=== PATIENT | female | born 1950 | race Caucasian/White ===

== ENCOUNTER 2016-06-16 11:52 | Inpatient (IN) | payer MEDICARE, OTHER ==
[~2016-06-16] VITALS: Ht 172.7 cm; Wt 56.7 kg
[2016-06-16] MEDS ORDERED: CLARITIN10 M2 ORAL ×2 (12:08→13:12)
[2016-06-16 12:30] VITALS: BP 123/78
[2016-06-16] MEDS ORDERED: Albuterol ud Inhalation HHN ONE (12:30)
[2016-06-16] MEDS ORDERED: Ipratropium 0.02% Inh Soln 2.5ml UD HHN ONE (12:30)
[2016-06-16 13:09] LABS: APPEARANCE,URINE CLEAR; KETONES,URINE NEGATIVE (NEGATIVE); LEUKOCYTE ESTERASE ,URINE 1+ (NEGATIVE); NITRITE,URINE NEGATIVE (NEGATIVE); PH,URINE 7 (4.5-8.0); PROTEIN,URINE NEGATIVE (NEGATIVE); UROBILINOGEN,URINE NORMAL MG/DL (0.0-1.0)
[2016-06-16 13:10] LABS: BASOPHILS % (AUTO) 1.5 % (0.0-2.0); EOSINOPHILS % (AUTO) 7.4 % (0.0-3.0); LYMPHOCYTES % (AUTO) 10.1 % (20.0-45.0); MEAN CORPUSCULAR HEMOGLOBIN 29.9 PG (27.0-31.0); MEAN CORPUSCULAR HGB CONC 32.2 G/DL (32.0-36.0); MEAN CORPUSCULAR VOLUME 93 FL (80-99); MEAN PLATELET VOLUME 6.4 FL (6.5-10.1); MONOCYTES % (AUTO) 7.9 % (1.0-10.0); NEUTROPHILS % (AUTO) 73.1 % (45.0-75.0); PLATELET COUNT 225 K/UL (150-450); RED BLOOD COUNT 4.12 M/UL (4.20-5.40); RED CELL DISTRIBUTION WIDTH 13.6 % (11.6-14.8); WHITE BLOOD COUNT 6.3 K/UL (4.8-10.8)
[2016-06-16] MEDS ORDERED: ZYPREXA10 MG ORAL (13:12)
[2016-06-16] MEDS ORDERED: NAMENDA5 MG ORAL (13:12)
[2016-06-16] MEDS ORDERED: ZOFRAN ODT4 MG ORAL (13:12)
[2016-06-16] MEDS ORDERED: BENZTROPINE ME0.5 MG PO (13:12)
[2016-06-16] MEDS ORDERED: VITAMIN D400 INTLU ORAL (13:12)
[2016-06-16] MEDS ORDERED: FLONASE ALLERG9.9 ML NS (13:12)
[2016-06-16] MEDS ORDERED: ATIVAN1 MG ORAL ×2 (13:12)
[2016-06-16] MEDS ORDERED: LORazepam Inj 2mg/ml 1ml ONE (13:19)
[2016-06-16 13:27] LABS: BACTERIA,URINE OCCASIONAL /HPF; RBC,URINE 0-2 /HPF (0 - 2); SQUAMOUS EPITHELIAL CELL,UR OCCASIONAL /LPF (NONE/OCC); WBC,URINE 0-2 /HPF (0 - 2)
[2016-06-16 13:29] LABS: ALANINE AMINOTRANSFERASE 10 U/L (3-33); ALBUMIN/GLOBULIN RATIO 1.3 (1.0-2.7); ANION GAP 12 (5-15); ASPARTATE AMINO TRANSFERASE 15 U/L (5-40); CALCIUM 9.5 mg/dL (8.6-10.2); CARBON DIOXIDE 28 mEQ/L (20-30); CHLORIDE 103 mEQ/L (98-107); CREATININE 0.9 mg/dL (0.5-0.9); GLOMERULAR FILTRATION RATE > 60 mL/min (>60); HEMOLYSIS 31; POTASSIUM 4.5 mEQ/L (3.4-4.9); SODIUM 143 mEQ/L (135-145); TOTAL PROTEIN 6.7 g/dL (6.6-8.7)
[2016-06-16] MEDS ORDERED: LORazepam Inj 2mg/ml 1ml IV ONE (13:30)
[2016-06-16 13:39] LABS: TROPONIN I < 0.30 ng/mL (<=0.30)
[2016-06-16 13:40] LABS: CKMB 1.6 ng/mL (< 3.8)
--- NOTE | 2016-06-16 14:09 | Diagnostic Imaging Report ---
Indication: Dyspnea Comparison: None A single view chest radiograph was obtained. Findings: No definite infiltrate or pulmonary vascular congestion identified. The heart is enlarged. The aorta is mildly enlarged consistent with atherosclerotic vascular disease. The bones are osteopenic. Impression: No acute disease
--- NOTE | 2016-06-16 14:51 | Emergency Room Report ---
History of Present Illness General Chief Complaint: Upper Respiratory Illness Source: Medical Record Present Illness HPI 66-year-old female presents to ED for evaluation. Per EMS patient had cough and congestion for many weeks now. Patient resides in convalescent home. Cough is productive. No reported fevers or chills. Patient has history of paranoid schizophrenia. Denies chest pain, notes shortness of breath. Notes history of COPD. Denies sick contacts or recent travel. Allergies: Coded Allergies: ASPIRIN (Verified Allergy, Unknown, 06/16/16) CELECOXIB (Verified Allergy, Unknown, 06/16/16) IBUPROFEN (Verified Allergy, Unknown, 06/16/16) Uncoded Allergies: NSAIDS (Allergy, Unknown, 06/16/16) Patient History Past Medical History: psych hx Past Surgical History: none Pertinent Family History: none Social History: Denies: alcohol use, drug use, smoking Now: No Immunizations: UTD Reviewed Nursing Documentation: PMH: Agreed, PSxH: Agreed Nursing Documentation-PMH History Of Psychiatric Problem: Yes - Paranoid schizophrenia Review of Systems All Other Systems: negative except mentioned in HPI Physical Exam Vital Signs Date Time Temp Pulse Resp B/P Pulse Ox O2 Delivery O2 Flow Rate FiO2 06/16/16 11:55 98.2 83 20 123/78 93 Room Air Sp02 EP Interpretation: reviewed, normal General Appearance: no apparent distress, alert, GCS 15, non-toxic Head: normocephalic Eyes: bilateral eye PERRL, bilateral eye normal inspection ENT: normal ENT inspection Neck: normal inspection Respiratory: chest non-tender, normal breath sounds, decreased breath sounds, speaking full sentences, wheezing Cardiovascular #1: regular rate, rhythm, no edema Gastrointestinal: normal bowel sounds, non tender, soft, non-distended, no guarding, no rebound Rectal: deferred Genitourinary: no CVA tenderness Musculoskeletal: normal inspection Neurologic: alert, oriented x3, responsive, motor strength/tone normal, sensory intact, speech normal Psychiatric: other - paranoid schizophrenia Skin: normal inspection Lymphatic: normal inspection Medical Decision Making Diagnostic Impression: Primary Impression: COPD (chronic obstructive pulmonary disease) Qualified Codes: J44.9 - Chronic obstructive pulmonary disease, unspecified ER Course Hospital Course 66-year-old F presenting to ED with SOB, congestion. h/o COPD Differential diagnoses include: Pneumonia, CHF exacerbation, pneumothorax, fluid overload Clinical course Patient placed on stretcher. 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 After initial history and physical, I ordered nebulizer treatments. I ordered labs, IV fluids, EKG, chest x-ray, blood cultures, UA. Labs - no leukocytosis noted, hemoglobin/hematocrit stable, electrolytes okay, lactate okay, troponins negative CXR - no infiltrates abx given. Case discussed with Dr. Shannon and he agreed to the patient to his service for further care and support I feel this is a highly complex case requiring extensive working including EKG/ Rhythm strip, Xray/CT/US, Blood/urine lab work, repeat exams while in ED, and administration of strong opiates/narcotics for pain control, admission to hospital or close patient follow up. Diagnosis - COPD Patient admitted to floor in serious conditon Labs Test 06/16/16 12:45 White Blood Count 6.3 K/UL (4.8-10.8) Red Blood Count 4.12 M/UL (4.20-5.40) Hemoglobin 12.3 G/DL (12.0-16.0) Hematocrit 38.4 % (37.0-47.0) Mean Corpuscular Volume 93 FL (80-99) Mean Corpuscular Hemoglobin 29.9 PG (27.0-31.0) Mean Corpuscular Hemoglobin Concent 32.2 G/DL (32.0-36.0) Red Cell Distribution Width 13.6 % (11.6-14.8) Platelet Count 225 K/UL (150-450) Mean Platelet Volume 6.4 FL (6.5-10.1) Neutrophils (%) (Auto) 73.1 % (45.0-75.0) Lymphocytes (%) (Auto) 10.1 % (20.0-45.0) Monocytes (%) (Auto) 7.9 % (1.0-10.0) Eosinophils (%) (Auto) 7.4 % (0.0-3.0) Basophils (%) (Auto) 1.5 % (0.0-2.0) Urine Color Pale yellow Urine Appearance Clear Urine pH 7 (4.5-8.0) Urine Specific [place] 1.005 (1.005-1.035) Urine Protein Negative (NEGATIVE) Urine Glucose (UA) Negative (NEGATIVE) Urine Ketones Negative (NEGATIVE) Urine Occult Blood Negative (NEGATIVE) Urine Nitrite Negative (NEGATIVE) Urine Bilirubin Negative (NEGATIVE) Urine Urobilinogen Normal MG/DL (0.0-1.0) Urine Leukocyte Esterase 1+ (NEGATIVE) Urine RBC 0-2 /HPF (0 - 2) Urine WBC 0-2 /HPF (0 - 2) Urine Squamous Epithelial Cells Occasional /LPF Urine Bacteria Occasional /HPF (NONE) Sodium Level 143 mEQ/L (135-145) Potassium Level 4.5 mEQ/L (3.4-4.9) Chloride Level 103 mEQ/L (98-107) Carbon Dioxide Level 28 mEQ/L (20-30) Anion Gap 12 (5-15) Blood Urea Nitrogen 14 mg/dL (7-23) Creatinine 0.9 mg/dL (0.5-0.9) Estimat Glomerular Filtration Rate > 60 mL/min (>60) Glucose Level 114 mg/dL (74-106) Lactic Acid Level 0.70 mmol/L (0.66-2.22) Calcium Level 9.5 mg/dL (8.6-10.2) Total Bilirubin < 0.2 mg/dL (0.0-1.2) Aspartate Amino Transf (AST/SGOT) 15 U/L (5-40) Alanine Aminotransferase (ALT/SGPT) 10 U/L (3-33) Alkaline Phosphatase 78 U/L (35-104) Total Creatine Kinase 101 U/L (26-140) Creatine Kinase MB 1.6 ng/mL (< 3.8) Creatine Kinase MB Relative Index 1.5 Troponin I < 0.30 ng/mL (<=0.30) Pro-B-Type Natriuretic Peptide 59 pg/mL (0-125) Total Protein 6.7 g/dL (6.6-8.7) Albumin 3.9 g/dL (3.5-5.2) Globulin 2.8 g/dL Albumin/Globulin Ratio 1.3 (1.0-2.7) EKG Diagnostic Results Rate: normal Rhythm: NSR ST Segments: no acute changes ASA given to the pt in ED: No Rhythm Strip Diag. Results EP Interpretation: yes Rhythm: NSR, no PVC's, no ectopy Chest X-Ray Diagnostic Results EP Interpretation: Yes Findings: no consolidation, no effusion, no pneumothorax, no acute cardiopulmonary disease Number of Views: 1 Last Vital Signs Date Time Temp Pulse Resp B/P Pulse Ox O2 Delivery O2 Flow Rate FiO2 06/16/16 14:37 98.2 06/16/16 12:30 83 20 Room Air 06/16/16 12:30 123/78 93 Status: improved Disposition: ADMITTED INPATIENT Condition: Serious Referrals: HERB SHANNON (PCP) HELLEN BARGER M.D. Jun 16, 2016 14:51
--- NOTE | 2016-06-16 14:55 | Consultation ---
History of Present Illness General Date patient seen: Jun 16, 2016 Chief Complaint: Upper Respiratory Illness Referring physician: Dr snell Present Illness HPI 66-year-old female with psychiatric disorder and COPD presents to ED for evaluation of cough and congestion for many weeks now. Patient resides in convalescent home. Cough is productive. No reported fevers or chills. Denies chest pain, notes shortness of breath. she was diagnosed to have acute exacerbation of COPD and admitted for further wok up Allergies: Coded Allergies: ASPIRIN (Verified Allergy, Unknown, 06/16/16) CELECOXIB (Verified Allergy, Unknown, 06/16/16) IBUPROFEN (Verified Allergy, Unknown, 06/16/16) Uncoded Allergies: NSAIDS (Allergy, Unknown, 06/16/16) Medication History Scheduled Loratadine (Claritin), 10 MG ORAL DAILY, (Reported) Loratadine (Claritin), 10 MG ORAL DAILY, (Reported) Lorazepam* (Ativan*), 1 MG ORAL EVERY 6 HOURS, (Reported) Lorazepam* (Ativan*), 1 MG ORAL THREE TIMES A DAY, (Reported) Memantine Hcl* (Namenda*), 5 MG ORAL TWICE A DAY, (Reported) Olanzapine* (Zyprexa*), 10 MG ORAL DAILY, (Reported) Olanzapine* (Zyprexa*), 15 MG ORAL DAILY, (Reported) Vitamin D (Vitamin D3), 1,000 UNITS ORAL DAILY, (Reported) Scheduled PRN Ondansetron Odt* (Zofran Odt*), 4 MG ORAL Q8H PRN for Nausea & Vomiting, ( Reported) Miscellaneous Medications Benztropine Mesylate (Benztropine Mesylate), 1 MG PO, (Reported) Fluticasone Propionate (Flonase Allergy Relief), 9.9 ML NS, (Reported) Patient History Healthcare decision maker Resuscitation status Advanced Directive on File Past Medical/Surgical History Past Medical/Surgical History: (1) Dementia (2) Psychiatric disorder Review of Systems All Other Systems: negative except mentioned in HPI Physical Exam General Appearance: WD/WN Lines, tubes and drains: peripheral HEENT: normocephalic, atraumatic Neck: non-tender Respiratory/Chest: chest wall non-tender Cardiovascular/Chest: normal peripheral pulses, normal rate Abdomen: normal bowel sounds Genitourinary/Rectal: normal genital exam Extremities: normal range of motion Skin Exam: normal pigmentation 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 Last 24 Hour Vital Signs Date Time Temp Pulse Resp B/P Pulse Ox O2 Delivery O2 Flow Rate FiO2 06/16/16 14:37 98.2 06/16/16 12:30 83 20 Room Air 06/16/16 12:30 20 123/78 93 Room Air 06/16/16 11:55 98.2 83 20 123/78 93 Room Air Laboratory Tests Test 06/16/16 12:45 White Blood Count 6.3 K/UL (4.8-10.8) Red Blood Count 4.12 M/UL (4.20-5.40) L Hemoglobin 12.3 G/DL (12.0-16.0) Hematocrit 38.4 % (37.0-47.0) Mean Corpuscular Volume 93 FL (80-99) Mean Corpuscular Hemoglobin 29.9 PG (27.0-31.0) Mean Corpuscular Hemoglobin Concent 32.2 G/DL (32.0-36.0) Red Cell Distribution Width 13.6 % (11.6-14.8) Platelet Count 225 K/UL (150-450) Mean Platelet Volume 6.4 FL (6.5-10.1) L Neutrophils (%) (Auto) 73.1 % (45.0-75.0) Lymphocytes (%) (Auto) 10.1 % (20.0-45.0) L Monocytes (%) (Auto) 7.9 % (1.0-10.0) Eosinophils (%) (Auto) 7.4 % (0.0-3.0) H Basophils (%) (Auto) 1.5 % (0.0-2.0) Urine Color Pale yellow Urine Appearance Clear Urine pH 7 (4.5-8.0) Urine Specific [place] 1.005 (1.005-1.035) Urine Protein Negative (NEGATIVE) Urine Glucose (UA) Negative (NEGATIVE) Urine Ketones Negative (NEGATIVE) Urine Occult Blood Negative (NEGATIVE) Urine Nitrite Negative (NEGATIVE) Urine Bilirubin Negative (NEGATIVE) Urine Urobilinogen Normal MG/DL (0.0-1.0) Urine Leukocyte Esterase 1+ (NEGATIVE) H Urine RBC 0-2 /HPF (0 - 2) Urine WBC 0-2 /HPF (0 - 2) Urine Squamous Epithelial Cells Occasional /LPF Urine Bacteria Occasional /HPF (NONE) Sodium Level 143 mEQ/L (135-145) Potassium Level 4.5 mEQ/L (3.4-4.9) Chloride Level 103 mEQ/L (98-107) Carbon Dioxide Level 28 mEQ/L (20-30) Anion Gap 12 (5-15) Blood Urea Nitrogen 14 mg/dL (7-23) Creatinine 0.9 mg/dL (0.5-0.9) Estimat Glomerular Filtration Rate > 60 mL/min (>60) Glucose Level 114 mg/dL (74-106) H Lactic Acid Level 0.70 mmol/L (0.66-2.22) Calcium Level 9.5 mg/dL (8.6-10.2) Total Bilirubin < 0.2 mg/dL (0.0-1.2) Aspartate Amino Transf (AST/SGOT) 15 U/L (5-40) Alanine Aminotransferase (ALT/SGPT) 10 U/L (3-33) Alkaline Phosphatase 78 U/L (35-104) Total Creatine Kinase 101 U/L (26-140) Creatine Kinase MB 1.6 ng/mL (< 3.8) Creatine Kinase MB Relative Index 1.5 Troponin I < 0.30 ng/mL (<=0.30) Pro-B-Type Natriuretic Peptide 59 pg/mL (0-125) Total Protein 6.7 g/dL (6.6-8.7) Albumin 3.9 g/dL (3.5-5.2) Globulin 2.8 g/dL Albumin/Globulin Ratio 1.3 (1.0-2.7) Microbiology Date/Time Source Procedure Growth Status 06/16/16 13:45 Nasal Nares Influenza Types A,B Antigen (BEATRIZ) - Final Complete Height (Feet): 5 Height (Inches): 8.00 Weight (Pounds): 125 Medications Current Medications Medications (Trade) Dose Ordered Sig/Toyin Route PRN Reason Start Time Stop Time Status Last Admin Dose Admin Levofloxacin (Levaquin 750mg/ D5W) 150 ml @ 100 mls/hr NOW ONCE IVPB 06/16/16 14:30 06/16/16 15:59 06/16/16 14:35 Assessment/Plan Problem List: (1) Purulent bronchitis ICD Codes: J41.1 - Mucopurulent chronic bronchitis SNOMED: 54140078 (2) Acute respiratory failure ICD Codes: J96.00 - Acute respiratory failure, unspecified whether with hypoxia or hypercapnia SNOMED: 70178724 (3) Dementia ICD Codes: F03.90 - Unspecified dementia without behavioral disturbance SNOMED: 80075702 (4) COPD (chronic obstructive pulmonary disease) ICD Codes: J44.9 - Chronic obstructive pulmonary disease, unspecified SNOMED: 54152692 Qualifiers: Qualified Codes: J44.9 - Chronic obstructive pulmonary disease, unspecified Assessment/Plan respiratory treatment IV antibioitcs titrate fio2 dvt prophylaxis continue psychiatric meds. MATT JACKSON Jun 16, 2016 14:55
[2016-06-16] MEDS ORDERED: Nitroglycerin Subl 0.4mg tab (Bottle Of 25) SL PRN ×2 (15:00→16:15)
[2016-06-16] MEDS ORDERED: DuoNeb 0.5-3(2.5)mg/3ml neb HHN PRN (15:00)
[2016-06-16] MEDS ORDERED: Promethazine/Codeine 5ml UD ORAL PRN (15:00)
[2016-06-16] MEDS ORDERED: Morphine Sulfate 2mg/ml Inj IVP PRN (15:00)
[2016-06-16] MEDS ORDERED: LORazepam Inj 2mg/ml 1ml IV PRN (15:00)
[2016-06-16] MEDS ORDERED: Ketorolac 30mg Inj IV PRN ×2 (15:00→16:15)
--- NOTE | 2016-06-16 15:01 | Infectious Diseases Prog Note ---
Assessment/Plan Problems: (1) Upper respiratory infection Assessment & Plan: no evidence of influenza, will start levofloxacin (2) Purulent bronchitis Assessment & Plan: will send sputum for culture , and start levofloxacin (3) Psychiatric disorder Assessment & Plan: continue psych meds, follow up with psych (4) Dementia Assessment & Plan: continue supportive care Subjective Allergies: Coded Allergies: ASPIRIN (Verified Allergy, Unknown, 06/16/16) CELECOXIB (Verified Allergy, Unknown, 06/16/16) IBUPROFEN (Verified Allergy, Unknown, 06/16/16) Uncoded Allergies: NSAIDS (Allergy, Unknown, 06/16/16) Objective Vital Signs Last 24 Hour Vital Signs Date Time Temp Pulse Resp B/P Pulse Ox O2 Delivery O2 Flow Rate FiO2 06/16/16 14:37 98.2 06/16/16 12:30 83 20 Room Air 06/16/16 12:30 20 123/78 93 Room Air 06/16/16 11:55 98.2 83 20 123/78 93 Room Air Height (Feet): 5 Height (Inches): 8.00 Weight (Pounds): 125 Microbiology Date/Time Source Procedure Growth Status 06/16/16 13:45 Nasal Nares Influenza Types A,B Antigen (BEATRIZ) - Final Complete Laboratory Tests Test 06/16/16 12:45 White Blood Count 6.3 K/UL (4.8-10.8) Red Blood Count 4.12 M/UL (4.20-5.40) L Hemoglobin 12.3 G/DL (12.0-16.0) Hematocrit 38.4 % (37.0-47.0) Mean Corpuscular Volume 93 FL (80-99) Mean Corpuscular Hemoglobin 29.9 PG (27.0-31.0) Mean Corpuscular Hemoglobin Concent 32.2 G/DL (32.0-36.0) Red Cell Distribution Width 13.6 % (11.6-14.8) Platelet Count 225 K/UL (150-450) Mean Platelet Volume 6.4 FL (6.5-10.1) L Neutrophils (%) (Auto) 73.1 % (45.0-75.0) Lymphocytes (%) (Auto) 10.1 % (20.0-45.0) L Monocytes (%) (Auto) 7.9 % (1.0-10.0) Eosinophils (%) (Auto) 7.4 % (0.0-3.0) H Basophils (%) (Auto) 1.5 % (0.0-2.0) Urine Color Pale yellow Urine Appearance Clear Urine pH 7 (4.5-8.0) Urine Specific [place] 1.005 (1.005-1.035) Urine Protein Negative (NEGATIVE) Urine Glucose (UA) Negative (NEGATIVE) Urine Ketones Negative (NEGATIVE) Urine Occult Blood Negative (NEGATIVE) Urine Nitrite Negative (NEGATIVE) Urine Bilirubin Negative (NEGATIVE) Urine Urobilinogen Normal MG/DL (0.0-1.0) Urine Leukocyte Esterase 1+ (NEGATIVE) H Urine RBC 0-2 /HPF (0 - 2) Urine WBC 0-2 /HPF (0 - 2) Urine Squamous Epithelial Cells Occasional /LPF Urine Bacteria Occasional /HPF (NONE) Sodium Level 143 mEQ/L (135-145) Potassium Level 4.5 mEQ/L (3.4-4.9) Chloride Level 103 mEQ/L (98-107) Carbon Dioxide Level 28 mEQ/L (20-30) Anion Gap 12 (5-15) Blood Urea Nitrogen 14 mg/dL (7-23) Creatinine 0.9 mg/dL (0.5-0.9) Estimat Glomerular Filtration Rate > 60 mL/min (>60) Glucose Level 114 mg/dL (74-106) H Lactic Acid Level 0.70 mmol/L (0.66-2.22) Calcium Level 9.5 mg/dL (8.6-10.2) Total Bilirubin < 0.2 mg/dL (0.0-1.2) Aspartate Amino Transf (AST/SGOT) 15 U/L (5-40) Alanine Aminotransferase (ALT/SGPT) 10 U/L (3-33) Alkaline Phosphatase 78 U/L (35-104) Total Creatine Kinase 101 U/L (26-140) Creatine Kinase MB 1.6 ng/mL (< 3.8) Creatine Kinase MB Relative Index 1.5 Troponin I < 0.30 ng/mL (<=0.30) Pro-B-Type Natriuretic Peptide 59 pg/mL (0-125) Total Protein 6.7 g/dL (6.6-8.7) Albumin 3.9 g/dL (3.5-5.2) Globulin 2.8 g/dL Albumin/Globulin Ratio 1.3 (1.0-2.7) Current Medications Medications (Trade) Dose Ordered Sig/Toyin Route PRN Reason Start Time Stop Time Status Last Admin Dose Admin Albuterol/ Ipratropium (DuoNeb 0.5-3(2.5)mg/3ml) 3 ml EVERY 4 HOURS PRN HHN dyspnea 06/16/16 15:00 06/21/16 14:59 UNV Dextrose (Dextrose 50%) STAT PRN IV Hypoglycemia 06/16/16 15:00 07/16/16 14:59 UNV Heparin Sodium (Porcine) (Heparin 5000 units/ml) 5,000 units EVERY 12 HOURS SUBQ 06/16/16 21:00 07/16/16 20:59 UNV Insulin Aspart (NovoLOG) BEFORE MEALS AND HS SUBQ 06/16/16 16:30 07/16/16 16:29 UNV Ketorolac Tromethamine (Toradol 30mg) 30 mg EVERY 8 HOURS PRN IV moderate pain 4-6 06/16/16 15:00 06/21/16 14:59 UNV Levofloxacin 150 ml @ 100 mls/hr NOW ONCE IVPB 06/16/16 14:30 06/16/16 15:59 06/16/16 14:35 Levofloxacin (Levaquin) 100 ml @ 100 mls/hr Q24HRS IVPB 06/16/16 15:00 06/23/16 14:59 UNV Lorazepam (Ativan 2mg/ml 1ml) 0.5 mg Q4H PRN IV For Anxiety 06/16/16 15:00 06/23/16 14:59 UNV Memantine (Namenda) 5 mg TWICE A DAY ORAL 06/16/16 18:00 07/16/16 17:59 UNV Methylprednisolone Sodium Succinate (Solu-MEDROL) 60 mg EVERY 6 HOURS IV 06/16/16 18:00 07/16/16 17:59 UNV Morphine Sulfate (Morphine Sulfate) 2 mg EVERY 4 HOURS PRN IVP severe pain 7-10 06/16/16 15:00 06/23/16 14:59 UNV Nitroglycerin (Ntg) 0.4 mg Q5M X 3 DOSES PRN SL Prn Chest Pain 06/16/16 15:00 07/16/16 14:59 UNV Ondansetron HCl (Zofran) 4 mg Q6H PRN IVP Nausea & Vomiting 06/16/16 15:00 07/16/16 14:59 UNV Piperacillin Sod/ Tazobactam Sod/ Dextrose (Zosyn/D5W 55ml) 50 ml @ 100 mls/hr EVERY 8 HOURS IV 06/16/16 22:00 06/21/16 21:59 UNV Promethazine HCl/ Codeine (Phenergan with Codeine) 5 ml EVERY 6 HOURS PRN ORAL cough 06/16/16 15:00 07/16/16 14:59 UNV Temazepam (Restoril) 15 mg HSPRN PRN ORAL Insomnia 06/16/16 15:00 06/23/16 14:59 UNV Theophylline 100 mg 100 mg EVERY 12 HOURS ORAL 06/16/16 21:00 07/16/16 20:59 UNV Ava Harvey M.D. Jun 16, 2016 15:01
[2016-06-16] MEDS ORDERED: NovoLOG Insulin Flexpen SUBQ SCH (16:30)
[2016-06-16] MEDS: DuoNeb 0.5-3(2.5)mg/3ml neb HHN PRN ×2 (17:16→21:03)
[2016-06-16] MEDS: Promethazine/Codeine 5ml UD ORAL PRN (17:53)
[2016-06-16] MEDS: Memantine 5 MG TAB ORAL SCH (17:54)
[2016-06-16] MEDS: Solu-MEDROL 125mg Inj IV SCH (17:55)
[2016-06-16] MEDS ORDERED: Memantine 10mg tab ORAL SCH (18:00)
[2016-06-16] MEDS ORDERED: Solu-MEDROL 125mg Inj IV SCH (18:00)
[2016-06-16] MEDS: Morphine Sulfate 2mg/ml Inj IVP PRN (19:44)
[2016-06-16 20:00] VITALS: BP 153/87
[2016-06-16] MEDS ORDERED: Theophylline ER 100mg ORAL SCH (21:00)
[2016-06-16] MEDS ORDERED: Heparin 5000 units/ml inj SUBQ SCH (21:00)
[2016-06-16] MEDS: Theophylline ER 100mg ORAL SCH (21:38)
[2016-06-16] MEDS: NovoLOG Insulin Flexpen SUBQ SCH (21:39)
[2016-06-16] MEDS: Heparin 5000 units/ml inj SUBQ SCH (21:42)
--- NOTE | 2016-06-16 22:28 | Consultation ---
DATE OF CONSULTATION: INFECTIOUS DISEASE CONSULTATION REASON FOR CONSULTATION: Upper respiratory infection, bronchitis, recommendation for antibiotics therapy. REQUESTING PHYSICIAN: Antonio Alston M.D. HISTORY OF PRESENT ILLNESS: The patient is a 66-year-old female with past medical history of chronic obstructive pulmonary disease, presented to [facility] emergency room with chief complaint of cough and congestion for many weeks. The patient initially had dry cough now mildly productive of whitish phlegm. She lives in a convalescent home. Her phlegm sometimes is greenish. Denied any fever or chills. No chest pain or shortness of breath. No sick contacts or recent travel. Her temperature was 98.2 in the emergency room. Her O2 saturation 93% on room air. She was found to be wheezing with diminished breathing sounds on both lung matias. Chest x-ray did not show any acute infiltration. Influenza screening was negative. The patient was admitted to the hospital for COPD exacerbation, possible bronchitis, and I was asked for the antibiotics recommendation by the primary provider. REVIEW OF SYSTEMS: Unable to obtain, the patient is a poor historian. PAST MEDICAL HISTORY: Significant for schizophrenia with paranoia. PAST SURGICAL HISTORY: Negative. ALLERGIES: She is allergic to aspirin, and ibuprofen. FAMILY HISTORY: Not able to obtain. SOCIAL HISTORY: The patient had no recent drugs, tobacco, or alcohol abuse. MEDICATIONS: She is on Zosyn, heparin, theophylline, methylprednisolone, insulin, albuterol, ketorolac, lorazepam, morphine, nitroglycerin, Zofran, Phenergan, Restoril, and dextrose. PHYSICAL EXAMINATION: VITAL SIGNS: Temperature 98.2, pulse 83, respirations 20, blood pressure 123/78, and pulse oximetry 93% on room air. GENERAL: The patient is a middle-aged female, lying in bed, alert, not in distress, wheezing. HEENT: Normocephalic and atraumatic. Pupils are both reactive to light equally. Moist oral mucosa. No exudate or thrush. NECK: Supple. No lymphadenopathy. CARDIOVASCULAR: Regular rate and rhythm. No murmur or gallop. LUNGS: She had diminished breathing sounds and diffuse wheezing on both sides. ABDOMEN: Soft, nontender, and nondistended. Positive bowel sounds. No hepatosplenomegaly. No ascites. EXTREMITIES: No edema or cyanosis. SKIN: No rash or hives. LABORATORY AND DIAGNOSTIC DATA: White count is 6.3, hemoglobin 12.3, hematocrit 38.4, and platelet count 225,000. BUN of 14, creatinine of 0.9, and glucose of 114. AST of 16. Urinalysis was negative for infection. Microbiology, influenza screening A and B both were negative. Imaging: Chest x-ray showed no acute infiltrates and no acute disease. ASSESSMENT AND PLAN: 1. Upper respiratory infection with no evidence of influenza. We will start levofloxacin empirically and monitor symptoms closely. We will send sputum culture and blood culture. 2. acute bronchitis. We will send sputum culture and blood culture and start levofloxacin, empiric treatment. 3. Psychiatric disorder. Continue psychiatric medications. Follow up with psychiatrist. 4. Dementia. Continue supportive care. Ava Harvey M.D. DR: LEONID JOB#: [id number] CC: ISAC
[2016-06-16] MEDS: LORazepam Inj 2mg/ml 1ml IV PRN (23:55)
[2016-06-17] MEDS: Promethazine/Codeine 5ml UD ORAL PRN ×3 (00:36→17:41)
[2016-06-17] MEDS: Solu-MEDROL 125mg Inj IV SCH ×4 (00:40→17:36)
[2016-06-17] MEDS: Morphine Sulfate 2mg/ml Inj IVP PRN ×3 (00:41→21:31)
[2016-06-17] MEDS: DuoNeb 0.5-3(2.5)mg/3ml neb HHN PRN ×7 (01:14→23:48)
[2016-06-17 04:00] VITALS: BP 100/63
[2016-06-17] MEDS: NovoLOG Insulin Flexpen SUBQ SCH ×4 (06:30→21:32)
[2016-06-17 08:00] VITALS: BP 150/81
[2016-06-17] MEDS: Memantine 5 MG TAB ORAL SCH ×2 (08:22→17:37)
[2016-06-17] MEDS: Theophylline ER 100mg ORAL SCH ×2 (08:22→21:30)
[2016-06-17] MEDS: LORazepam Inj 2mg/ml 1ml IV PRN ×2 (08:22→17:40)
[2016-06-17] MEDS: Heparin 5000 units/ml inj SUBQ SCH ×2 (08:23→21:32)
[2016-06-17 12:00] VITALS: BP 109/64
--- NOTE | 2016-06-17 14:59 | General Progress Note ---
Assessment/Plan Problem List: (1) Pneumonia ICD Codes: J18.9 - Pneumonia, unspecified organism SNOMED: 211603251 (2) Sepsis ICD Codes: A41.9 - Sepsis, unspecified organism SNOMED: 63351598 (3) Purulent bronchitis ICD Codes: J41.1 - Mucopurulent chronic bronchitis SNOMED: 48347891 (4) Acute respiratory failure ICD Codes: J96.00 - Acute respiratory failure, unspecified whether with hypoxia or hypercapnia SNOMED: 74314801 (5) Dementia ICD Codes: F03.90 - Unspecified dementia without behavioral disturbance SNOMED: 05716641 (6) Upper respiratory infection ICD Codes: J06.9 - Acute upper respiratory infection, unspecified SNOMED: 52501347 (7) Psychiatric disorder ICD Codes: F99 - Mental disorder, not otherwise specified SNOMED: 77755284, 322044608 Status: stable, progressing, tolerating diet Assessment/Plan o2 pulm tx abx ot pt diet cbc bmp am Subjective Constitutional: Reports: weakness Respiratory: Reports: shortness of breath Allergies: Coded Allergies: ASPIRIN (Verified Allergy, Unknown, 06/16/16) CELECOXIB (Verified Allergy, Unknown, 06/16/16) IBUPROFEN (Verified Allergy, Unknown, 06/16/16) Uncoded Allergies: NSAIDS (Allergy, Unknown, 06/16/16) All Systems: reviewed and negative except above Subjective sl sob in bed Objective Last 24 Hour Vital Signs Date Time Temp Pulse Resp B/P Pulse Ox O2 Delivery O2 Flow Rate FiO2 06/17/16 12:00 98.4 95 19 109/64 100 Nasal Cannula 2.0 06/17/16 11:51 91 18 96 Nasal Cannula 28 06/17/16 11:41 95 20 96 Nasal Cannula 28 06/17/16 08:00 97.5 112 18 150/81 99 Room Air 06/17/16 07:44 79 20 96 Room Air 21 06/17/16 07:34 88 20 97 Room Air 21 06/17/16 07:33 88 20 Room Air 21 06/17/16 04:00 98.1 86 16 100/63 92 Room Air 06/17/16 03:45 88 20 95 Room Air 21 06/17/16 03:30 80 20 88 Room Air 21 06/16/16 23:45 91 20 93 Room Air 21 06/16/16 23:30 86 20 89 Room Air 21 06/16/16 21:05 90 20 95 Room Air 21 06/16/16 21:04 88 20 91 Room Air 21 06/16/16 20:00 97.9 95 18 153/87 91 Nasal Cannula 2.0 06/16/16 19:30 70 20 Room Air 21 06/16/16 17:26 78 20 98 Room Air 21 06/16/16 17:05 76 24 90 Room Air 21 06/16/16 17:04 76 24 Room Air 21 06/16/16 15:57 98.2 81 20 138/72 96 Nasal Cannula 2.0 Intake and Output 06/16/16 06/17/16 19:00 07:00 Intake Total 360 ml Balance 360 ml Intake Oral 360 ml # Voids 2 Height (Feet): 5 Height (Inches): 8.00 Weight (Pounds): 125 General Appearance: lethargic EENT: normal ENT inspection Neck: normal alignment Cardiovascular: normal peripheral pulses, normal rate, regular rhythm Respiratory/Chest: chest wall non-tender, lungs clear, normal breath sounds Abdomen: normal bowel sounds, non tender, soft Extremities: normal inspection Edema: no edema noted Arm (L), no edema noted Arm (R), no edema noted Leg (L), no edema noted Leg (R), no edema noted Pedal (L), no edema noted Pedal (R), no edema noted Generalized Neurologic: motor weakness Skin: normal pigmentation, warm/dry HERB SHANNON Jun 17, 2016 14:59
[2016-06-17 16:06] VITALS: BP 116/66
--- NOTE | 2016-06-17 17:48 | Pulmonology Progress Note ---
Assessment/Plan Problems: (1) Purulent bronchitis (2) Acute respiratory failure (3) Dementia (4) COPD (chronic obstructive pulmonary disease) Assessment/Plan improving no sputum culture yet continue antibiotics same dose steroids check labs Subjective ROS Limited/Unobtainable: No Interval Events: less cough, less short of breath Allergies: Coded Allergies: ASPIRIN (Verified Allergy, Unknown, 06/16/16) CELECOXIB (Verified Allergy, Unknown, 06/16/16) IBUPROFEN (Verified Allergy, Unknown, 06/16/16) Uncoded Allergies: NSAIDS (Allergy, Unknown, 06/16/16) Objective Last 24 Hour Vital Signs Date Time Temp Pulse Resp B/P Pulse Ox O2 Delivery O2 Flow Rate FiO2 06/17/16 16:06 99.0 100 21 116/66 94 Room Air 06/17/16 15:47 89 18 98 Nasal Cannula 28 06/17/16 15:37 84 18 98 Nasal Cannula 28 06/17/16 12:00 98.4 95 19 109/64 100 Nasal Cannula 2.0 06/17/16 11:51 91 18 96 Nasal Cannula 28 06/17/16 11:41 95 20 96 Nasal Cannula 28 06/17/16 08:00 97.5 112 18 150/81 99 Room Air 06/17/16 07:44 79 20 96 Room Air 21 06/17/16 07:34 88 20 97 Room Air 21 06/17/16 07:33 88 20 Room Air 21 06/17/16 04:00 98.1 86 16 100/63 92 Room Air 06/17/16 03:45 88 20 95 Room Air 21 06/17/16 03:30 80 20 88 Room Air 21 06/16/16 23:45 91 20 93 Room Air 21 06/16/16 23:30 86 20 89 Room Air 21 06/16/16 21:05 90 20 95 Room Air 21 06/16/16 21:04 88 20 91 Room Air 21 06/16/16 20:00 97.9 95 18 153/87 91 Nasal Cannula 2.0 06/16/16 19:30 70 20 Room Air 21 Intake and Output 06/16/16 06/17/16 18:59 06:59 Intake Total 360 ml Balance 360 ml Intake Oral 360 ml # Voids 2 General Appearance: WD/WN HEENT: normocephalic, atraumatic Respiratory/Chest: chest wall non-tender, lungs clear Cardiovascular: normal peripheral pulses, normal rate Abdomen: normal bowel sounds Genitourinary: normal external genitalia Extremities: no cyanosis 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, no motor/sensory deficits Microbiology Date/Time Source Procedure Growth Status 06/16/16 13:45 Nasal Nares Influenza Types A,B Antigen (BEATRIZ) - Final Complete Current Medications Medications (Trade) Dose Ordered Sig/Toyin Route PRN Reason Start Time Stop Time Status Last Admin Dose Admin Albuterol/ Ipratropium 3 ml 3 ml EVERY 4 HOURS PRN HHN dyspnea 06/16/16 16:15 06/21/16 14:59 06/17/16 15:37 Dextrose (Dextrose 50%) STAT PRN IV Hypoglycemia 06/16/16 16:15 07/16/16 14:59 Heparin Sodium (Porcine) (Heparin 5000 units/ml) 5,000 units EVERY 12 HOURS SUBQ 06/16/16 21:00 07/16/16 20:59 06/17/16 08:23 Insulin Aspart (NovoLOG) BEFORE MEALS AND HS SUBQ 06/16/16 21:00 07/16/16 20:59 06/16/16 21:39 Ketorolac Tromethamine (Toradol 30mg) 30 mg EVERY 8 HOURS PRN IV moderate pain 4-6 06/16/16 16:15 06/21/16 14:59 Levofloxacin (Levaquin) 100 ml @ 100 mls/hr Q24HRS IVPB 06/17/16 14:00 06/24/16 13:59 06/17/16 13:15 Lorazepam (Ativan 2mg/ml 1ml) 0.5 mg Q4H PRN IV For Anxiety 06/16/16 16:15 06/23/16 14:59 06/17/16 08:22 Memantine (Namenda) 5 mg TWICE A DAY ORAL 06/16/16 18:00 07/16/16 17:59 06/17/16 08:22 Methylprednisolone Sodium Succinate (Solu-MEDROL) 60 mg EVERY 6 HOURS IV 06/16/16 18:00 07/16/16 17:59 06/17/16 11:22 Morphine Sulfate (Morphine Sulfate) 2 mg EVERY 4 HOURS PRN IVP severe pain 7-10 06/16/16 16:15 06/23/16 14:59 06/17/16 11:17 Nitroglycerin (Ntg) 0.4 mg Q5M X 3 DOSES PRN SL Prn Chest Pain 06/16/16 16:15 07/16/16 14:59 Ondansetron HCl (Zofran) 4 mg Q6H PRN IVP Nausea & Vomiting 06/16/16 16:15 07/16/16 14:59 Promethazine HCl/ Codeine (Phenergan with Codeine) 5 ml EVERY 6 HOURS PRN ORAL cough 06/16/16 16:15 07/16/16 14:59 06/17/16 08:42 Temazepam (Restoril) 15 mg HSPRN PRN ORAL Insomnia 06/16/16 16:15 06/23/16 14:59 Theophylline (Norberto-Dur) 100 mg EVERY 12 HOURS ORAL 06/16/16 21:00 07/16/16 20:59 06/17/16 08:22 MATT JACKSON Jun 17, 2016 17:48
[2016-06-17 20:00] VITALS: BP 133/65
--- NOTE | 2016-06-17 20:19 | Cardiology Report ---
APPROVED REPORT EKG Measurement Heart [id number] Normal sinus rhythm Cannot rule out Anterior infarct, age undetermined Abnormal ECG
[2016-06-18] VITALS: BP 122/61
[2016-06-18] MEDS: Solu-MEDROL 125mg Inj IV SCH ×4 (00:36→21:53)
[2016-06-18] MEDS: LORazepam Inj 2mg/ml 1ml IV PRN ×2 (03:51→18:18)
[2016-06-18 04:00] VITALS: BP 122/64
[2016-06-18] MEDS: DuoNeb 0.5-3(2.5)mg/3ml neb HHN PRN ×5 (04:02→22:28)
[2016-06-18] MEDS: NovoLOG Insulin Flexpen SUBQ SCH ×4 (06:51→21:51)
[2016-06-18 07:22] LABS: MEAN CORPUSCULAR HEMOGLOBIN 29.8 PG (27.0-31.0); MEAN CORPUSCULAR HGB CONC 32.3 G/DL (32.0-36.0); MEAN CORPUSCULAR VOLUME 92 FL (80-99); MEAN PLATELET VOLUME 5.8 FL (6.5-10.1); PLATELET COUNT 235 K/UL (150-450); RED BLOOD COUNT 3.91 M/UL (4.20-5.40); RED CELL DISTRIBUTION WIDTH 13.6 % (11.6-14.8); WHITE BLOOD COUNT 13.6 K/UL (4.8-10.8)
[2016-06-18 07:29] LABS: ANION GAP 11 (5-15); CALCIUM 9.1 mg/dL (8.6-10.2); CARBON DIOXIDE 29 mEQ/L (20-30); CHLORIDE 101 mEQ/L (98-107); CREATININE 0.8 mg/dL (0.5-0.9); GLOMERULAR FILTRATION RATE > 60 mL/min (>60); HEMOLYSIS 8; POTASSIUM 4.2 mEQ/L (3.4-4.9); SODIUM 141 mEQ/L (135-145)
[2016-06-18 08:00] VITALS: BP 101/49
[2016-06-18 08:05] LABS: BAND NEUTROPHILS % (MANUAL) 0 % (0-8); BASOPHILS % (MANUAL) 0 % (0-2); EOSINOPHILS % (MANUAL) 0 % (0-3); LYMPHOCYTES % (MANUAL) 1 % (20-45); NEUTROPHILS % (MANUAL) 95 % (45-75); PLATELET ESTIMATE ADEQUATE; TOTAL CELLS COUNTED 100
[2016-06-18 08:06] LABS: PLATELET MORPHOLOGY NORMAL
[2016-06-18] MEDS: Theophylline ER 100mg ORAL SCH ×2 (08:42→21:48)
[2016-06-18] MEDS: Memantine 5 MG TAB ORAL SCH ×2 (08:42→17:35)
[2016-06-18] MEDS: Morphine Sulfate 2mg/ml Inj IVP PRN ×2 (08:42→16:33)
[2016-06-18] MEDS: Heparin 5000 units/ml inj SUBQ SCH ×2 (08:43→21:50)
--- NOTE | 2016-06-18 08:50 | General Progress Note ---
Assessment/Plan Problem List: (1) Pneumonia ICD Codes: J18.9 - Pneumonia, unspecified organism SNOMED: 968009026 (2) Sepsis ICD Codes: A41.9 - Sepsis, unspecified organism SNOMED: 36506549 (3) Purulent bronchitis ICD Codes: J41.1 - Mucopurulent chronic bronchitis SNOMED: 07854606 (4) Acute respiratory failure ICD Codes: J96.00 - Acute respiratory failure, unspecified whether with hypoxia or hypercapnia SNOMED: 97629395 (5) Dementia ICD Codes: F03.90 - Unspecified dementia without behavioral disturbance SNOMED: 39536049 (6) Upper respiratory infection ICD Codes: J06.9 - Acute upper respiratory infection, unspecified SNOMED: 15802283 (7) Psychiatric disorder ICD Codes: F99 - Mental disorder, not otherwise specified SNOMED: 43716914, 214751786 Status: stable, progressing, tolerating diet Assessment/Plan o2 pulm tx abx ot pt diet cbc bmp am ltach eval Subjective Constitutional: Reports: weakness Allergies: Coded Allergies: ASPIRIN (Verified Allergy, Unknown, 06/16/16) CELECOXIB (Verified Allergy, Unknown, 06/16/16) IBUPROFEN (Verified Allergy, Unknown, 06/16/16) Uncoded Allergies: NSAIDS (Allergy, Unknown, 06/16/16) All Systems: reviewed and negative except above Subjective sl sob in bed Objective Last 24 Hour Vital Signs Date Time Temp Pulse Resp B/P Pulse Ox O2 Delivery O2 Flow Rate FiO2 06/18/16 07:38 Nasal Cannula 06/18/16 07:36 Nasal Cannula 2.0 06/18/16 07:36 Nasal Cannula 06/18/16 07:35 95 Nasal Cannula 2.0 06/18/16 04:00 97.9 98 20 122/64 98 Nasal Cannula 2.0 06/18/16 03:59 105 18 98 Nasal Cannula 2.0 28 06/18/16 03:49 104 18 97 Nasal Cannula 2.0 28 06/18/16 00:00 98.2 80 20 122/61 99 Nasal Cannula 2.0 06/17/16 23:57 104 18 97 Nasal Cannula 2.0 28 06/17/16 23:49 102 20 95 Nasal Cannula 2.0 28 06/17/16 20:27 96 Nasal Cannula 2.0 28 06/17/16 20:27 Nasal Cannula 2.0 28 06/17/16 20:25 92 24 92 Room Air 21 06/17/16 20:00 98.6 82 20 133/65 93 Nasal Cannula 2.0 06/17/16 16:06 99.0 100 21 116/66 94 Nasal Cannula 2.0 06/17/16 15:47 89 18 98 Nasal Cannula 28 06/17/16 15:37 84 18 98 Nasal Cannula 28 06/17/16 12:00 98.4 95 19 109/64 100 Nasal Cannula 2.0 06/17/16 11:51 91 18 96 Nasal Cannula 28 06/17/16 11:41 95 20 96 Nasal Cannula 28 Intake and Output 06/17/16 06/18/16 19:00 07:00 Intake Total 75 ml 620 ml Balance 75 ml 620 ml Intake Oral 75 ml 620 ml # Voids 2 5 # Bowel Movements 2 Laboratory Tests 06/18/16 06:20: White Blood Count 13.6H, Red Blood Count 3.91L, Hemoglobin 11.7L, Hematocrit 36.1L, Mean Corpuscular Volume 92, Mean Corpuscular Hemoglobin 29.8, Mean Corpuscular Hemoglobin Concent 32.3, Red Cell Distribution Width 13.6, Platelet Count 235, Mean Platelet Volume 5.8L, Neutrophils (%) (Auto) , Lymphocytes (%) ( Auto) , Monocytes (%) (Auto) , Eosinophils (%) (Auto) , Basophils (%) (Auto) , Differential Total Cells Counted 100, Neutrophils % (Manual) 95H, Lymphocytes % (Manual) 1L, Monocytes % (Manual) 4, Eosinophils % (Manual) 0, Basophils % ( Manual) 0, Band Neutrophils 0, Platelet Estimate Adequate, Platelet Morphology Normal, Red Blood Cell Morphology Normal, Sodium Level 141, Potassium Level 4.2 , Chloride Level 101, Carbon Dioxide Level 29, Anion Gap 11, Blood Urea Nitrogen 21, Creatinine 0.8, Estimat Glomerular Filtration Rate > 60, Glucose Level 185H, Calcium Level 9.1 Height (Feet): 5 Height (Inches): 8.00 Weight (Pounds): 125 General Appearance: lethargic EENT: normal ENT inspection Neck: normal alignment Cardiovascular: normal peripheral pulses, normal rate, regular rhythm Respiratory/Chest: chest wall non-tender, lungs clear, normal breath sounds Abdomen: normal bowel sounds, non tender, soft Extremities: normal inspection Edema: no edema noted Arm (L), no edema noted Arm (R), no edema noted Leg (L), no edema noted Leg (R), no edema noted Pedal (L), no edema noted Pedal (R), no edema noted Generalized Neurologic: responsive, motor weakness Skin: normal pigmentation, warm/dry HERB SHANNON Jun 18, 2016 08:50
[2016-06-18] MEDS ORDERED: Influenza Virus Vaccine 0.5ml IM ONE (11:30)
[2016-06-18 12:00] VITALS: BP 109/84
[2016-06-18] MEDS ORDERED: NS 550ML IV ONE (12:53)
--- NOTE | 2016-06-18 15:22 | Pulmonology Progress Note ---
Assessment/Plan Problems: (1) Purulent bronchitis (2) Acute respiratory failure (3) Dementia (4) COPD (chronic obstructive pulmonary disease) Assessment/Plan increased wbc most likely secondary to steroids improving no sputum culture yet continue antibiotics decrease steroids check labs in am Subjective ROS Limited/Unobtainable: No Interval Events: no new complains Allergies: Coded Allergies: ASPIRIN (Verified Allergy, Unknown, 06/16/16) CELECOXIB (Verified Allergy, Unknown, 06/16/16) IBUPROFEN (Verified Allergy, Unknown, 06/16/16) Objective Last 24 Hour Vital Signs Date Time Temp Pulse Resp B/P Pulse Ox O2 Delivery O2 Flow Rate FiO2 06/18/16 12:00 98.4 80 18 109/84 95 Room Air 06/18/16 10:00 89 20 100 Nasal Cannula 2.0 06/18/16 09:50 88 20 95 Nasal Cannula 2.0 06/18/16 09:10 97.9 06/18/16 08:00 97.3 83 18 101/49 96 Nasal Cannula 2.0 06/18/16 07:38 Nasal Cannula 06/18/16 07:36 Nasal Cannula 2.0 06/18/16 07:36 Nasal Cannula 06/18/16 07:35 95 Nasal Cannula 2.0 06/18/16 04:00 97.9 98 20 122/64 98 Nasal Cannula 2.0 06/18/16 03:59 105 18 98 Nasal Cannula 2.0 28 06/18/16 03:49 104 18 97 Nasal Cannula 2.0 28 06/18/16 00:00 98.2 80 20 122/61 99 Nasal Cannula 2.0 06/17/16 23:57 104 18 97 Nasal Cannula 2.0 28 06/17/16 23:49 102 20 95 Nasal Cannula 2.0 28 06/17/16 20:27 96 Nasal Cannula 2.0 28 06/17/16 20:27 Nasal Cannula 2.0 28 06/17/16 20:25 92 24 92 Room Air 21 06/17/16 20:00 98.6 82 20 133/65 93 Nasal Cannula 2.0 06/17/16 16:06 99.0 100 21 116/66 94 Nasal Cannula 2.0 06/17/16 15:47 89 18 98 Nasal Cannula 28 06/17/16 15:37 84 18 98 Nasal Cannula 28 Intake and Output 06/17/16 06/18/16 19:00 07:00 Intake Total 75 ml 620 ml Balance 75 ml 620 ml Intake Oral 75 ml 620 ml # Voids 2 5 # Bowel Movements 2 General Appearance: WD/WN HEENT: normocephalic, atraumatic Respiratory/Chest: chest wall non-tender, lungs clear Cardiovascular: normal peripheral pulses Abdomen: normal bowel sounds Skin: no rash 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 Complete 06/16/16 13:45 Nasal Nares Influenza Types A,B Antigen (BEATRIZ) - Final Complete 06/16/16 16:00 Rectum VRE Culture - Final NO VANCOMYCIN RESISTANT ENTEROCOCCUS ... Complete Laboratory Tests 06/18/16 06:20: White Blood Count 13.6H, Red Blood Count 3.91L, Hemoglobin 11.7L, Hematocrit 36.1L, Mean Corpuscular Volume 92, Mean Corpuscular Hemoglobin 29.8, Mean Corpuscular Hemoglobin Concent 32.3, Red Cell Distribution Width 13.6, Platelet Count 235, Mean Platelet Volume 5.8L, Neutrophils (%) (Auto) , Lymphocytes (%) ( Auto) , Monocytes (%) (Auto) , Eosinophils (%) (Auto) , Basophils (%) (Auto) , Differential Total Cells Counted 100, Neutrophils % (Manual) 95H, Lymphocytes % (Manual) 1L, Monocytes % (Manual) 4, Eosinophils % (Manual) 0, Basophils % ( Manual) 0, Band Neutrophils 0, Platelet Estimate Adequate, Platelet Morphology Normal, Red Blood Cell Morphology Normal, Sodium Level 141, Potassium Level 4.2 , Chloride Level 101, Carbon Dioxide Level 29, Anion Gap 11, Blood Urea Nitrogen 21, Creatinine 0.8, Estimat Glomerular Filtration Rate > 60, Glucose Level 185H, Calcium Level 9.1 Current Medications Medications (Trade) Dose Ordered Sig/Toyin Route PRN Reason Start Time Stop Time Status Last Admin Dose Admin Albuterol/ Ipratropium 3 ml 3 ml EVERY 4 HOURS PRN HHN dyspnea 06/16/16 16:15 1/16/17 14:59 06/18/16 09:55 Dextrose (Dextrose 50%) STAT PRN IV Hypoglycemia 06/16/16 16:15 07/16/16 14:59 Heparin Sodium (Porcine) (Heparin 5000 units/ml) 5,000 units EVERY 12 HOURS SUBQ 06/16/16 21:00 07/16/16 20:59 06/18/16 08:43 Insulin Aspart (NovoLOG) BEFORE MEALS AND HS SUBQ 06/16/16 21:00 07/16/16 20:59 06/18/16 11:57 Levofloxacin (Levaquin) 100 ml @ 100 mls/hr Q24HRS IVPB 06/17/16 14:00 06/24/16 13:59 06/18/16 14:07 Lorazepam (Ativan 2mg/ml 1ml) 0.5 mg Q4H PRN IV For Anxiety 06/16/16 16:15 06/23/16 14:59 06/18/16 03:51 Memantine (Namenda) 5 mg TWICE A DAY ORAL 06/16/16 18:00 07/16/16 17:59 06/18/16 08:42 Methylprednisolone Sodium Succinate (Solu-MEDROL) 60 mg EVERY 6 HOURS IV 06/16/16 18:00 07/16/16 17:59 06/18/16 11:56 Morphine Sulfate (Morphine Sulfate) 2 mg EVERY 4 HOURS PRN IVP severe pain 7-10 06/16/16 16:15 06/23/16 14:59 06/18/16 08:42 Nitroglycerin (Ntg) 0.4 mg Q5M X 3 DOSES PRN SL Prn Chest Pain 06/16/16 16:15 07/16/16 14:59 Ondansetron HCl (Zofran) 4 mg Q6H PRN IVP Nausea & Vomiting 06/16/16 16:15 07/16/16 14:59 Promethazine HCl/ Codeine (Phenergan with Codeine) 5 ml EVERY 6 HOURS PRN ORAL cough 06/16/16 16:15 07/16/16 14:59 06/17/16 17:41 Temazepam (Restoril) 15 mg HSPRN PRN ORAL Insomnia 06/16/16 16:15 06/23/16 14:59 06/17/16 22:39 Theophylline (Norberto-Dur) 100 mg EVERY 12 HOURS ORAL 06/16/16 21:00 07/16/16 20:59 06/18/16 08:42 MATT JACKSON Jun 18, 2016 15:22
[2016-06-18 16:00] VITALS: BP 111/58
--- NOTE | 2016-06-18 18:32 | Infectious Diseases Prog Note ---
Assessment/Plan Problems: (1) Upper respiratory infection Assessment & Plan: influenza screening is negative , continue levofloxacin for now, her wbc went up due to steroids most likely , recommend to taper (2) Purulent bronchitis Assessment & Plan: await sputum culture , continue levofloxacin (3) Psychiatric disorder Assessment & Plan: continue psych meds, follow up with psych (4) Dementia Assessment & Plan: continue supportive care Subjective ROS Limited/Unobtainable: Yes Allergies: Coded Allergies: ASPIRIN (Verified Allergy, Unknown, 06/16/16) CELECOXIB (Verified Allergy, Unknown, 06/16/16) IBUPROFEN (Verified Allergy, Unknown, 06/16/16) Subjective she was resting in bed , nonverbal, doesn't follow commands. Objective Vital Signs Last 24 Hour Vital Signs Date Time Temp Pulse Resp B/P Pulse Ox O2 Delivery O2 Flow Rate FiO2 06/18/16 15:33 86 20 100 Nasal Cannula 2.0 06/18/16 15:22 79 20 97 Nasal Cannula 2.0 06/18/16 12:00 98.4 80 18 109/84 95 Room Air 06/18/16 10:00 89 20 100 Nasal Cannula 2.0 06/18/16 09:50 88 20 95 Nasal Cannula 2.0 06/18/16 09:10 97.9 06/18/16 08:00 97.3 83 18 101/49 96 Nasal Cannula 2.0 06/18/16 07:38 Nasal Cannula 06/18/16 07:36 Nasal Cannula 2.0 06/18/16 07:36 Nasal Cannula 06/18/16 07:35 95 Nasal Cannula 2.0 06/18/16 04:00 97.9 98 20 122/64 98 Nasal Cannula 2.0 06/18/16 03:59 105 18 98 Nasal Cannula 2.0 28 06/18/16 03:49 104 18 97 Nasal Cannula 2.0 28 06/18/16 00:00 98.2 80 20 122/61 99 Nasal Cannula 2.0 06/17/16 23:57 104 18 97 Nasal Cannula 2.0 28 06/17/16 23:49 102 20 95 Nasal Cannula 2.0 28 06/17/16 20:27 96 Nasal Cannula 2.0 28 06/17/16 20:27 Nasal Cannula 2.0 28 06/17/16 20:25 92 24 92 Room Air 21 06/17/16 20:00 98.6 82 20 133/65 93 Nasal Cannula 2.0 Height (Feet): 5 Height (Inches): 8.00 Weight (Pounds): 125 General Appearance: WD/WN, no acute distress HEENT: normocephalic, atraumatic, anicteric, mucous membranes moist Respiratory/Chest: chest wall non-tender, normal breath sounds, no respiratory distress, no accessory muscle use, decreased breath sounds, expiratory wheezing Cardiovascular: normal peripheral pulses, normal rate, regular rhythm, no gallop/murmur, no JVD Abdomen: normal bowel sounds, soft, non tender, no organomegaly, non distended , no mass, no scars Extremities: no cyanosis, no clubbing Skin: no rash, no lesions Microbiology Date/Time Source Procedure Growth Status 06/16/16 12:45 Blood Blood Culture - Preliminary NO GROWTH AFTER 24 HOURS Resulted 06/16/16 12:45 Blood Blood Culture - Preliminary NO GROWTH AFTER 24 HOURS Resulted 06/16/16 16:00 Nasal Nares MRSA Culture - Final NO METHICILLIN RESISTANT STAPH AUREUS... Complete 06/16/16 13:45 Nasal Nares Influenza Types A,B Antigen (BEATRIZ) - Final Complete 06/16/16 16:00 Rectum VRE Culture - Final NO VANCOMYCIN RESISTANT ENTEROCOCCUS ... Complete Laboratory Tests Test 06/18/16 06:20 White Blood Count 13.6 K/UL (4.8-10.8) H Red Blood Count 3.91 M/UL (4.20-5.40) L Hemoglobin 11.7 G/DL (12.0-16.0) L Hematocrit 36.1 % (37.0-47.0) L Mean Corpuscular Volume 92 FL (80-99) Mean Corpuscular Hemoglobin 29.8 PG (27.0-31.0) Mean Corpuscular Hemoglobin Concent 32.3 G/DL (32.0-36.0) Red Cell Distribution Width 13.6 % (11.6-14.8) Platelet Count 235 K/UL (150-450) Mean Platelet Volume 5.8 FL (6.5-10.1) L Neutrophils (%) (Auto) % (45.0-75.0) Lymphocytes (%) (Auto) % (20.0-45.0) Monocytes (%) (Auto) % (1.0-10.0) Eosinophils (%) (Auto) % (0.0-3.0) Basophils (%) (Auto) % (0.0-2.0) Differential Total Cells Counted 100 Neutrophils % (Manual) 95 % (45-75) H Lymphocytes % (Manual) 1 % (20-45) L Monocytes % (Manual) 4 % (1-10) Eosinophils % (Manual) 0 % (0-3) Basophils % (Manual) 0 % (0-2) Band Neutrophils 0 % (0-8) Platelet Estimate Adequate Platelet Morphology Normal Red Blood Cell Morphology Normal Sodium Level 141 mEQ/L (135-145) Potassium Level 4.2 mEQ/L (3.4-4.9) Chloride Level 101 mEQ/L (98-107) Carbon Dioxide Level 29 mEQ/L (20-30) Anion Gap 11 (5-15) Blood Urea Nitrogen 21 mg/dL (7-23) Creatinine 0.8 mg/dL (0.5-0.9) Estimat Glomerular Filtration Rate > 60 mL/min (>60) Glucose Level 185 mg/dL (74-106) H Calcium Level 9.1 mg/dL (8.6-10.2) Current Medications Medications (Trade) Dose Ordered Sig/Toyin Route PRN Reason Start Time Stop Time Status Last Admin Dose Admin Albuterol/ Ipratropium 3 ml 3 ml EVERY 4 HOURS PRN HHN dyspnea 06/16/16 16:15 06/21/16 14:59 06/18/16 15:39 Dextrose (Dextrose 50%) STAT PRN IV Hypoglycemia 06/16/16 16:15 07/16/16 14:59 Heparin Sodium (Porcine) (Heparin 5000 units/ml) 5,000 units EVERY 12 HOURS SUBQ 06/16/16 21:00 07/16/16 20:59 06/18/16 08:43 Insulin Aspart (NovoLOG) BEFORE MEALS AND HS SUBQ 06/16/16 21:00 07/16/16 20:59 06/18/16 16:34 Levofloxacin (Levaquin) 100 ml @ 100 mls/hr Q24HRS IVPB 06/17/16 14:00 06/24/16 13:59 06/18/16 14:07 Lorazepam (Ativan 2mg/ml 1ml) 0.5 mg Q4H PRN IV For Anxiety 06/16/16 16:15 06/23/16 14:59 06/18/16 18:18 Memantine (Namenda) 5 mg TWICE A DAY ORAL 06/16/16 18:00 07/16/16 17:59 06/18/16 17:35 Methylprednisolone Sodium Succinate (Solu-MEDROL) 60 mg EVERY 12 HOURS IV 06/18/16 21:00 07/18/16 20:59 Morphine Sulfate (Morphine Sulfate) 2 mg EVERY 4 HOURS PRN IVP severe pain 7-10 06/16/16 16:15 06/23/16 14:59 06/18/16 16:33 Nitroglycerin (Ntg) 0.4 mg Q5M X 3 DOSES PRN SL Prn Chest Pain 06/16/16 16:15 07/16/16 14:59 Ondansetron HCl (Zofran) 4 mg Q6H PRN IVP Nausea & Vomiting 06/16/16 16:15 07/16/16 14:59 Promethazine HCl/ Codeine (Phenergan with Codeine) 5 ml EVERY 6 HOURS PRN ORAL cough 06/16/16 16:15 07/16/16 14:59 06/17/16 17:41 Temazepam (Restoril) 15 mg HSPRN PRN ORAL Insomnia 06/16/16 16:15 06/23/16 14:59 06/17/16 22:39 Theophylline (Norberto-Dur) 100 mg EVERY 12 HOURS ORAL 06/16/16 21:00 07/16/16 20:59 06/18/16 08:42 Ava Harvey M.D. Jun 18, 2016 18:32
[2016-06-18 19:00] VITALS: BP 118/62
--- NOTE | 2016-06-18 20:07 | Consultation ---
DATE OF CONSULTATION: 06/17/2016 NOTE: POOR AUDIO PSYCHOTHERAPY CONSULTATION PROGRESS NOTE CONSULTING PHYSICIAN: Maycol Allred M.D. TREATING ATTENDING PHYSICIAN: Antonio Alston D.O. HISTORY OF PRESENT ILLNESS: The patient is a 66-year-old female. The patient with pneumonia. She was noted in the past tired and fatigue, altered mental status, . The patient poor tangential . The patient has poor insight and judgment and poor impulse control. The patient indication of suicidal or homicidal thoughts of ideation auditory or visual hallucinations . The patient requires further hospitalization for acute confusion and . PAST MEDICAL HISTORY: and history of sepsis and generalized weakness. ALLERGIES: The patient has no known drug allergies. SUBSTANCE ABUSE HISTORY: The patient denies history of alcohol use, illicit substance use, or smoking cigarettes. PSYCHIATRIC HISTORY: The patient has a history of dementia, depression, and anxiety . SOCIAL HISTORY: The patient is a 66-year-old female. The patient lives independently. Financially sustained through Medicare. MENTAL STATUS EXAMINATION: The patient is alert and oriented x2. The patient's insight and judgment is . Affect is blunted. Thought process is . The patient has poor attention and concentration. Poor insight, judgment, and impulse control. DIAGNOSES: AXIS I Rule out behavior disturbances, rule out . AXIS II Deferred. AXIS III Per History and Physical. AXIS IV poor concentration involvement. AXIS V . PLAN: This clinician assessed the patient. The patient requires hospitalization . The patient . Encouraging the patient to participate in the treatment as well as with medication regimen. Continue with medication management and behavioral management. This clinician has reviewed the patient's chart and discussed the treatment with nursing staff. Maycol Allred PsyD. DR: Jada JOB#: [id number] CC:
[2016-06-19] VITALS: BP 121/66
--- NOTE | 2016-06-19 02:57 | Progress Note ---
DATE: 06/18/2016 PSYCHOTHERAPY CONSULTATION PROGRESS NOTE CONSULTING PHYSICIAN: Maycol Allred M.D. TREATING ATTENDING: Antonio Alston D.O. SUBJECTIVE: The patient is a 66-year-old female, confused, disorganized, and altered mental status. The patient remains anxious, irritable, and forgetful. There is no viable plan for her self-care and safety and at this time requires continued hospitalization for stabilization of symptoms. PLAN: This clinician assessed this patient. Provided the patient with supportive psychotherapy, reality orientation, and coping skills. Encouraging the patient to participate in treatment as well as with medication management. Right now the patient has increased anxiety . Continue with the medication management and behavioral management. This clinician has reviewed the patient's chart and discussed the treatment with nursing staff. Maycol Allred PsyD. DR: SUSIE JOB#: [id number] CC:
[2016-06-19] MEDS: LORazepam Inj 2mg/ml 1ml IV PRN ×3 (03:41→21:07)
[2016-06-19 04:00] VITALS: BP 115/66
[2016-06-19] MEDS: Morphine Sulfate 2mg/ml Inj IVP PRN ×2 (06:09→14:54)
[2016-06-19] MEDS: NovoLOG Insulin Flexpen SUBQ SCH ×4 (06:20→21:00)
[2016-06-19 07:17] LABS: MEAN CORPUSCULAR HEMOGLOBIN 29.6 PG (27.0-31.0); MEAN CORPUSCULAR HGB CONC 32.1 G/DL (32.0-36.0); MEAN CORPUSCULAR VOLUME 92 FL (80-99); MEAN PLATELET VOLUME 5.5 FL (6.5-10.1); PLATELET COUNT 272 K/UL (150-450); RED BLOOD COUNT 4.05 M/UL (4.20-5.40); RED CELL DISTRIBUTION WIDTH 13.7 % (11.6-14.8); WHITE BLOOD COUNT 15.9 K/UL (4.8-10.8)
[2016-06-19 07:23] LABS: ANION GAP 14 (5-15); CALCIUM 9.1 mg/dL (8.6-10.2); CARBON DIOXIDE 28 mEQ/L (20-30); CHLORIDE 101 mEQ/L (98-107); CREATININE 0.8 mg/dL (0.5-0.9); GLOMERULAR FILTRATION RATE > 60 mL/min (>60); HEMOLYSIS 4; POTASSIUM 4.1 mEQ/L (3.4-4.9); SODIUM 143 mEQ/L (135-145)
[2016-06-19] MEDS: DuoNeb 0.5-3(2.5)mg/3ml neb HHN PRN ×3 (07:54→19:22)
[2016-06-19 08:00] VITALS: BP 113/65
[2016-06-19] MEDS: Memantine 5 MG TAB ORAL SCH ×2 (08:51→18:14)
[2016-06-19] MEDS: Solu-MEDROL 125mg Inj IV SCH (08:51)
[2016-06-19] MEDS: Heparin 5000 units/ml inj SUBQ SCH ×2 (08:56→20:56)
[2016-06-19] MEDS: Theophylline ER 100mg ORAL SCH ×2 (10:49→20:57)
[2016-06-19 10:58] LABS: BAND NEUTROPHILS % (MANUAL) 0 % (0-8); BASOPHILS % (MANUAL) 0 % (0-2); EOSINOPHILS % (MANUAL) 0 % (0-3); LYMPHOCYTES % (MANUAL) 6 % (20-45); NEUTROPHILS % (MANUAL) 87 % (45-75); PLATELET ESTIMATE ADEQUATE; PLATELET MORPHOLOGY NORMAL; TOTAL CELLS COUNTED 100
--- NOTE | 2016-06-19 11:03 | Pulmonology Progress Note ---
Assessment/Plan Problems: (1) Purulent bronchitis (2) Acute respiratory failure (3) Dementia (4) COPD (chronic obstructive pulmonary disease) Assessment/Plan increased wbc most likely secondary to steroids improving no sputum culture yet continue antibiotics decrease steroids to qd check labs in am BC negative no sputum yet Subjective ROS Limited/Unobtainable: No Interval Events: still coughing, episodes of dyspnea Constitutional: Reports: no symptoms HEENT: Repors: no symptoms Allergies: Coded Allergies: ASPIRIN (Verified Allergy, Unknown, 06/16/16) CELECOXIB (Verified Allergy, Unknown, 06/16/16) IBUPROFEN (Verified Allergy, Unknown, 06/16/16) Objective Last 24 Hour Vital Signs Date Time Temp Pulse Resp B/P Pulse Ox O2 Delivery O2 Flow Rate FiO2 06/19/16 08:00 97.4 83 18 113/65 95 Room Air 06/19/16 07:46 75 18 100 Nasal Cannula 2.0 06/19/16 07:38 Nasal Cannula 2.0 06/19/16 07:37 95 Nasal Cannula 2.0 06/19/16 07:35 89 18 95 Nasal Cannula 2.0 06/19/16 06:40 97.1 06/19/16 04:00 97.0 88 19 115/66 96 Nasal Cannula 3.0 06/19/16 00:00 97.1 90 19 121/66 96 Nasal Cannula 3.0 06/18/16 22:35 88 20 100 Nasal Cannula 3.0 06/18/16 22:30 91 20 97 Nasal Cannula 3.0 06/18/16 19:45 85 20 100 Nasal Cannula 3.0 06/18/16 19:39 Nasal Cannula 3.0 32 06/18/16 19:39 82 20 97 Nasal Cannula 3.0 06/18/16 19:39 98 Nasal Cannula 3.0 32 06/18/16 19:00 97.9 94 20 118/62 97 Room Air 06/18/16 16:00 98.2 92 18 111/58 94 Room Air 06/18/16 15:33 86 20 100 Nasal Cannula 2.0 06/18/16 15:22 79 20 97 Nasal Cannula 2.0 06/18/16 12:00 98.4 80 18 109/84 95 Room Air Intake and Output 06/18/16 06/19/16 19:00 07:00 Intake Total 780 ml 360 ml Balance 780 ml 360 ml Intake Oral 780 ml 360 ml # Voids 5 3 General Appearance: WD/WN HEENT: normocephalic, atraumatic Respiratory/Chest: chest wall non-tender, normal breath sounds Cardiovascular: normal peripheral pulses, normal rate Abdomen: normal bowel sounds, no organomegaly Extremities: no cyanosis Skin: no rash Microbiology Date/Time Source Procedure Growth Status 06/16/16 12:45 Blood Blood Culture - Preliminary NO GROWTH AFTER 48 HOURS Resulted 06/16/16 12:45 Blood Blood Culture - Preliminary NO GROWTH AFTER 48 HOURS Resulted 06/16/16 16:00 Nasal Nares MRSA Culture - Final NO METHICILLIN RESISTANT STAPH AUREUS... Complete 06/16/16 13:45 Nasal Nares Influenza Types A,B Antigen (BEATRIZ) - Final Complete 06/16/16 16:00 Rectum VRE Culture - Final NO VANCOMYCIN RESISTANT ENTEROCOCCUS ... Complete Laboratory Tests 06/19/16 05:35: White Blood Count 15.9H, Red Blood Count 4.05L, Hemoglobin 12.0, Hematocrit 37.4 , Mean Corpuscular Volume 92, Mean Corpuscular Hemoglobin 29.6, Mean Corpuscular Hemoglobin Concent 32.1, Red Cell Distribution Width 13.7, Platelet Count 272, Mean Platelet Volume 5.5L, Neutrophils (%) (Auto) , Lymphocytes (%) ( Auto) , Monocytes (%) (Auto) , Eosinophils (%) (Auto) , Basophils (%) (Auto) , Differential Total Cells Counted 100, Neutrophils % (Manual) 87H, Lymphocytes % (Manual) 6L, Monocytes % (Manual) 7, Eosinophils % (Manual) 0, Basophils % ( Manual) 0, Band Neutrophils 0, Platelet Estimate Adequate, Platelet Morphology Normal, Red Blood Cell Morphology Normal, Sodium Level 143, Potassium Level 4.1 , Chloride Level 101, Carbon Dioxide Level 28, Anion Gap 14, Blood Urea Nitrogen 26H, Creatinine 0.8, Estimat Glomerular Filtration Rate > 60, Glucose Level 137H, Calcium Level 9.1 Current Medications Medications (Trade) Dose Ordered Sig/Toyin Route PRN Reason Start Time Stop Time Status Last Admin Dose Admin Albuterol/ Ipratropium 3 ml 3 ml EVERY 4 HOURS PRN HHN dyspnea 06/16/16 16:15 06/21/16 14:59 06/19/16 07:54 Dextrose (Dextrose 50%) STAT PRN IV Hypoglycemia 06/16/16 16:15 07/16/16 14:59 Heparin Sodium (Porcine) (Heparin 5000 units/ml) 5,000 units EVERY 12 HOURS SUBQ 06/16/16 21:00 07/16/16 20:59 06/19/16 08:56 Insulin Aspart (NovoLOG) BEFORE MEALS AND HS SUBQ 06/16/16 21:00 07/16/16 20:59 06/19/16 06:20 Levofloxacin (Levaquin) 100 ml @ 100 mls/hr Q24HRS IVPB 06/17/16 14:00 06/24/16 13:59 06/18/16 14:07 Lorazepam (Ativan 2mg/ml 1ml) 0.5 mg Q4H PRN IV For Anxiety 06/16/16 16:15 06/23/16 14:59 06/19/16 03:41 Memantine (Namenda) 5 mg TWICE A DAY ORAL 06/16/16 18:00 07/16/16 17:59 06/19/16 08:51 Methylprednisolone Sodium Succinate (Solu-MEDROL) 60 mg EVERY 12 HOURS IV 06/18/16 21:00 07/18/16 20:59 06/19/16 08:51 Morphine Sulfate (Morphine Sulfate) 2 mg EVERY 4 HOURS PRN IVP severe pain 7-10 06/16/16 16:15 06/23/16 14:59 06/19/16 06:09 Nitroglycerin (Ntg) 0.4 mg Q5M X 3 DOSES PRN SL Prn Chest Pain 06/16/16 16:15 07/16/16 14:59 Ondansetron HCl (Zofran) 4 mg Q6H PRN IVP Nausea & Vomiting 06/16/16 16:15 07/16/16 14:59 Promethazine HCl/ Codeine (Phenergan with Codeine) 5 ml EVERY 6 HOURS PRN ORAL cough 06/16/16 16:15 07/16/16 14:59 06/17/16 17:41 Temazepam (Restoril) 15 mg HSPRN PRN ORAL Insomnia 06/16/16 16:15 06/23/16 14:59 06/19/16 00:48 Theophylline (Norberto-Dur) 100 mg EVERY 12 HOURS ORAL 06/16/16 21:00 07/16/16 20:59 06/19/16 10:49 MATT JACKSON Jun 19, 2016 11:03
[2016-06-19 11:59] VITALS: BP 124/56
--- NOTE | 2016-06-19 13:34 | General Progress Note ---
Assessment/Plan Problem List: (1) Dementia ICD Codes: F03.90 - Unspecified dementia without behavioral disturbance SNOMED: 03515434 (2) Acute respiratory failure ICD Codes: J96.00 - Acute respiratory failure, unspecified whether with hypoxia or hypercapnia SNOMED: 66085355 (3) Pneumonia ICD Codes: J18.9 - Pneumonia, unspecified organism SNOMED: 011651819 (4) Sepsis ICD Codes: A41.9 - Sepsis, unspecified organism SNOMED: 93673626 Status: progressing Assessment/Plan afebrile vitals stable no wheezing reviewed chart and labs Subjective ROS Limited/Unobtainable: Yes Allergies: Coded Allergies: ASPIRIN (Verified Allergy, Unknown, 06/16/16) CELECOXIB (Verified Allergy, Unknown, 06/16/16) IBUPROFEN (Verified Allergy, Unknown, 06/16/16) Objective Last 24 Hour Vital Signs Date Time Temp Pulse Resp B/P Pulse Ox O2 Delivery O2 Flow Rate FiO2 06/19/16 11:59 98.2 78 20 124/56 94 Room Air 06/19/16 11:40 82 20 100 Nasal Cannula 2.0 06/19/16 11:30 80 20 95 Nasal Cannula 2.0 06/19/16 08:00 97.4 83 18 113/65 95 Room Air 06/19/16 07:46 75 18 100 Nasal Cannula 2.0 06/19/16 07:38 Nasal Cannula 2.0 06/19/16 07:37 95 Nasal Cannula 2.0 06/19/16 07:35 89 18 95 Nasal Cannula 2.0 06/19/16 06:40 97.1 06/19/16 04:00 97.0 88 19 115/66 96 Nasal Cannula 3.0 06/19/16 00:00 97.1 90 19 121/66 96 Nasal Cannula 3.0 06/18/16 22:35 88 20 100 Nasal Cannula 3.0 06/18/16 22:30 91 20 97 Nasal Cannula 3.0 06/18/16 19:45 85 20 100 Nasal Cannula 3.0 06/18/16 19:39 Nasal Cannula 3.0 32 06/18/16 19:39 82 20 97 Nasal Cannula 3.0 06/18/16 19:39 98 Nasal Cannula 3.0 32 06/18/16 19:00 97.9 94 20 118/62 97 Room Air 06/18/16 16:00 98.2 92 18 111/58 94 Room Air 06/18/16 15:33 86 20 100 Nasal Cannula 2.0 06/18/16 15:22 79 20 97 Nasal Cannula 2.0 Intake and Output 06/18/16 06/19/16 19:00 07:00 Intake Total 780 ml 360 ml Balance 780 ml 360 ml Intake Oral 780 ml 360 ml # Voids 5 3 Laboratory Tests 06/19/16 05:35: White Blood Count 15.9H, Red Blood Count 4.05L, Hemoglobin 12.0, Hematocrit 37.4 , Mean Corpuscular Volume 92, Mean Corpuscular Hemoglobin 29.6, Mean Corpuscular Hemoglobin Concent 32.1, Red Cell Distribution Width 13.7, Platelet Count 272, Mean Platelet Volume 5.5L, Neutrophils (%) (Auto) , Lymphocytes (%) ( Auto) , Monocytes (%) (Auto) , Eosinophils (%) (Auto) , Basophils (%) (Auto) , Differential Total Cells Counted 100, Neutrophils % (Manual) 87H, Lymphocytes % (Manual) 6L, Monocytes % (Manual) 7, Eosinophils % (Manual) 0, Basophils % ( Manual) 0, Band Neutrophils 0, Platelet Estimate Adequate, Platelet Morphology Normal, Red Blood Cell Morphology Normal, Sodium Level 143, Potassium Level 4.1 , Chloride Level 101, Carbon Dioxide Level 28, Anion Gap 14, Blood Urea Nitrogen 26H, Creatinine 0.8, Estimat Glomerular Filtration Rate > 60, Glucose Level 137H, Calcium Level 9.1 Height (Feet): 5 Height (Inches): 8.00 Weight (Pounds): 125 EENT: PERRL/EOMI Neck: supple Cardiovascular: normal rate Respiratory/Chest: lungs clear Alessandro Johnson MD Jun 19, 2016 13:34
--- NOTE | 2016-06-19 14:54 | Infectious Diseases Prog Note ---
Assessment/Plan Problems: (1) Upper respiratory infection Assessment & Plan: influenza screening is negative , continue levofloxacin for now, her wbc went up due to steroids most likely , recommend to taper (2) Purulent bronchitis Assessment & Plan: await sputum culture , continue levofloxacin for 5-7 days (3) Psychiatric disorder Assessment & Plan: continue psych meds, follow up with psych (4) Dementia Assessment & Plan: continue supportive care Subjective Constitutional: Reports: fatigue HEENT: Reports: congestion Respiratory: Reports: dry cough Allergies: Coded Allergies: ASPIRIN (Verified Allergy, Unknown, 06/16/16) CELECOXIB (Verified Allergy, Unknown, 06/16/16) IBUPROFEN (Verified Allergy, Unknown, 06/16/16) All Systems: reviewed and negative except above Subjective she was resting in bed , talking about her infections, still congested .denied any fever or chills. Objective Vital Signs Last 24 Hour Vital Signs Date Time Temp Pulse Resp B/P Pulse Ox O2 Delivery O2 Flow Rate FiO2 06/19/16 11:59 98.2 78 20 124/56 94 Room Air 06/19/16 11:40 82 20 100 Nasal Cannula 2.0 06/19/16 11:30 80 20 95 Nasal Cannula 2.0 06/19/16 08:00 97.4 83 18 113/65 95 Room Air 06/19/16 07:46 75 18 100 Nasal Cannula 2.0 06/19/16 07:38 Nasal Cannula 2.0 06/19/16 07:37 95 Nasal Cannula 2.0 06/19/16 07:35 89 18 95 Nasal Cannula 2.0 06/19/16 06:40 97.1 06/19/16 04:00 97.0 88 19 115/66 96 Nasal Cannula 3.0 06/19/16 00:00 97.1 90 19 121/66 96 Nasal Cannula 3.0 06/18/16 22:35 88 20 100 Nasal Cannula 3.0 06/18/16 22:30 91 20 97 Nasal Cannula 3.0 06/18/16 19:45 85 20 100 Nasal Cannula 3.0 06/18/16 19:39 Nasal Cannula 3.0 32 06/18/16 19:39 82 20 97 Nasal Cannula 3.0 06/18/16 19:39 98 Nasal Cannula 3.0 32 06/18/16 19:00 97.9 94 20 118/62 97 Room Air 06/18/16 16:00 98.2 92 18 111/58 94 Room Air 06/18/16 15:33 86 20 100 Nasal Cannula 2.0 06/18/16 15:22 79 20 97 Nasal Cannula 2.0 Height (Feet): 5 Height (Inches): 8.00 Weight (Pounds): 125 General Appearance: WD/WN, no acute distress HEENT: normocephalic, atraumatic, anicteric, mucous membranes moist Respiratory/Chest: chest wall non-tender, normal breath sounds, no respiratory distress, no accessory muscle use, decreased breath sounds, expiratory wheezing Cardiovascular: normal peripheral pulses, normal rate, regular rhythm, no gallop/murmur, no JVD Abdomen: normal bowel sounds, soft, non tender, no organomegaly, non distended , no mass, no scars Extremities: no cyanosis, no clubbing Skin: no rash, no lesions, no ulcers Microbiology Date/Time Source Procedure Growth Status 06/16/16 16:00 Nasal Nares MRSA Culture - Final NO METHICILLIN RESISTANT STAPH AUREUS... Complete 06/16/16 16:00 Rectum VRE Culture - Final NO VANCOMYCIN RESISTANT ENTEROCOCCUS ... Complete Laboratory Tests Test 06/19/16 05:35 White Blood Count 15.9 K/UL (4.8-10.8) H Red Blood Count 4.05 M/UL (4.20-5.40) L Hemoglobin 12.0 G/DL (12.0-16.0) Hematocrit 37.4 % (37.0-47.0) Mean Corpuscular Volume 92 FL (80-99) Mean Corpuscular Hemoglobin 29.6 PG (27.0-31.0) Mean Corpuscular Hemoglobin Concent 32.1 G/DL (32.0-36.0) Red Cell Distribution Width 13.7 % (11.6-14.8) Platelet Count 272 K/UL (150-450) Mean Platelet Volume 5.5 FL (6.5-10.1) L Neutrophils (%) (Auto) % (45.0-75.0) Lymphocytes (%) (Auto) % (20.0-45.0) Monocytes (%) (Auto) % (1.0-10.0) Eosinophils (%) (Auto) % (0.0-3.0) Basophils (%) (Auto) % (0.0-2.0) Differential Total Cells Counted 100 Neutrophils % (Manual) 87 % (45-75) H Lymphocytes % (Manual) 6 % (20-45) L Monocytes % (Manual) 7 % (1-10) Eosinophils % (Manual) 0 % (0-3) Basophils % (Manual) 0 % (0-2) Band Neutrophils 0 % (0-8) Platelet Estimate Adequate Platelet Morphology Normal Red Blood Cell Morphology Normal Sodium Level 143 mEQ/L (135-145) Potassium Level 4.1 mEQ/L (3.4-4.9) Chloride Level 101 mEQ/L (98-107) Carbon Dioxide Level 28 mEQ/L (20-30) Anion Gap 14 (5-15) Blood Urea Nitrogen 26 mg/dL (7-23) H Creatinine 0.8 mg/dL (0.5-0.9) Estimat Glomerular Filtration Rate > 60 mL/min (>60) Glucose Level 137 mg/dL (74-106) H Calcium Level 9.1 mg/dL (8.6-10.2) Current Medications Medications (Trade) Dose Ordered Sig/Toyin Route PRN Reason Start Time Stop Time Status Last Admin Dose Admin Albuterol/ Ipratropium 3 ml 3 ml EVERY 4 HOURS PRN HHN dyspnea 06/16/16 16:15 06/21/16 14:59 06/19/16 12:09 Dextrose (Dextrose 50%) STAT PRN IV Hypoglycemia 06/16/16 16:15 07/16/16 14:59 Heparin Sodium (Porcine) (Heparin 5000 units/ml) 5,000 units EVERY 12 HOURS SUBQ 06/16/16 21:00 07/16/16 20:59 06/19/16 08:56 Insulin Aspart (NovoLOG) BEFORE MEALS AND HS SUBQ 06/16/16 21:00 07/16/16 20:59 06/19/16 06:20 Levofloxacin (Levaquin) 100 ml @ 100 mls/hr Q24HRS IVPB 06/17/16 14:00 06/24/16 13:59 06/19/16 13:44 Lorazepam (Ativan 2mg/ml 1ml) 0.5 mg Q4H PRN IV For Anxiety 06/16/16 16:15 06/23/16 14:59 06/19/16 03:41 Memantine (Namenda) 5 mg TWICE A DAY ORAL 06/16/16 18:00 07/16/16 17:59 06/19/16 08:51 Methylprednisolone Sodium Succinate (Solu-MEDROL) 60 mg DAILY IV 06/20/16 09:00 07/20/16 08:59 Morphine Sulfate (Morphine Sulfate) 2 mg EVERY 4 HOURS PRN IVP severe pain 7-10 06/16/16 16:15 06/23/16 14:59 06/19/16 06:09 Nitroglycerin (Ntg) 0.4 mg Q5M X 3 DOSES PRN SL Prn Chest Pain 06/16/16 16:15 07/16/16 14:59 Ondansetron HCl (Zofran) 4 mg Q6H PRN IVP Nausea & Vomiting 06/16/16 16:15 07/16/16 14:59 Promethazine HCl/ Codeine (Phenergan with Codeine) 5 ml EVERY 6 HOURS PRN ORAL cough 06/16/16 16:15 07/16/16 14:59 06/17/16 17:41 Temazepam (Restoril) 15 mg HSPRN PRN ORAL Insomnia 06/16/16 16:15 06/23/16 14:59 06/19/16 00:48 Theophylline (Norberto-Dur) 100 mg EVERY 12 HOURS ORAL 06/16/16 21:00 07/16/16 20:59 06/19/16 10:49 Ava Harvey M.D. Jun 19, 2016 14:54
[2016-06-19 16:00] VITALS: BP 136/75
[2016-06-19 20:00] VITALS: BP 138/78
[2016-06-20] VITALS: BP 104/63
[2016-06-20 04:00] VITALS: BP 112/79
[2016-06-20] MEDS: Morphine Sulfate 2mg/ml Inj IVP PRN ×3 (05:44→20:40)
[2016-06-20] MEDS: NovoLOG Insulin Flexpen SUBQ SCH ×4 (06:30→20:38)
[2016-06-20] MEDS: DuoNeb 0.5-3(2.5)mg/3ml neb HHN PRN ×3 (06:46→17:39)
[2016-06-20 07:46] LABS: BASOPHILS % (AUTO) 0.4 % (0.0-2.0); EOSINOPHILS % (AUTO) 0.2 % (0.0-3.0); LYMPHOCYTES % (AUTO) 16.2 % (20.0-45.0); MEAN CORPUSCULAR HEMOGLOBIN 30.2 PG (27.0-31.0); MEAN CORPUSCULAR HGB CONC 32.3 G/DL (32.0-36.0); MEAN CORPUSCULAR VOLUME 93 FL (80-99); MEAN PLATELET VOLUME 5.6 FL (6.5-10.1); MONOCYTES % (AUTO) 10.6 % (1.0-10.0); NEUTROPHILS % (AUTO) 72.6 % (45.0-75.0); PLATELET COUNT 245 K/UL (150-450); RED BLOOD COUNT 4.21 M/UL (4.20-5.40); RED CELL DISTRIBUTION WIDTH 13.8 % (11.6-14.8); WHITE BLOOD COUNT 12.6 K/UL (4.8-10.8)
[2016-06-20 07:53] LABS: ALANINE AMINOTRANSFERASE 13 U/L (3-33); ALBUMIN/GLOBULIN RATIO 1.5 (1.0-2.7); ANION GAP 13 (5-15); ASPARTATE AMINO TRANSFERASE 13 U/L (5-40); CARBON DIOXIDE 29 mEQ/L (20-30); CHLORIDE 101 mEQ/L (98-107); CREATININE 0.8 mg/dL (0.5-0.9); GLOMERULAR FILTRATION RATE > 60 mL/min (>60); HEMOLYSIS 5; MAGNESIUM 2.1 mg/dL (1.7-2.5); PHOSPHORUS 2.7 mg/dL (2.5-4.8); POTASSIUM 3.6 mEQ/L (3.4-4.9); SODIUM 143 mEQ/L (135-145)
[2016-06-20 08:00] VITALS: BP 118/55
[2016-06-20] MEDS: Solu-MEDROL 125mg Inj IV SCH (09:39)
[2016-06-20] MEDS: Theophylline ER 100mg ORAL SCH ×2 (09:39→20:36)
[2016-06-20] MEDS: Memantine 5 MG TAB ORAL SCH ×2 (09:39→18:04)
[2016-06-20] MEDS: Heparin 5000 units/ml inj SUBQ SCH ×2 (09:41→20:39)
[2016-06-20 12:00] VITALS: BP 136/75
--- NOTE | 2016-06-20 13:14 | General Progress Note ---
Assessment/Plan Problem List: (1) Dementia ICD Codes: F03.90 - Unspecified dementia without behavioral disturbance SNOMED: 21474819 (2) Acute respiratory failure ICD Codes: J96.00 - Acute respiratory failure, unspecified whether with hypoxia or hypercapnia SNOMED: 13128765 (3) Pneumonia ICD Codes: J18.9 - Pneumonia, unspecified organism SNOMED: 124507187 (4) Sepsis ICD Codes: A41.9 - Sepsis, unspecified organism SNOMED: 12432602 Status: progressing Assessment/Plan pna resp insuff afebrile vitals stable Subjective ROS Limited/Unobtainable: Yes Allergies: Coded Allergies: ASPIRIN (Verified Allergy, Unknown, 06/16/16) CELECOXIB (Verified Allergy, Unknown, 06/16/16) IBUPROFEN (Verified Allergy, Unknown, 06/16/16) Objective Last 24 Hour Vital Signs Date Time Temp Pulse Resp B/P Pulse Ox O2 Delivery O2 Flow Rate FiO2 06/20/16 10:26 90 18 97 Nasal Cannula 2.0 28 06/20/16 10:19 28 06/20/16 10:18 93 19 94 Nasal Cannula 2.0 28 06/20/16 08:00 97.8 76 18 118/55 92 Room Air 06/20/16 06:59 80 16 98 Nasal Cannula 2.0 28 06/20/16 06:52 87 18 Nasal Cannula 2.0 28 06/20/16 06:51 28 06/20/16 06:50 87 18 96 Nasal Cannula 2.0 28 06/20/16 06:49 Nasal Cannula 2.0 28 06/20/16 06:49 96 Nasal Cannula 2.0 28 06/20/16 04:00 98.2 83 21 112/79 92 Room Air 06/20/16 02:50 Nasal Cannula 06/20/16 02:50 Nasal Cannula 06/20/16 00:09 Nasal Cannula 06/20/16 00:09 Nasal Cannula 06/20/16 00:00 97.2 60 19 104/63 91 Nasal Cannula 2.0 06/19/16 20:00 98.0 85 18 138/78 95 Nasal Cannula 2.0 06/19/16 19:30 72 20 100 Nasal Cannula 2.0 28 06/19/16 19:22 97 Nasal Cannula 2.0 28 06/19/16 19:22 72 20 97 Nasal Cannula 2.0 28 06/19/16 19:22 Nasal Cannula 2.0 28 06/19/16 16:00 98.2 79 18 136/75 97 Nasal Cannula 2.0 06/19/16 15:57 Nasal Cannula 06/19/16 15:55 Nasal Cannula 06/19/16 15:24 98.2 Intake and Output 06/19/16 06/20/16 19:00 07:00 Intake Total 420 ml 300 ml Output Total 100 ml Balance 420 ml 200 ml Intake Oral 420 ml 300 ml Output Urine Total 100 ml # Voids 2 5 Laboratory Tests 06/20/16 05:25: White Blood Count 12.6H, Red Blood Count 4.21, Hemoglobin 12.7, Hematocrit 39.3 , Mean Corpuscular Volume 93, Mean Corpuscular Hemoglobin 30.2, Mean Corpuscular Hemoglobin Concent 32.3, Red Cell Distribution Width 13.8, Platelet Count 245, Mean Platelet Volume 5.6L, Neutrophils (%) (Auto) 72.6, Lymphocytes ( %) (Auto) 16.2L, Monocytes (%) (Auto) 10.6H, Eosinophils (%) (Auto) 0.2, Basophils (%) (Auto) 0.4, Sodium Level 143, Potassium Level 3.6, Chloride Level 101, Carbon Dioxide Level 29, Anion Gap 13, Blood Urea Nitrogen 22, Creatinine 0.8, Estimat Glomerular Filtration Rate > 60, Glucose Level 73L, Calcium Level 9.0, Phosphorus Level 2.7, Magnesium Level 2.1, Total Bilirubin < 0.2, Aspartate Amino Transf (AST/SGOT) 13, Alanine Aminotransferase (ALT/SGPT) 13, Alkaline Phosphatase 67, Total Protein 6.0L, Albumin 3.6, Globulin 2.4, Albumin/ Globulin Ratio 1.5 Height (Feet): 5 Height (Inches): 8.00 Weight (Pounds): 125 EENT: PERRL/EOMI Neck: supple Cardiovascular: normal rate Respiratory/Chest: lungs clear Abdomen: soft Alessandro Johnson MD Jun 20, 2016 13:14
--- NOTE | 2016-06-20 15:55 | Infectious Diseases Prog Note ---
Assessment/Plan Problems: (1) Upper respiratory infection Assessment & Plan: influenza screening is negative , continue levofloxacin for now, her wbc went up due to steroids most likely , recommend to taper (2) Purulent bronchitis Assessment & Plan: await sputum culture , continue levofloxacin for 5-7 days (3) Psychiatric disorder Assessment & Plan: continue psych meds, follow up with psych (4) Dementia Assessment & Plan: continue supportive care Subjective Constitutional: Reports: fatigue HEENT: Reports: congestion Respiratory: Reports: no symptoms Cardiovascular: Reports: no symptoms Gastrointestinal/Abdominal: Reports: no symptoms Genitourinary: Reports: no symptoms Neurologic: Reports: no symptoms Psychiatric: Reports: no symptoms Skin: Reports: no symptoms Endocrine: Reports: no symptoms Allergies: Coded Allergies: ASPIRIN (Verified Allergy, Unknown, 06/16/16) CELECOXIB (Verified Allergy, Unknown, 06/16/16) IBUPROFEN (Verified Allergy, Unknown, 06/16/16) Subjective she was resting in bed , still congested .had dry cough, no fever or chills. Objective Vital Signs Last 24 Hour Vital Signs Date Time Temp Pulse Resp B/P Pulse Ox O2 Delivery O2 Flow Rate FiO2 06/20/16 12:00 98.2 79 18 136/75 97 Room Air 06/20/16 10:26 90 18 97 Nasal Cannula 2.0 28 06/20/16 10:19 28 06/20/16 10:18 93 19 94 Nasal Cannula 2.0 28 06/20/16 08:00 97.8 76 18 118/55 92 Room Air 06/20/16 06:59 80 16 98 Nasal Cannula 2.0 28 06/20/16 06:52 87 18 Nasal Cannula 2.0 28 06/20/16 06:51 28 06/20/16 06:50 87 18 96 Nasal Cannula 2.0 28 06/20/16 06:49 Nasal Cannula 2.0 28 06/20/16 06:49 96 Nasal Cannula 2.0 28 06/20/16 04:00 98.2 83 21 112/79 92 Room Air 06/20/16 02:50 Nasal Cannula 06/20/16 02:50 Nasal Cannula 06/20/16 00:09 Nasal Cannula 06/20/16 00:09 Nasal Cannula 06/20/16 00:00 97.2 60 19 104/63 91 Nasal Cannula 2.0 06/19/16 20:00 98.0 85 18 138/78 95 Nasal Cannula 2.0 06/19/16 19:30 72 20 100 Nasal Cannula 2.0 28 06/19/16 19:22 97 Nasal Cannula 2.0 28 06/19/16 19:22 72 20 97 Nasal Cannula 2.0 28 06/19/16 19:22 Nasal Cannula 2.0 28 06/19/16 16:00 98.2 79 18 136/75 97 Nasal Cannula 2.0 06/19/16 15:57 Nasal Cannula 06/19/16 15:55 Nasal Cannula Height (Feet): 5 Height (Inches): 8.00 Weight (Pounds): 125 General Appearance: WD/WN, no acute distress HEENT: normocephalic, atraumatic, anicteric Respiratory/Chest: chest wall non-tender, normal breath sounds, no respiratory distress, no accessory muscle use, decreased breath sounds Cardiovascular: normal peripheral pulses, normal rate, regular rhythm, no gallop/murmur Abdomen: normal bowel sounds, soft, non tender, no organomegaly, non distended , no mass Extremities: no cyanosis, no clubbing Skin: no rash, no lesions Laboratory Tests Test 06/20/16 05:25 White Blood Count 12.6 K/UL (4.8-10.8) H Red Blood Count 4.21 M/UL (4.20-5.40) Hemoglobin 12.7 G/DL (12.0-16.0) Hematocrit 39.3 % (37.0-47.0) Mean Corpuscular Volume 93 FL (80-99) Mean Corpuscular Hemoglobin 30.2 PG (27.0-31.0) Mean Corpuscular Hemoglobin Concent 32.3 G/DL (32.0-36.0) Red Cell Distribution Width 13.8 % (11.6-14.8) Platelet Count 245 K/UL (150-450) Mean Platelet Volume 5.6 FL (6.5-10.1) L Neutrophils (%) (Auto) 72.6 % (45.0-75.0) Lymphocytes (%) (Auto) 16.2 % (20.0-45.0) L Monocytes (%) (Auto) 10.6 % (1.0-10.0) H Eosinophils (%) (Auto) 0.2 % (0.0-3.0) Basophils (%) (Auto) 0.4 % (0.0-2.0) Sodium Level 143 mEQ/L (135-145) Potassium Level 3.6 mEQ/L (3.4-4.9) Chloride Level 101 mEQ/L (98-107) Carbon Dioxide Level 29 mEQ/L (20-30) Anion Gap 13 (5-15) Blood Urea Nitrogen 22 mg/dL (7-23) Creatinine 0.8 mg/dL (0.5-0.9) Estimat Glomerular Filtration Rate > 60 mL/min (>60) Glucose Level 73 mg/dL (74-106) L Calcium Level 9.0 mg/dL (8.6-10.2) Phosphorus Level 2.7 mg/dL (2.5-4.8) Magnesium Level 2.1 mg/dL (1.7-2.5) Total Bilirubin < 0.2 mg/dL (0.0-1.2) Aspartate Amino Transf (AST/SGOT) 13 U/L (5-40) Alanine Aminotransferase (ALT/SGPT) 13 U/L (3-33) Alkaline Phosphatase 67 U/L (35-104) Total Protein 6.0 g/dL (6.6-8.7) L Albumin 3.6 g/dL (3.5-5.2) Globulin 2.4 g/dL Albumin/Globulin Ratio 1.5 (1.0-2.7) Current Medications Medications (Trade) Dose Ordered Sig/Toyin Route PRN Reason Start Time Stop Time Status Last Admin Dose Admin Albuterol/ Ipratropium 3 ml 3 ml EVERY 4 HOURS PRN HHN dyspnea 06/16/16 16:15 06/21/16 14:59 06/20/16 10:17 Dextrose (Dextrose 50%) STAT PRN IV Hypoglycemia 06/16/16 16:15 07/16/16 14:59 Heparin Sodium (Porcine) (Heparin 5000 units/ml) 5,000 units EVERY 12 HOURS SUBQ 06/16/16 21:00 07/16/16 20:59 06/20/16 09:41 Insulin Aspart (NovoLOG) BEFORE MEALS AND HS SUBQ 06/16/16 21:00 07/16/16 20:59 06/20/16 11:45 Levofloxacin (Levaquin) 100 ml @ 100 mls/hr Q24HRS IVPB 06/17/16 14:00 06/24/16 13:59 06/20/16 15:10 Lorazepam (Ativan 2mg/ml 1ml) 0.5 mg Q4H PRN IV For Anxiety 06/16/16 16:15 06/23/16 14:59 06/19/16 21:07 Memantine (Namenda) 5 mg TWICE A DAY ORAL 06/16/16 18:00 07/16/16 17:59 06/20/16 09:39 Methylprednisolone Sodium Succinate (Solu-MEDROL) 60 mg DAILY IV 06/20/16 09:00 07/20/16 08:59 06/20/16 09:39 Morphine Sulfate (Morphine Sulfate) 2 mg EVERY 4 HOURS PRN IVP severe pain 7-10 06/16/16 16:15 06/23/16 14:59 06/20/16 15:09 Nitroglycerin (Ntg) 0.4 mg Q5M X 3 DOSES PRN SL Prn Chest Pain 06/16/16 16:15 07/16/16 14:59 Ondansetron HCl (Zofran) 4 mg Q6H PRN IVP Nausea & Vomiting 06/16/16 16:15 07/16/16 14:59 Promethazine HCl/ Codeine (Phenergan with Codeine) 5 ml EVERY 6 HOURS PRN ORAL cough 06/16/16 16:15 07/16/16 14:59 06/17/16 17:41 Temazepam (Restoril) 15 mg HSPRN PRN ORAL Insomnia 06/16/16 16:15 06/23/16 14:59 06/19/16 00:48 Theophylline (Norberto-Dur) 100 mg EVERY 12 HOURS ORAL 06/16/16 21:00 07/16/16 20:59 06/20/16 09:39 Ava Harvey M.D. Jun 20, 2016 15:55
[2016-06-20 16:28] VITALS: BP 124/59
--- NOTE | 2016-06-20 19:00 | Pulmonology Progress Note ---
Assessment/Plan Problems: (1) Purulent bronchitis (2) Acute respiratory failure (3) Dementia (4) COPD (chronic obstructive pulmonary disease) Assessment/Plan increased wbc most likely secondary to steroids improving no sputum culture yet continue antibiotics decrease steroids to qd check labs in am BC negative no sputum yet Subjective ROS Limited/Unobtainable: Yes Respiratory: Reports: dyspnea at rest, dyspnea on exertion, productive cough, shortness of breath, sputum, wheezing Allergies: Coded Allergies: ASPIRIN (Verified Allergy, Unknown, 06/16/16) CELECOXIB (Verified Allergy, Unknown, 06/16/16) IBUPROFEN (Verified Allergy, Unknown, 06/16/16) Objective Last 24 Hour Vital Signs Date Time Temp Pulse Resp B/P Pulse Ox O2 Delivery O2 Flow Rate FiO2 06/20/16 17:46 95 18 97 Nasal Cannula 2.0 28 06/20/16 17:32 84 23 Nasal Cannula 2.0 28 06/20/16 16:28 98.8 84 18 124/59 94 Nasal Cannula 2.0 06/20/16 12:00 98.2 79 18 136/75 97 Room Air 06/20/16 10:26 90 18 97 Nasal Cannula 2.0 28 06/20/16 10:19 28 06/20/16 10:18 93 19 94 Nasal Cannula 2.0 28 06/20/16 08:00 97.8 76 18 118/55 92 Room Air 06/20/16 06:59 80 16 98 Nasal Cannula 2.0 28 06/20/16 06:52 87 18 Nasal Cannula 2.0 28 06/20/16 06:51 28 06/20/16 06:50 87 18 96 Nasal Cannula 2.0 28 06/20/16 06:49 Nasal Cannula 2.0 28 06/20/16 06:49 96 Nasal Cannula 2.0 28 06/20/16 04:00 98.2 83 21 112/79 92 Room Air 06/20/16 02:50 Nasal Cannula 06/20/16 02:50 Nasal Cannula 06/20/16 00:09 Nasal Cannula 06/20/16 00:09 Nasal Cannula 06/20/16 00:00 97.2 60 19 104/63 91 Nasal Cannula 2.0 06/19/16 20:00 98.0 85 18 138/78 95 Nasal Cannula 2.0 06/19/16 19:30 72 20 100 Nasal Cannula 2.0 28 06/19/16 19:22 97 Nasal Cannula 2.0 28 06/19/16 19:22 72 20 97 Nasal Cannula 2.0 28 06/19/16 19:22 Nasal Cannula 2.0 28 Intake and Output 06/19/16 06/20/16 18:59 06:59 Intake Total 420 ml 300 ml Output Total 100 ml Balance 420 ml 200 ml Intake Oral 420 ml 300 ml Output Urine Total 100 ml # Voids 2 5 General Appearance: no acute distress HEENT: normocephalic, atraumatic, PERRL Respiratory/Chest: chest wall non-tender, decreased breath sounds, accessory muscle use, rhonchi Breasts: no masses Cardiovascular: normal peripheral pulses, normal rate, regular rhythm, no JVD Abdomen: normal bowel sounds, soft, non tender, no organomegaly Genitourinary: normal external genitalia Extremities: no cyanosis Skin: no rash, no lesions Neurologic/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: 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, no motor/sensory deficits Laboratory Tests 06/20/16 05:25: White Blood Count 12.6H, Red Blood Count 4.21, Hemoglobin 12.7, Hematocrit 39.3 , Mean Corpuscular Volume 93, Mean Corpuscular Hemoglobin 30.2, Mean Corpuscular Hemoglobin Concent 32.3, Red Cell Distribution Width 13.8, Platelet Count 245, Mean Platelet Volume 5.6L, Neutrophils (%) (Auto) 72.6, Lymphocytes ( %) (Auto) 16.2L, Monocytes (%) (Auto) 10.6H, Eosinophils (%) (Auto) 0.2, Basophils (%) (Auto) 0.4, Sodium Level 143, Potassium Level 3.6, Chloride Level 101, Carbon Dioxide Level 29, Anion Gap 13, Blood Urea Nitrogen 22, Creatinine 0.8, Estimat Glomerular Filtration Rate > 60, Glucose Level 73L, Calcium Level 9.0, Phosphorus Level 2.7, Magnesium Level 2.1, Total Bilirubin < 0.2, Aspartate Amino Transf (AST/SGOT) 13, Alanine Aminotransferase (ALT/SGPT) 13, Alkaline Phosphatase 67, Total Protein 6.0L, Albumin 3.6, Globulin 2.4, Albumin/ Globulin Ratio 1.5 Current Medications Medications (Trade) Dose Ordered Sig/Toyin Route PRN Reason Start Time Stop Time Status Last Admin Dose Admin Albuterol/ Ipratropium 3 ml 3 ml EVERY 4 HOURS PRN HHN dyspnea 06/16/16 16:15 06/21/16 14:59 06/20/16 17:39 Dextrose (Dextrose 50%) STAT PRN IV Hypoglycemia 06/16/16 16:15 07/16/16 14:59 Heparin Sodium (Porcine) (Heparin 5000 units/ml) 5,000 units EVERY 12 HOURS SUBQ 06/16/16 21:00 07/16/16 20:59 06/20/16 09:41 Insulin Aspart (NovoLOG) BEFORE MEALS AND HS SUBQ 06/16/16 21:00 07/16/16 20:59 06/20/16 16:48 Levofloxacin (Levaquin) 100 ml @ 100 mls/hr Q24HRS IVPB 06/17/16 14:00 06/24/16 13:59 06/20/16 15:10 Lorazepam (Ativan 2mg/ml 1ml) 0.5 mg Q4H PRN IV For Anxiety 06/16/16 16:15 06/23/16 14:59 06/19/16 21:07 Memantine (Namenda) 5 mg TWICE A DAY ORAL 06/16/16 18:00 07/16/16 17:59 06/20/16 18:04 Methylprednisolone Sodium Succinate (Solu-MEDROL) 60 mg DAILY IV 06/20/16 09:00 07/20/16 08:59 06/20/16 09:39 Morphine Sulfate (Morphine Sulfate) 2 mg EVERY 4 HOURS PRN IVP severe pain 7-10 06/16/16 16:15 06/23/16 14:59 06/20/16 15:09 Nitroglycerin (Ntg) 0.4 mg Q5M X 3 DOSES PRN SL Prn Chest Pain 06/16/16 16:15 07/16/16 14:59 Ondansetron HCl (Zofran) 4 mg Q6H PRN IVP Nausea & Vomiting 06/16/16 16:15 07/16/16 14:59 Promethazine HCl/ Codeine (Phenergan with Codeine) 5 ml EVERY 6 HOURS PRN ORAL cough 06/16/16 16:15 07/16/16 14:59 06/17/16 17:41 Temazepam (Restoril) 15 mg HSPRN PRN ORAL Insomnia 06/16/16 16:15 06/23/16 14:59 06/19/16 00:48 Theophylline (Norberto-Dur) 100 mg EVERY 12 HOURS ORAL 06/16/16 21:00 07/16/16 20:59 06/20/16 09:39 MATT JACKSON Jun 20, 2016 19:00
[2016-06-20 20:23] VITALS: BP 99/64
[2016-06-21] VITALS: BP 115/64
[2016-06-21] MEDS: DuoNeb 0.5-3(2.5)mg/3ml neb HHN PRN ×3 (00:05→11:57)
[2016-06-21] MEDS: LORazepam Inj 2mg/ml 1ml IV PRN ×3 (01:02→19:26)
--- NOTE | 2016-06-21 02:38 | Progress Note ---
DATE: 06/19/2016 PSYCHOTHERAPY CONSULTATION PROGRESS NOTE SUBJECTIVE: The patient is a 66-year-old female, very confused, disorganized, altered in mental status, forgetful. She is very anxious, hopeless, helpless. She has been fluctuating with mood. She states she fluctuates between anxiety and depression due to her current medical condition. This clinician assessed the patient. The patient is provided with coping skills. Mood anxious. Affect is congruent. Thought process is disorganized. Poor attention and concentration. Poor insight, judgement, and impulse control. This clinician assessed the patient and provided the patient with supportive psychotherapy, reality orientation, and coping skills. Continue with medication management and behavioral management. This clinician has reviewed the patient's chart. Discussed the treatment with the nursing staff. Maycol Allred PsyD. DR: Morenita JOB#: [id number] CC:
[2016-06-21 04:00] VITALS: BP 105/53
[2016-06-21] MEDS: NovoLOG Insulin Flexpen SUBQ SCH ×3 (06:30→16:30)
[2016-06-21 08:00] VITALS: BP 104/67
[2016-06-21] MEDS: Theophylline ER 100mg ORAL SCH (08:48)
[2016-06-21] MEDS: Memantine 5 MG TAB ORAL SCH ×2 (08:48→18:00)
[2016-06-21] MEDS: Heparin 5000 units/ml inj SUBQ SCH (08:49)
[2016-06-21] MEDS: Solu-MEDROL 125mg Inj IV SCH (08:49)
[2016-06-21] MEDS ORDERED: Levofloxacin 500mg tab ORAL SCH (11:00)
--- NOTE | 2016-06-21 11:38 | General Progress Note ---
Assessment/Plan Problem List: (1) Dementia ICD Codes: F03.90 - Unspecified dementia without behavioral disturbance SNOMED: 95155522 (2) Acute respiratory failure ICD Codes: J96.00 - Acute respiratory failure, unspecified whether with hypoxia or hypercapnia SNOMED: 22658787 (3) Pneumonia ICD Codes: J18.9 - Pneumonia, unspecified organism SNOMED: 799950484 (4) Sepsis ICD Codes: A41.9 - Sepsis, unspecified organism SNOMED: 76034648 Status: progressing Assessment/Plan pna resp insuff afebrile no change no wheezing no cough Subjective ROS Limited/Unobtainable: Yes Constitutional: Reports: no symptoms Allergies: Coded Allergies: ASPIRIN (Verified Allergy, Unknown, 06/16/16) CELECOXIB (Verified Allergy, Unknown, 06/16/16) IBUPROFEN (Verified Allergy, Unknown, 06/16/16) Objective Last 24 Hour Vital Signs Date Time Temp Pulse Resp B/P Pulse Ox O2 Delivery O2 Flow Rate FiO2 06/21/16 08:17 75 14 Room Air 21 06/21/16 08:17 75 14 Room Air 21 06/21/16 08:17 96 Room Air 21 06/21/16 08:17 75 18 97 Room Air 21 06/21/16 08:17 Room Air 06/21/16 08:00 98.4 73 20 104/67 96 Room Air 06/21/16 04:00 97.9 80 16 105/53 95 Nasal Cannula 2.0 06/21/16 03:26 Nasal Cannula 06/21/16 03:25 Nasal Cannula 06/21/16 00:16 75 18 97 Nasal Cannula 2.0 06/21/16 00:05 74 20 Nasal Cannula 2.0 28 06/21/16 00:00 96.0 65 19 115/64 97 Nasal Cannula 2.0 06/20/16 20:23 98.4 72 19 99/64 94 Room Air 06/20/16 19:53 Nasal Cannula 06/20/16 19:52 Nasal Cannula 06/20/16 17:46 95 18 97 Nasal Cannula 2.0 28 06/20/16 17:32 84 23 Nasal Cannula 2.0 28 06/20/16 16:28 98.8 84 18 124/59 94 Nasal Cannula 2.0 06/20/16 12:00 98.2 79 18 136/75 97 Room Air Intake and Output 1/15/17 1/16/17 19:00 07:00 Intake Total 320 ml 480 ml Output Total 850 ml Balance 320 ml -370 ml Intake Oral 320 ml 480 ml Output Urine Total 850 ml # Voids 2 Height (Feet): 5 Height (Inches): 8.00 Weight (Pounds): 125 EENT: PERRL/EOMI Neck: supple Cardiovascular: normal rate Respiratory/Chest: lungs clear Abdomen: soft Alessandro Johnson MD Jun 21, 2016 11:38
[2016-06-21 12:00] VITALS: BP 110/62
--- NOTE | 2016-06-21 12:27 | Progress Note ---
DATE: 06/20/2016 PSYCHOTHERAPY CONSULTATION PROGRESS NOTE: TREATING ATTENDING PHYSICIAN: Antonio Alston D.O. SUBJECTIVE: The patient is a 66-year-old female. The patient has been anxious and . Her appetite has been . She is slightly depressed and due to her current medical condition; however, cooperative. The patient is alert and oriented x2 person and time. Mood is anxious. Affect is congruent. Thought process is disorganized. Thought content is linear. The patient has poor attention and concentration. Poor insight, judgement, and impulse control. This clinician assessed the patient and provided the patient with supportive psychotherapy, reality orientation, and coping skills. Continue with medication management and behavioral management. This clinician has reviewed the patient's chart. Discussed the treatment with the nursing staff. Maycol Allred PsyD. : MOHAN JOB#: [id number] CC:
--- NOTE | 2016-06-21 13:48 | Pulmonology Progress Note ---
Assessment/Plan Problems: (1) Purulent bronchitis (2) Acute respiratory failure (3) Dementia (4) COPD (chronic obstructive pulmonary disease) Assessment/Plan increased wbc most likely secondary to steroids improving no sputum culture yet continue antibiotics decrease steroids to qd check labs in am BC negative no sputum yet Subjective Constitutional: Reports: anorexia, fatigue Respiratory: Reports: dry cough, shortness of breath Neurologic: Reports: confusion, weakness Allergies: Coded Allergies: ASPIRIN (Verified Allergy, Unknown, 06/16/16) CELECOXIB (Verified Allergy, Unknown, 06/16/16) IBUPROFEN (Verified Allergy, Unknown, 06/16/16) Objective Last 24 Hour Vital Signs Date Time Temp Pulse Resp B/P Pulse Ox O2 Delivery O2 Flow Rate FiO2 06/21/16 12:00 98.0 78 20 110/62 97 Nasal Cannula 2.0 06/21/16 11:57 78 16 Room Air 21 06/21/16 11:57 77 16 96 Room Air 21 06/21/16 08:17 75 14 Room Air 21 06/21/16 08:17 75 14 Room Air 21 06/21/16 08:17 96 Room Air 21 06/21/16 08:17 75 18 97 Room Air 21 06/21/16 08:17 Room Air 06/21/16 08:00 98.4 73 20 104/67 96 Room Air 06/21/16 04:00 97.9 80 16 105/53 95 Nasal Cannula 2.0 06/21/16 03:26 Nasal Cannula 06/21/16 03:25 Nasal Cannula 06/21/16 00:16 75 18 97 Nasal Cannula 2.0 06/21/16 00:05 74 20 Nasal Cannula 2.0 28 06/21/16 00:00 96.0 65 19 115/64 97 Nasal Cannula 2.0 06/20/16 20:23 98.4 72 19 99/64 94 Room Air 06/20/16 19:53 Nasal Cannula 06/20/16 19:52 Nasal Cannula 06/20/16 17:46 95 18 97 Nasal Cannula 2.0 28 06/20/16 17:32 84 23 Nasal Cannula 2.0 28 06/20/16 16:28 98.8 84 18 124/59 94 Nasal Cannula 2.0 Intake and Output 06/20/16 06/21/16 19:00 07:00 Intake Total 320 ml 480 ml Output Total 850 ml Balance 320 ml -370 ml Intake Oral 320 ml 480 ml Output Urine Total 850 ml # Voids 2 General Appearance: no acute distress HEENT: normocephalic, atraumatic, PERRL Respiratory/Chest: chest wall non-tender, decreased breath sounds, accessory muscle use, rhonchi Breasts: no masses Cardiovascular: normal peripheral pulses, normal rate, regular rhythm, no JVD Abdomen: normal bowel sounds, soft, non tender, no organomegaly Genitourinary: normal external genitalia Extremities: no cyanosis 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, disoriented, depressed affect Current Medications Medications (Trade) Dose Ordered Sig/Toyin Route PRN Reason Start Time Stop Time Status Last Admin Dose Admin Albuterol/ Ipratropium (DuoNeb 0.5-3(2.5)mg/3ml) 3 ml EVERY 4 HOURS PRN HHN dyspnea 06/16/16 16:15 06/21/16 14:59 06/21/16 11:57 Dextrose (Dextrose 50%) STAT PRN IV Hypoglycemia 06/16/16 16:15 07/16/16 14:59 Heparin Sodium (Porcine) (Heparin 5000 units/ml) 5,000 units EVERY 12 HOURS SUBQ 06/16/16 21:00 07/16/16 20:59 06/21/16 08:49 Insulin Aspart (NovoLOG) BEFORE MEALS AND HS SUBQ 06/16/16 21:00 07/16/16 20:59 06/21/16 11:22 Levofloxacin (Levaquin) 500 mg DAILY ORAL 06/21/16 11:00 06/23/16 09:01 06/21/16 11:18 Lorazepam (Ativan 2mg/ml 1ml) 0.5 mg Q4H PRN IV For Anxiety 06/16/16 16:15 06/23/16 14:59 06/21/16 01:02 Memantine (Namenda) 5 mg TWICE A DAY ORAL 06/16/16 18:00 07/16/16 17:59 06/21/16 08:48 Methylprednisolone Sodium Succinate (Solu-MEDROL) 60 mg DAILY IV 06/20/16 09:00 07/20/16 08:59 06/21/16 08:49 Morphine Sulfate (Morphine Sulfate) 2 mg EVERY 4 HOURS PRN IVP severe pain 7-10 06/16/16 16:15 06/23/16 14:59 06/20/16 20:40 Nitroglycerin (Ntg) 0.4 mg Q5M X 3 DOSES PRN SL Prn Chest Pain 06/16/16 16:15 07/16/16 14:59 Ondansetron HCl (Zofran) 4 mg Q6H PRN IVP Nausea & Vomiting 06/16/16 16:15 07/16/16 14:59 Promethazine HCl/ Codeine (Phenergan with Codeine) 5 ml EVERY 6 HOURS PRN ORAL cough 06/16/16 16:15 07/16/16 14:59 06/17/16 17:41 Temazepam (Restoril) 15 mg HSPRN PRN ORAL Insomnia 06/16/16 16:15 06/23/16 14:59 06/19/16 00:48 Theophylline (Norberto-Dur) 100 mg EVERY 12 HOURS ORAL 06/16/16 21:00 07/16/16 20:59 06/21/16 08:48 MATT JACKSON Jun 21, 2016 13:48
--- NOTE | 2016-06-21 15:51 | Infectious Diseases Prog Note ---
Assessment/Plan Problems: (1) Upper respiratory infection Assessment & Plan: influenza screening is negative , continue levofloxacin for 5-7 days , taper steroids (2) Purulent bronchitis Assessment & Plan: await sputum culture , continue levofloxacin for 5-7 days (3) Psychiatric disorder Assessment & Plan: continue psych meds, follow up with psych (4) Dementia Assessment & Plan: continue supportive care Subjective HEENT: Reports: congestion Respiratory: Reports: dry cough Allergies: Coded Allergies: ASPIRIN (Verified Allergy, Unknown, 06/16/16) CELECOXIB (Verified Allergy, Unknown, 06/16/16) IBUPROFEN (Verified Allergy, Unknown, 06/16/16) All Systems: reviewed and negative except above Subjective she was resting in bed , still congested .had dry cough, no fever or chills. Objective Vital Signs Last 24 Hour Vital Signs Date Time Temp Pulse Resp B/P Pulse Ox O2 Delivery O2 Flow Rate FiO2 06/21/16 12:00 98.0 78 20 110/62 97 Nasal Cannula 2.0 06/21/16 11:57 78 16 Room Air 21 06/21/16 11:57 77 16 96 Room Air 21 06/21/16 08:17 75 14 Room Air 21 06/21/16 08:17 75 14 Room Air 21 06/21/16 08:17 96 Room Air 21 06/21/16 08:17 75 18 97 Room Air 21 06/21/16 08:17 Room Air 06/21/16 08:00 98.4 73 20 104/67 96 Room Air 06/21/16 04:00 97.9 80 16 105/53 95 Nasal Cannula 2.0 06/21/16 03:26 Nasal Cannula 06/21/16 03:25 Nasal Cannula 06/21/16 00:16 75 18 97 Nasal Cannula 2.0 28 06/21/16 00:05 74 20 Nasal Cannula 2.0 28 06/21/16 00:00 96.0 65 19 115/64 97 Nasal Cannula 2.0 06/20/16 20:23 98.4 72 19 99/64 94 Room Air 06/20/16 19:53 Nasal Cannula 06/20/16 19:52 Nasal Cannula 06/20/16 17:46 95 18 97 Nasal Cannula 2.0 28 06/20/16 17:32 84 23 Nasal Cannula 2.0 28 06/20/16 16:28 98.8 84 18 124/59 94 Nasal Cannula 2.0 Height (Feet): 5 Height (Inches): 8.00 Weight (Pounds): 125 General Appearance: WD/WN, no acute distress HEENT: normocephalic, atraumatic, anicteric, mucous membranes moist Respiratory/Chest: chest wall non-tender, normal breath sounds, no respiratory distress, no accessory muscle use, decreased breath sounds, inspiratory wheezing Cardiovascular: normal peripheral pulses, normal rate, regular rhythm, no gallop/murmur Abdomen: normal bowel sounds, soft, non tender, no organomegaly, non distended , no mass Extremities: no cyanosis, no clubbing Skin: no rash, no lesions Current Medications Medications (Trade) Dose Ordered Sig/Toyin Route PRN Reason Start Time Stop Time Status Last Admin Dose Admin Dextrose (Dextrose 50%) STAT PRN IV Hypoglycemia 06/16/16 16:15 07/16/16 14:59 Heparin Sodium (Porcine) (Heparin 5000 units/ml) 5,000 units EVERY 12 HOURS SUBQ 06/16/16 21:00 07/16/16 20:59 06/21/16 08:49 Insulin Aspart (NovoLOG) BEFORE MEALS AND HS SUBQ 06/16/16 21:00 07/16/16 20:59 06/21/16 11:22 Levofloxacin (Levaquin) 500 mg DAILY ORAL 06/21/16 11:00 06/23/16 09:01 06/21/16 11:18 Lorazepam (Ativan 2mg/ml 1ml) 0.5 mg Q4H PRN IV For Anxiety 06/16/16 16:15 06/23/16 14:59 06/21/16 15:01 Memantine (Namenda) 5 mg TWICE A DAY ORAL 06/16/16 18:00 07/16/16 17:59 06/21/16 08:48 Methylprednisolone Sodium Succinate (Solu-MEDROL) 60 mg DAILY IV 06/20/16 09:00 07/20/16 08:59 06/21/16 08:49 Morphine Sulfate (Morphine Sulfate) 2 mg EVERY 4 HOURS PRN IVP severe pain 7-10 06/16/16 16:15 06/23/16 14:59 06/20/16 20:40 Nitroglycerin (Ntg) 0.4 mg Q5M X 3 DOSES PRN SL Prn Chest Pain 06/16/16 16:15 07/16/16 14:59 Ondansetron HCl (Zofran) 4 mg Q6H PRN IVP Nausea & Vomiting 06/16/16 16:15 07/16/16 14:59 Promethazine HCl/ Codeine (Phenergan with Codeine) 5 ml EVERY 6 HOURS PRN ORAL cough 06/16/16 16:15 07/16/16 14:59 06/17/16 17:41 Temazepam (Restoril) 15 mg HSPRN PRN ORAL Insomnia 06/16/16 16:15 06/23/16 14:59 06/19/16 00:48 Theophylline (Norberto-Dur) 100 mg EVERY 12 HOURS ORAL 06/16/16 21:00 07/16/16 20:59 06/21/16 08:48 Ava Harvey M.D. Jun 21, 2016 15:51
[2016-06-21 16:00] VITALS: BP 108/65
[2016-06-21] MEDS ORDERED: NITROGLYCERIN0.4 MG SL (18:48)
[2016-06-21] MEDS ORDERED: NAMENDA5 MG ORAL (18:49)
[2016-06-21] MEDS ORDERED: NOVOLOG100 UNIT/3 SUBQ (18:49)
[2016-06-21] MEDS ORDERED: HEPARIN SO5000 UNIT2 SUBQ (18:50)
[2016-06-21] MEDS ORDERED: ONDANSETRON4 MG/2 M1 IJ (18:51)
[2016-06-21] MEDS ORDERED: THEOPHYLLINE A100 MG ORAL (18:52)
[2016-06-21] MEDS ORDERED: DEXTROSE 50%-WA50 M1 IV (18:55)
[2016-06-21] MEDS ORDERED: LORAZEPAM2 MG/1 M3 IV (18:56)
[2016-06-21] MEDS ORDERED: MORPHINE SU4 MG/1 ML IJ (18:57)
[2016-06-21] MEDS ORDERED: PROMETH-CODEIN 65 ML PO (18:59)
[2016-06-21] MEDS ORDERED: RESTORIL15 MG ORAL (19:01)
[2016-06-21] MEDS ORDERED: SOLU-MEDRO40 MG/1 M2 IJ (19:02)
[2016-06-21] MEDS ORDERED: LEVOFLOXACIN500 MG ORAL (19:02)
--- NOTE | 2016-06-22 07:58 | History and Physical Report ---
DATE OF ADMISSION: 06/16/2016 TIME SEEN: At 3 p.m. ADMITTING PHYSICIAN: Antonio Alston M.D. CONSULTING PHYSICIAN: Gabino Almanza M.D. Dr. Harvey. Dr. Haile. CHIEF COMPLAINT: Shortness of breath, pneumonia, and encephalopathy. HISTORY OF PRESENT ILLNESS: This is a 66-year-old female from [facility], presenting with increased shortness of breath x2 days, getting worse and coughing. The patient was diagnosed with pneumonia, hypertension, encephalopathy, being admitted to medical floor for treatment. Currently calm in the ER [facility]. No complaints. PAST MEDICAL HISTORY: Hypertension, encephalopathy, asthma, hypothyroidism, COPD, and CHF. PAST SURGICAL HISTORY: Tonsillectomy. MEDICATIONS: Zosyn, heparin, theophylline, Namenda, methylprednisolone, levothyroxine, ketorolac, morphine, nitroglycerin, and Zofran. ALLERGIES: Aspirin, Celexa, ibuprofen, and NSAID. SOCIAL HISTORY: No smoke. No alcohol. No intravenous drug abuse. FAMILY HISTORY: Noncontributory. REVIEW OF SYSTEMS: No chest pain or shortness of breath. No nausea, vomiting, or diarrhea. PHYSICAL EXAMINATION: GENERAL: Calm in bed, oriented x1, in no acute distress. VITAL SIGNS: Temperature is 98.0 degrees, pulse 83, respirations 20, and blood pressure 123/78. CARDIOVASCULAR: No murmur. LUNGS: Poor air exchange. ABDOMEN: Positive bowel sounds. Soft, nontender, and nondistended. EXTREMITIES: No cyanosis, clubbing, or edema. NEUROLOGIC: The patient moves all extremities. She is slightly weak. LABORATORY DATA: CBC is normal. BMP shows glucose 114, otherwise normal. Urinalysis, 1+ leukocyte esterase. ASSESSMENT: 1. Pneumonia. 2. UTI. 3. Sepsis. 4. Hypertension. 5. Encephalopathy. 6. Asthma. 7. Hyperthyroidism. 8. Chronic obstructive pulmonary disease. 9. Congestive heart failure. PLAN: Continue pre-medications. O2 and pulmonary treatment. Antibiotics per Infectious Disease. Steroids per Pulmonary. Resume home medications. OT/PT, dietary evaluation, CBC, and BMP in the morning. Dr. Almanza, Dr. Harvey and Dr. Haile to consult. Antonio Alston D.O. DR: Mary JOB#: [id number] CC:
--- NOTE | 2016-06-22 15:53 | Diagnostic Imaging Report ---
Indications: Cough Technique: Portable AP chest Findings: Comparison: 06/16/2016 Cardiac silhouette remains enlarged. Pulmonary vasculature remains within normal limits. Bilateral interstitial prominence has decreased. Right lung base linear density has resolved. Lungs and pleura remain clear. IMPRESSION: No current evidence of acute disease Resolution of apparent bilateral interstitial prominence on previous exam may be technical in nature or represent resolving pulmonary edema Resolution of right lung base subsegmental atelectasis Stable cardiomegaly
[2016-06-23] MEDS ORDERED: MEDROL4 MG ORAL (08:42)
--- NOTE | 2016-06-23 08:48 | Discharge Summary ---
Discharge Summary Hospital Course Date of Admission Jun 16, 2016 at 13:30 Date of Discharge Jun 21, 2016 at 20:00 Admitting Diagnosis COPD exacerbation, r/o PNA HPI Ruth Bishop is a 66 year old female who was admitted on Jun 16, 2016 at 13:30 for Pneumonia Hospital Course dc summary dictated #[id number] Discharge Medications New Medications: Methylprednisolone* (Medrol*) 4 Mg Tablet 4 MG ORAL DAILY, #10 TAB 0 Refills Continued Medications: Dextrose 50 % In Water (Dextrose 50%-Water Vial) 50 Ml Vial 50 ML IV PRN PRN for Hypoglycemia, VIAL Heparin Sod (Porcine) (Heparin Sodium*) 5 000/1 Ml Vial 5000 UNITS SUBQ EVERY 12 HOURS, VIAL Insulin Aspart* (Novolog*) 100 Unit/1 Ml Insuln.pen 0 SUBQ AC+HS, #1 EA 0 Refills Levofloxacin (Levofloxacin*) 500 Mg Tablet 500 MG ORAL DAILY, TAB Lorazepam (Lorazepam) 2 Mg/1 Ml Syringe 0.5 MG IV Q4H PRN for For Anxiety, EA Memantine Hcl* (Namenda*) 5 Mg Tablet 5 MG ORAL TWICE A DAY, TAB Methylprednisolone Sod Succ/Pf (Solu-Medrol (Pf) 40 Mg Vial) 40 Mg/1 Ml Vial 60 MG IJ DAILY, VIAL Morphine Sulfate (Morphine Sulfate) 4 Mg/1 Ml Syringe 2 MG IJ EVERY 4 HOURS PRN for Severe Pain (Pain Scale 7-10), EA Nitroglycerin (Nitroglycerin) 0.4 Mg Tab.subl 0.4 MG SL [id number] PRN for CHEST PAIN, TAB Ondansetron Hcl/Pf (Ondansetron 4 Mg/2 Ml Ampule) 4 Mg/2 Ml Ampul 4 MG IJ EVERY 6 HOURS PRN for Nausea & Vomiting, AMP Promethazine HCl/Codeine (Prometh-Codein 6.25-10 mg/5 ml) 5 Ml Syrup 5 ML PO EVERY 6 HOURS PRN for For Cough, ML Temazepam* (Restoril*) 15 Mg Capsule 15 MG ORAL BEDTIME PRN for Insomnia, CAP Theophylline (Theodur*) 100 Mg Tab.er.12h 100 MG ORAL EVERY 12 HOURS, #30 TAB 0 Refills Discharge Condition Upon Discharge: improving, stable Discharge Disposition Patient was discharged to [facility] (63) Discharge Diagnoses: Discharge Instructions Discharge Instructions Special Instructions I have been assigned to complete a D/C Summary on this account. I was not involved in the patient management Marce Jean NP ([place]) Jun 23, 2016 08:48
--- NOTE | 2016-06-23 23:17 | Discharge Summary 2 SIG ---
DATE OF ADMISSION: 06/16/2016 DATE OF DISCHARGE: 06/21/2016 The patient was admitted under Dr. Alston. REASON FOR HOSPITALIZATION: 66-year-old female, was brought from intermediate facility where she resides with complaint of cough and congestion for a week. The cough was productive with occasional wheezing. No hemoptysis. She denied fever or chills. No chest pain. No shortness of breath. Some chest tightness. The patient with underlying history of chronic obstructive pulmonary disease as well as paranoid schizophrenia. Chest x-ray in the emergency room was negative for any acute cardiopulmonary disease. The patient was placed on supplemental oxygen, nebulizing treatment provided, loding dose of Solumedrol administered, and the patient was admitted for acute chronic obstructive pulmonary disease exacerbation. ADMITTING DIAGNOSES: 1. Upper respiratory infection. 2. Purulent bronchitis. 3. Acute chronic obstructive pulmonary disease exacerbation. 4. Dementia. 5. Acute respiratory failure. HOSPITAL STAY: Supplemental oxygen and pulmonary toilet provided as needed. Follow up chest x-ray was negative for acute cardiopulmonary disease as well. Revealed only evidence of cardiomegaly. Influenza screen test was negative. Blood culture were negative. The patient was on empiric antibiotics, which will be continued upon discharge for additional few days. The patient was s on IV steroids, which were gradually tapered and changed to oral steroids upon discharge. Antitussive provided as needed. The patient was started on theophylline. Infectious Disease doctor and Pulmonary consult followed the patient throughout the stay in the hospital. Psychotherapy consultation was requested in lieu of the paranoid schizophrenia. Psychiatric medications were continued. The patient was seen on a regular basis by psychotherapy doctor. Pulmonary and ID cleared for discharge on oral steroids and oral antibiotics. Leukocytosis trending down. Afebrile. No congestion. Decreased cough. DISCHARGE MEDICATIONS: See medication reconciliation list. FINAL DIAGNOSES: 1. Acute chronic obstructive pulmonary disease exacerbation. 2. Purulent bronchitis. 3. Upper respiratory infection. 4. Acute respiratory failure, resolved. 5. Dementia. 6. Paranoid schizophrenia. DISCHARGE INSTRUCTIONS: The patient was discharged to intermediate facility. Followup with the medical doctor at the facility. Antonio Alston, D.O. I have been assigned to dictate discharge summary on this account and I was not involved in the patient's management. Marce Jean N.P. ([place]) DR: DIOGO JOB#: [id number] CC: ISAC
--- NOTE | 2016-06-24 20:18 | Progress Note ---
DATE: 06/18/2016 PSYCHIATRIC PROGRESS NOTE SUBJECTIVE: She is confused and disorganized. PLAN: My plan for this patient is to treat her with a psychiatric medication regimen consisting of Zyprexa to help stabilize her mood. Chart reviewed and discussed with staff. Seen and assessed at bedside. Lizzie Haile M.D. DR: CEFERINO JOB#: [id number] CC:
--- NOTE | 2016-06-24 20:27 | Progress Note ---
DATE: 06/19/2016 PSYCHIATRIC PROGRESS NOTE SUBJECTIVE: This is a female patient, she continued to have altered mental status and confusion secondary to the progression of her medical illness. PLAN: Plan is to continue treatment with Zyprexa to stabilize her mood. Continue treatment with psychotropic medications to stabilize her mood Zyprexa. Chart reviewed and discussed with staff. Seen and assessed at bedside. Lizzie Haile M.D. DR: CEFERINO JOB#: [id number] CC:
--- NOTE | 2016-06-24 20:27 | Consultation ---
DATE OF CONSULTATION: PSYCHIATRIC EVALUATION REQUESTING PHYSICIAN: Antonio Alston D.O. HISTORY: The patient is a 66-year-old female patient who was admitted to [facility] secondary to COPD exacerbation, but this patient came in with acute respiratory failure, upper respiratory infection and bronchitis, but she has a diagnosis of paranoid schizophrenia. Thus a psychiatric consultation requested to evaluate this patient, as her cognition has declined below baseline secondary to the progression of her medical illness. Basically, she has shortness of breath, pneumonia, and COPD because of her altered mental status and history of schizophrenia, Psychiatric consult was requested. This patient is transferred from skilled nursing to [facility]. She has intermittent bouts of agitation with altered mental status. Her cognition has declined below baseline. MEDICAL PROBLEMS: Hypertension, encephalopathy, asthma, hypothyroidism, COPD, and congestive heart failure. ALLERGIES: Aspirin, Celexa, Motrin and multiple insects. SOCIAL HISTORY: Lives in a skilled nursing. Financially supported by [employer] and Medicare. SUBSTANCE ABUSE HISTORY: No history of any drug or alcohol use. PSYCHIATRIC HISTORY: Paranoid schizophrenia. Most recent psychiatric admission at Hospital under my care. MENTAL STATUS EXAMINATION: This is a 56-year-old female with psychomotor agitation. Mood is irritable and agitated. Affect guarded and restricted. Thought process disorganized and illogical. Denies any current suicidal or homicidal thoughts. Insight and judgment is poor. DIAGNOSIS: Paranoid schizophrenia with acute exacerbation. PLAN: Overall plan for this patient is to treat her with a psychotropic medication regimen consisting of Cogentin 0.5 mg orally and also symptoms, but also Namenda 5 mg twice a day and Zyprexa 10 mg per day and encouraged her to interact appropriately with staff and other patients. Also provide supportive therapy. Chart reviewed. Discussed with her . Lizzie Haile M.D. DR: PILO JOB#: [id number] CC:
--- NOTE | 2016-06-24 20:38 | Progress Note ---
DATE: 06/20/2016 SUBJECTIVE: This is a female patient. She still has altered mental status, confused, and disorganized thought process. PLAN: Continue treatment with medication regimen of Zyprexa to stabilize her mood. Chart reviewed and discussed with staff. Seen and assessed at bedside. Lizzie Haile M.D. DR: MENDEZ JOB#: [id number] CC:
== END 2016-06-21 20:00 | DRG 871 ==
LOC: EDBD 11:52 → EMR 13:25 → 3E 13:30 → EDBEDREQ 13:47 → EMR 16:05 → 3E 18:35
DX: A41.9 Sepsis, unspecified organism (principal); J18.9 Pneumonia, unspecified organism; J96.00 Acute respiratory failure, unspecified whether with hypoxia or hypercapnia; G93.40 Encephalopathy, unspecified; F03.90 Unspecified dementia, unspecified severity, without behavioral disturbance, psychotic disturbance, mood disturbance, and anxiety; I50.9 Heart failure, unspecified; N39.0 Urinary tract infection, site not specified; J44.1 Chronic obstructive pulmonary disease with (acute) exacerbation; F20.0 Paranoid schizophrenia; J41.1 Mucopurulent chronic bronchitis; I10 Essential (primary) hypertension; J45.909 Unspecified asthma, uncomplicated; E05.90 Thyrotoxicosis, unspecified without thyrotoxic crisis or storm; Z88.6 Allergy status to analgesic agent; Z88.8 Allergy status to other drugs, medicaments and biological substances; J06.9 Acute upper respiratory infection, unspecified; F41.8 Other specified anxiety disorders
CPT/HCPCS: 36415; 71010; 80048; 80053; 81003; 82550; 82553; 82962; 83605; 83735; 83880; 84100; 84484; 85007; 85025; 86710; 87040; 87081; 93005; 94640; 94664; 94760; 97803; J1815; J7620; Q2036

== ENCOUNTER 2016-08-18 18:05 | Emergency (ER) | payer OTHER ==
[~2016-08-18] VITALS: Ht 172.7 cm; Wt 68.0 kg
[~2016-08-18 18:05] MED LIST: ATIVAN1 MG ORAL; BENZTROPINE ME0.5 MG PO; CLARITIN10 M2 ORAL; DEXTROSE 50%-WA50 M1 IV; DuoNeb 0.5-3(2.5)mg/3ml neb HHN ONE; FLONASE ALLERG9.9 ML NS; HEPARIN SO5000 UNIT2 SUBQ; LEVOFLOXACIN500 MG ORAL; LORAZEPAM2 MG/1 M3 IV; MEDROL4 MG ORAL; MORPHINE SU4 MG/1 ML IJ; NAMENDA5 MG ORAL; NITROGLYCERIN0.4 MG SL; NOVOLOG100 UNIT/3 SUBQ; ONDANSETRON4 MG/2 M1 IJ; PROMETH-CODEIN 65 ML PO; RESTORIL15 MG ORAL; SOLU-MEDRO40 MG/1 M2 IJ; THEOPHYLLINE A100 MG ORAL; VITAMIN D400 INTLU ORAL; ZOFRAN ODT4 MG ORAL; ZYPREXA10 MG ORAL
[2016-08-18 18:32] LABS: APPEARANCE,URINE CLEAR; KETONES,URINE NEGATIVE (NEGATIVE); LEUKOCYTE ESTERASE ,URINE NEGATIVE (NEGATIVE); NITRITE,URINE NEGATIVE (NEGATIVE); PH,URINE 5 (4.5-8.0); PROTEIN,URINE NEGATIVE (NEGATIVE); UROBILINOGEN,URINE NORMAL MG/DL (0.0-1.0)
[2016-08-18 18:40] LABS: BASOPHILS % (AUTO) 1.4 % (0.0-2.0); EOSINOPHILS % (AUTO) 11.6 % (0.0-3.0); LYMPHOCYTES % (AUTO) 14.6 % (20.0-45.0); MEAN CORPUSCULAR HEMOGLOBIN 30.1 PG (27.0-31.0); MEAN CORPUSCULAR HGB CONC 32.5 G/DL (32.0-36.0); MEAN CORPUSCULAR VOLUME 93 FL (80-99); MEAN PLATELET VOLUME 5.8 FL (6.5-10.1); MONOCYTES % (AUTO) 7.5 % (1.0-10.0); NEUTROPHILS % (AUTO) 64.9 % (45.0-75.0); PLATELET COUNT 205 K/UL (150-450); RED BLOOD COUNT 4.16 M/UL (4.20-5.40); RED CELL DISTRIBUTION WIDTH 14.3 % (11.6-14.8); WHITE BLOOD COUNT 7.2 K/UL (4.8-10.8)
[2016-08-18 18:44] LABS: PROTHROMBIN TIME 10.4 SEC (9.30-11.50)
[2016-08-18 18:46] LABS: ALANINE AMINOTRANSFERASE 8 U/L (3-33); ALBUMIN/GLOBULIN RATIO 1.4 (1.0-2.7); ANION GAP 15 (5-15); ASPARTATE AMINO TRANSFERASE 13 U/L (5-40); CALCIUM 9.3 mg/dL (8.6-10.2); CARBON DIOXIDE 26 mEQ/L (20-30); CHLORIDE 102 mEQ/L (98-107); CREATININE 0.8 mg/dL (0.5-0.9); GLOMERULAR FILTRATION RATE > 60 mL/min (>60); HEMOLYSIS 5; SODIUM 143 mEQ/L (135-145); TOTAL PROTEIN 6.4 g/dL (6.6-8.7); TROPONIN I < 0.30 ng/mL (<=0.30)
[2016-08-18 18:53] LABS: BACTERIA,URINE FEW /HPF; SQUAMOUS EPITHELIAL CELL,UR FEW /LPF (NONE/OCC); WBC,URINE 0-2 /HPF (0 - 2)
[2016-08-18] MEDS ORDERED: PREDNISONE20 MG ORAL (19:13)
[2016-08-18] MEDS ORDERED: LORazepam 1mg tab ORAL ONE (20:00)
[2016-08-18] MEDS ORDERED: DuoNeb 0.5-3(2.5)mg/3ml neb HHN ONE (20:30)
[2016-08-18 21:30] VITALS: BP 137/98
[2016-08-19] VITALS: BP 130/90
[2016-08-19 01:30] VITALS: BP 127/89
--- NOTE | 2016-08-20 07:25 | Emergency Room Report ---
History of Present Illness General Chief Complaint: General Complaint Source: Patient, Medical Record Present Illness HPI Patient is a 66-year-old female who presented after having increased difficulty breathing. Patient gradual onset of symptoms. Patient had prior history of COPD. She also had prior psychiatric history. She denied any fever. Patient reported having been given antibiotics recently after a long infection. Patient reported having a nonproductive cough. As she recently been on antibiotics. Allergies: Coded Allergies: ASPIRIN (Verified Allergy, Unknown, 06/16/16) CELECOXIB (Verified Allergy, Unknown, 06/16/16) IBUPROFEN (Verified Allergy, Unknown, 06/16/16) Patient History Past Medical History: see triage record Reviewed Nursing Documentation: PMH: Agreed, PSxH: Agreed Nursing Documentation-PMH Past Medical History: No History, Except For Hx Cardiac Problems: No Hx COPD: Yes Hx Cancer: No Hx Gastrointestinal Problems: Yes Hx Neurological Problems: No Review of Systems All Other Systems: negative except mentioned in HPI Physical Exam Vital Signs Date Time Temp Pulse Resp B/P Pulse Ox O2 Delivery O2 Flow Rate FiO2 08/18/16 17:29 98.1 88 20 107/68 100 Room Air 08/18/16 18:07 21 Sp02 EP Interpretation: reviewed, normal General Appearance: normal inspection, no apparent distress, alert, GCS 15, thin, Chronically Ill Head: atraumatic ENT: normal ENT inspection, hearing grossly normal, normal voice Neck: normal inspection, full range of motion, supple, no bony tend Respiratory: normal inspection, lungs clear, normal breath sounds, no respiratory distress, no retraction, no wheezing Cardiovascular #1: regular rate, rhythm, no edema Gastrointestinal: normal inspection, normal bowel sounds, non tender, soft, no guarding, no hernia Genitourinary: no CVA tenderness Musculoskeletal: normal range of motion, other - atrophy to extremities Neurologic: alert, oriented x3, responsive, 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 The patient was [facility] her [facility] via [facility].The patient is advised to follow up with primary care doctor in 1-2 days. Patient is advised to return if any worsening condition or if any changes in status that are concerning. Labs Test 08/18/16 18:17 White Blood Count 7.2 K/UL (4.8-10.8) Red Blood Count 4.16 M/UL (4.20-5.40) Hemoglobin 12.5 G/DL (12.0-16.0) Hematocrit 38.5 % (37.0-47.0) Mean Corpuscular Volume 93 FL (80-99) Mean Corpuscular Hemoglobin 30.1 PG (27.0-31.0) Mean Corpuscular Hemoglobin Concent 32.5 G/DL (32.0-36.0) Red Cell Distribution Width 14.3 % (11.6-14.8) Platelet Count 205 K/UL (150-450) Mean Platelet Volume 5.8 FL (6.5-10.1) Neutrophils (%) (Auto) 64.9 % (45.0-75.0) Lymphocytes (%) (Auto) 14.6 % (20.0-45.0) Monocytes (%) (Auto) 7.5 % (1.0-10.0) Eosinophils (%) (Auto) 11.6 % (0.0-3.0) Basophils (%) (Auto) 1.4 % (0.0-2.0) Prothrombin Time 10.4 SEC (9.30-11.50) Prothromb Time International Ratio 1.0 (0.9-1.1) Activated Partial Thromboplast Time 25 SEC (23-33) Urine Color Pale yellow Urine Appearance Clear Urine pH 5 (4.5-8.0) Urine Specific [place] 1.020 (1.005-1.035) Urine Protein Negative (NEGATIVE) Urine Glucose (UA) Negative (NEGATIVE) Urine Ketones Negative (NEGATIVE) Urine Occult Blood 1+ (NEGATIVE) Urine Nitrite Negative (NEGATIVE) Urine Bilirubin Negative (NEGATIVE) Urine Urobilinogen Normal MG/DL (0.0-1.0) Urine Leukocyte Esterase Negative (NEGATIVE) Urine RBC 2-4 /HPF (0 - 2) Urine WBC 0-2 /HPF (0 - 2) Urine Squamous Epithelial Cells Few /LPF (NONE/OCC) Urine Bacteria Few /HPF (NONE) Urine HCG, Qualitative Negative Sodium Level 143 mEQ/L (135-145) Potassium Level 4.0 mEQ/L (3.4-4.9) Chloride Level 102 mEQ/L (98-107) Carbon Dioxide Level 26 mEQ/L (20-30) Anion Gap 15 (5-15) Blood Urea Nitrogen 17 mg/dL (7-23) Creatinine 0.8 mg/dL (0.5-0.9) Estimat Glomerular Filtration Rate > 60 mL/min (>60) Glucose Level 115 mg/dL (74-106) Calcium Level 9.3 mg/dL (8.6-10.2) Total Bilirubin < 0.2 mg/dL (0.0-1.2) Aspartate Amino Transf (AST/SGOT) 13 U/L (5-40) Alanine Aminotransferase (ALT/SGPT) 8 U/L (3-33) Alkaline Phosphatase 58 U/L (35-104) Troponin I < 0.30 ng/mL (<=0.30) Total Protein 6.4 g/dL (6.6-8.7) Albumin 3.8 g/dL (3.5-5.2) Globulin 2.6 g/dL Albumin/Globulin Ratio 1.4 (1.0-2.7) Last Vital Signs Date Time Temp Pulse Resp B/P Pulse Ox O2 Delivery O2 Flow Rate FiO2 08/19/16 01:30 98.4 86 18 127/89 100 Room Air 08/18/16 20:35 21 Status: improved Disposition: HOME, SELF-CARE Condition: Stable Scripts Prednisone* (PREDNISONE*) 20 Mg Tablet 20 MG ORAL DAILY, #10 TAB 0 Refills Prov: Pacheco Dunn 08/18/16 Referrals: HERB SHANNON (PCP) Patient Instructions: Acute Bronchitis Pacheco uDnn Aug 20, 2016 07:25
== END 2016-08-19 01:30 | disposition home or self-care (01) ==
LOC: EDBD 18:05 → EMR 18:40
DX: J40 Bronchitis, not specified as acute or chronic (principal); J44.9 Chronic obstructive pulmonary disease, unspecified; Z88.6 Allergy status to analgesic agent
CPT/HCPCS: 36415; 80053; 81001; 81025; 84484; 85025; 85610; 85730; 94640; 94664; 99283; J7620

== ENCOUNTER 2017-12-21 12:10 | Inpatient (IN) | payer MEDICARE, OTHER ==
[~2017-12-21] VITALS: Ht 172.7 cm; Wt 68.0 kg
[~2017-12-21 12:10] MED LIST changes: -DuoNeb 0.5-3(2.5)mg/3ml neb HHN ONE; +PREDNISONE20 MG ORAL
[2017-12-21 12:28] VITALS: BP 115/60
[2017-12-21] MEDS ORDERED: XENAZINE12.5 MG ORAL (13:01)
[2017-12-21] MEDS ORDERED: QUETIAPINE FUMA50 MG ORAL (13:01)
[2017-12-21] MEDS ORDERED: CYMBALTA30 MG ORAL (13:01)
[2017-12-21] MEDS ORDERED: MONTELUKAST SOD10 MG ORAL (13:01)
[2017-12-21] MEDS ORDERED: GABAPENTIN400 MG ORAL (13:01)
[2017-12-21] MEDS ORDERED: TUMS300 MG PO (13:13)
[2017-12-21] MEDS ORDERED: OMEGA 3 1,0001 EACH PO (13:13)
[2017-12-21 13:16] LABS: BILIRUBIN, URINE NEGATIVE (NEGATIVE); COLOR,URINE PALE YELLOW; GLUCOSE, URINE (UA) NEGATIVE (NEGATIVE); KETONES,URINE NEGATIVE (NEGATIVE); LEUKOCYTE ESTERASE ,URINE 2+ (NEGATIVE); NITRITE,URINE NEGATIVE (NEGATIVE); PH,URINE 6 (4.5-8.0); PROTEIN,URINE NEGATIVE (NEGATIVE); UROBILINOGEN,URINE NORMAL MG/DL (0.0-1.0)
[2017-12-21 13:20] LABS: BASOPHILS % (AUTO) 1.8 % (0.0-2.0); HEMATOCRIT 36.1 % (37.0-47.0); HEMOGLOBIN 11.7 G/DL (12.0-16.0); LYMPHOCYTES % (AUTO) 13.7 % (20.0-45.0); MEAN CORPUSCULAR VOLUME 92 FL (80-99); MONOCYTES % (AUTO) 11.3 % (1.0-10.0); NEUTROPHILS % (AUTO) 69.1 % (45.0-75.0); PLATELET COUNT 220 K/UL (150-450); RED BLOOD COUNT 3.94 M/UL (4.20-5.40); RED CELL DISTRIBUTION WIDTH 12.2 % (11.6-14.8)
[2017-12-21 13:24] LABS: INR 0.9 (0.9-1.1)
[2017-12-21 13:28] LABS: ANION GAP 8 mmol/L (5-15); BLOOD UREA NITROGEN 17 mg/dL (7-18); CALCIUM 9.2 MG/DL (8.5-10.1); CARBON DIOXIDE 29 MMOL/L (21-32); CHLORIDE 103 MMOL/L (98-107); CREATININE 0.9 MG/DL (0.55-1.30); POTASSIUM 3.8 MMOL/L (3.5-5.1); SODIUM 140 MMOL/L (136-145)
[2017-12-21 13:30] LABS: APPEARANCE,URINE SLIGHTLY CLOUDY
--- NOTE | 2017-12-21 13:41 | Emergency Room Report ---
History of Present Illness General Chief Complaint: Abdominal Pain Source: Patient, Medical Record Present Illness HPI This patient is here from SNF with repeated vomiting. She thinks due to gastritis. She reports last year she had EGD/colonoscopy and bx. Compliant with meds. This patient has dementia and her history is unreliable. Dr. Alston PMD states she cannot tolerate po and also psych decompensation. Remainder hx limited due to clinical condition. Allergies: Coded Allergies: ASPIRIN (Verified Allergy, Unknown, 06/16/16) CELECOXIB (Verified Allergy, Unknown, 06/16/16) IBUPROFEN (Verified Allergy, Unknown, 06/16/16) Nursing Documentation-[facility] Past Medical History: No History, Except For Hx Cardiac Problems: No Hx COPD: Yes Hx Cancer: No Hx Gastrointestinal Problems: Yes Hx Neurological Problems: No Review of Systems Constitutional: Reports: see HPI Eye: Reports: no symptoms ENT: Reports: no symptoms Respiratory: Reports: no symptoms Cardiovascular: Reports: no symptoms Gastrointestinal: Reports: see HPI, nausea, vomiting Genitourinary: Reports: no symptoms Musculoskeletal: Reports: no symptoms Skin: Reports: no symptoms Psychiatric: Reports: see HPI, prior hx Neurological: Reports: no symptoms Endocrine: Reports: no symptoms Hematologic/Lymphatic: Reports: no symptoms Allergic: Reports: no symptoms Physical Exam Vital Signs Date Time Temp Pulse Resp B/P (MAP) Pulse Ox O2 Delivery O2 Flow Rate FiO2 12/21/17 12:10 98.1 66 18 115/60 99 Room Air 98.1 Sp02 EP Interpretation: reviewed, normal General Appearance: normal inspection, well appearing, no apparent distress, alert, GCS 15, non-toxic Head: normocephalic, atraumatic Eyes: bilateral eye normal inspection, bilateral eye PERRL, bilateral eye EOMI ENT: normal ENT inspection, hearing grossly normal, normal pharynx, no angioedema, normal voice, moist mucus membranes Neck: normal inspection, full range of motion, supple, no meningismus, no bony tend Respiratory: normal inspection, lungs clear, normal breath sounds, no rhonchi, no respiratory distress, no retraction, no accessory muscle use, no wheezing Cardiovascular #1: normal inspection, regular rate, rhythm, no edema Gastrointestinal: normal inspection, normal bowel sounds, non tender, soft, no mass, non-distended Musculoskeletal: gait/station normal, normal range of motion Neurologic: normal inspection, alert, oriented x3, responsive, motor strength/ tone normal Psychiatric: no suicidal/homicidal ideation, no delusions, anxious, other - [id number], flat Suicide Risk Assessment: Suicidal Ideation: No Had intent to initiate attempt: No Pt's plan for suicide attempt: No Has means to complete attempt: No Skin: normal inspection, normal color, no rash, warm/dry Medical Decision Making Reaction to Intervention: No change Diagnostic Impression: Primary Impression: Abdominal pain ER Course Dr. Alston made the admission decision. Last Vital Signs Date Time Temp Pulse Resp B/P (MAP) Pulse Ox O2 Delivery O2 Flow Rate FiO2 12/21/17 12:28 98.1 89 18 115/60 99 Room Air 98.1 Disposition: ADMITTED INPATIENT Condition: Stable Referrals: Antonio Alston DO (PCP) Ren Bryan M.D. Dec 21, 2017 13:41
[2017-12-21 13:42] LABS: ALANINE AMINOTRANSFERASE 39 U/L (12-78); ALBUMIN 3.2 G/DL (3.4-5.0); ALBUMIN/GLOBULIN RATIO 0.8 (1.0-2.7); ALKALINE PHOSPHATASE 87 U/L (46-116); ASPARTATE AMINO TRANSFERASE 25 U/L (15-37); BILIRUBIN,TOTAL 0.3 MG/DL (0.2-1.0)
[2017-12-21 14:21] VITALS: BP 120/68
[2017-12-21] MEDS ORDERED: Morphine Sulfate 2mg/ml Inj IVP PRN (14:45)
[2017-12-21] MEDS ORDERED: Mylanta II UD 30ml ORAL PRN (14:45)
[2017-12-21] MEDS ORDERED: Nitroglycerin Subl 0.4mg tab SL PRN (14:45)
[2017-12-21 15:07] VITALS: BP 127/80
--- NOTE | 2017-12-21 16:18 | Diagnostic Imaging Report ---
Indication: Chest pain Technique: One view of the chest Comparison: 06/19/2016 Findings: There is atelectasis at the left lung base. Lungs are hyperinflated. Lungs and pleural spaces are otherwise clear. The heart is borderline enlarged Impression: Mild hyperinflation, could indicate COPD changes Left basilar atelectasis Borderline cardiomegaly
[2017-12-21] MEDS ORDERED: NovoLOG Insulin Flexpen SUBQ SCH (16:30)
--- NOTE | 2017-12-21 16:38 | GI Initial Consult Note ---
History of Present Illness General Date patient seen: Dec 21, 2017 Time patient seen: 16:28 Reason for Hospitalization: Abdominal Pain Referring physician: HERB SHANNON Reason for Consultation: ABDOMINAL PAIN Present Illness HPI This patient is here from SNF with repeated vomiting. She thinks due to gastritis. She reports last year she had EGD/colonoscopy and bx. Compliant with meds. This patient has dementia and her history is unreliable. Dr. Shannon PMD states she cannot tolerate po and also psych decompensation. Remainder hx limited due to clinical condition. GI consulted for abdominal pain. This is a 67 year old female patient with history of chronic pain syndrome, fibromyalgia whom undergone recent laparoscopic appendectomy on 08/30/17. Has c/o of diffused muscle pain and abdominal pain. States she has a history of IBS, gastritis vs gastric ulcer with recent endoscopy / colonoscopy last year. Stated she had episodes of emesis and diarrhea. Home Meds Active Scripts Prednisone* (PREDNISONE*) 20 Mg Tablet, 20 MG ORAL DAILY, #10 TAB 0 Refills Prov:Pacheco Dunn MD 08/18/16 Methylprednisolone* (MEDROL*) 4 Mg Tablet, 4 MG ORAL DAILY, #10 TAB 0 Refills Prov:Marce Jean NP 06/23/16 Reported Medications [place]-3 Fatty Acids/Fish Oil (OMEGA 3 1,000 MG SOFTGEL) 1 Each Capsule, 2 EACH PO DAILY, CAP 12/21/17 Calcium Carbonate (TUMS) 300 Mg Tab.chew, 500 MG PO BID, TAB 12/21/17 Gabapentin* (GABAPENTIN*) 400 Mg Capsule, 400 MG ORAL TWICE A DAY, CAP 0 Refills 12/21/17 Tetrabenazine (XENAZINE) 12.5 Mg Tablet, 12.5 MG ORAL TID for 30 Days, MG 0 Refills 12/21/17 Montelukast Sodium* (MONTELUKAST SODIUM*) 10 Mg Tablet, 10 MG ORAL DAILY, TAB 12/21/17 Duloxetine Hcl* (CYMBALTA*) 30 Mg Capsule.dr 30 MG ORAL DAILY, CAP 12/21/17 Quetiapine Fumarate* (QUETIAPINE FUMARATE*) 50 Mg Tablet, 50 MG ORAL DAILY, TAB 12/21/17 Levofloxacin (LEVOFLOXACIN*) 500 Mg Tablet, 500 MG ORAL DAILY, TAB 06/21/16 Methylprednisolone Sod Succ/Pf (SOLU-MEDROL (PF) 40 MG VIAL) 40 Mg/1 Ml Vial, 60 MG IJ DAILY, VIAL 06/21/16 Temazepam* (RESTORIL*) 15 Mg Capsule, 15 ML ORAL EVERY 12 HOURS, CAP 06/21/16 Promethazine HCl/Codeine (Prometh-Codein 6.25-10 mg/5 ml) 5 Ml Syrup, 5 ML PO EVERY 6 HOURS PRN for For Cough, ML 06/21/16 Morphine Sulfate (Morphine Sulfate) 4 Mg/1 Ml Syringe, 2 MG IJ EVERY 4 HOURS PRN for Severe Pain (Pain Scale 7-10), EA 06/21/16 Lorazepam (Lorazepam) 2 Mg/1 Ml Syringe, 0.5 MG IV Q4H PRN for For Anxiety, EA 06/21/16 Dextrose 50 % In Water (DEXTROSE 50%-WATER VIAL) 50 Ml Vial, 50 ML IV PRN PRN for Hypoglycemia, VIAL 06/21/16 Theophylline (THEODUR*) 100 Mg Tab.er.12h, 100 MG ORAL EVERY 12 HOURS, #30 TAB 0 Refills 06/21/16 Ondansetron Hcl/Pf (ONDANSETRON 4 MG/2 ML AMPULE) 4 Mg/2 Ml Ampul, 4 MG IJ EVERY 6 HOURS PRN for Nausea & Vomiting, AMP 06/21/16 Heparin Sod (Porcine) (HEPARIN SODIUM*) 5 000/1 Ml Vial, 5000 UNITS SUBQ EVERY 12 HOURS, VIAL 06/21/16 Memantine Hcl* (NAMENDA*) 5 Mg Tablet, 5 MG ORAL TWICE A DAY, TAB 06/21/16 Insulin Aspart* (NOVOLOG*) 100 Unit/1 Ml Insuln.pen, 0 SUBQ AC+HS, #1 EA 0 Refills 06/21/16 Nitroglycerin (NITROGLYCERIN) 0.4 Mg Tab.subl, 0.4 MG SL [id number] PRN for CHEST PAIN, TAB 06/21/16 Benztropine Mesylate* (COGENTIN*) 0.5 Mg Tablet, 1 MG PO, TAB 06/16/16 Ondansetron Odt* (ZOFRAN ODT*) 4 Mg Tab.rapdis, 4 MG ORAL Q8H PRN for Nausea & Vomiting, #30 TAB 0 Refills 06/16/16 Olanzapine* (ZYPREXA*) 10 Mg Tablet, 15 MG ORAL DAILY, #30 TAB 0 Refills 06/16/16 Olanzapine* (ZYPREXA*) 10 Mg Tablet, 10 MG ORAL DAILY, #30 TAB 0 Refills 06/16/16 Lorazepam* (ATIVAN*) 1 Mg Tablet, 0.5 MG ORAL EVERY 6 HOURS, TAB 06/16/16 Lorazepam* (ATIVAN*) 1 Mg Tablet, 1 MG ORAL EVERY 6 HOURS, TAB 06/16/16 Fluticasone Propionate (Flonase Allergy Relief) 9.9 Ml [place].susp, 9.9 ML NS 06/16/16 Memantine Hcl* (NAMENDA*) 5 Mg Tablet, 5 MG ORAL TWICE A DAY, TAB 06/16/16 Vitamin D (Vitamin D3) 400 Unit Tablet, 1000 UNITS ORAL DAILY, TAB 06/16/16 Loratadine (CLARITIN) 10 Mg Capsule, 10 MG ORAL DAILY, CAP 06/16/16 Loratadine (CLARITIN) 10 Mg Capsule, 10 MG ORAL DAILY, CAP 06/16/16 Med list reviewed/reconciled: Yes Allergies: Coded Allergies: ASPIRIN (Verified Allergy, Unknown, 06/16/16) CELECOXIB (Verified Allergy, Unknown, 06/16/16) IBUPROFEN (Verified Allergy, Unknown, 06/16/16) Patient History Limited by: medical condition History Provided By: Patient, Medical Record PMH Narrative DM COPD IBS Gastric Ulcer Endocarditis Schizophrenia Fibromyalgia Anxiety Past Surgical History: appendectomy Social History: Denies: smoking, alcohol use, drug use, other Review of Systems All Other Systems: negative except mentioned in HPI Physical Exam Vital Signs Date Time Temp Pulse Resp B/P (MAP) Pulse Ox O2 Delivery O2 Flow Rate FiO2 12/21/17 12:10 98.1 66 18 115/60 99 Room Air 98.1 Sp02 EP Interpretation: reviewed, normal Labs Laboratory Tests Test 12/21/17 13:00 White Blood Count 7.0 K/UL (4.8-10.8) Red Blood Count 3.94 M/UL (4.20-5.40) L Hemoglobin 11.7 G/DL (12.0-16.0) L Hematocrit 36.1 % (37.0-47.0) L Mean Corpuscular Volume 92 FL (80-99) Mean Corpuscular Hemoglobin 29.8 PG (27.0-31.0) Mean Corpuscular Hemoglobin Concent 32.6 G/DL (32.0-36.0) Red Cell Distribution Width 12.2 % (11.6-14.8) Platelet Count 220 K/UL (150-450) Mean Platelet Volume 5.5 FL (6.5-10.1) L Neutrophils (%) (Auto) 69.1 % (45.0-75.0) Lymphocytes (%) (Auto) 13.7 % (20.0-45.0) L Monocytes (%) (Auto) 11.3 % (1.0-10.0) H Eosinophils (%) (Auto) 4.0 % (0.0-3.0) H Basophils (%) (Auto) 1.8 % (0.0-2.0) Prothrombin Time 10.0 SEC (9.30-11.50) Prothromb Time International Ratio 0.9 (0.9-1.1) Urine Color Pale yellow Urine Appearance Slightly cloudy Urine pH 6 (4.5-8.0) Urine Specific [place] 1.005 (1.005-1.035) Urine Protein Negative (NEGATIVE) Urine Glucose (UA) Negative (NEGATIVE) Urine Ketones Negative (NEGATIVE) Urine Occult Blood 1+ (NEGATIVE) H Urine Nitrite Negative (NEGATIVE) Urine Bilirubin Negative (NEGATIVE) Urine Urobilinogen Normal MG/DL (0.0-1.0) Urine Leukocyte Esterase 2+ (NEGATIVE) H Urine RBC 2-4 /HPF (0 - 2) H Urine WBC 5-10 /HPF (0 - 2) H Urine Squamous Epithelial Cells Few /LPF (NONE/OCC) Urine Bacteria Few /HPF (NONE) Sodium Level 140 MMOL/L (136-145) Potassium Level 3.8 MMOL/L (3.5-5.1) Chloride Level 103 MMOL/L (98-107) Carbon Dioxide Level 29 MMOL/L (21-32) Anion Gap 8 mmol/L (5-15) Blood Urea Nitrogen 17 mg/dL (7-18) Creatinine 0.9 MG/DL (0.55-1.30) Estimat Glomerular Filtration Rate > 60 mL/min (>60) Glucose Level 86 MG/DL (74-106) Calcium Level 9.2 MG/DL (8.5-10.1) Total Bilirubin 0.3 MG/DL (0.2-1.0) Aspartate Amino Transf (AST/SGOT) 25 U/L (15-37) Alanine Aminotransferase (ALT/SGPT) 39 U/L (12-78) Alkaline Phosphatase 87 U/L (46-116) Troponin I 0.000 ng/mL (0.000-0.056) Pro-B-Type Natriuretic Peptide 357 pg/mL (0-125) H Total Protein 7.2 G/DL (6.4-8.2) Albumin 3.2 G/DL (3.4-5.0) L Globulin 4.0 g/dL Albumin/Globulin Ratio 0.8 (1.0-2.7) L Lipase 120 U/L (73-393) Urine Opiates Screen Negative (NEGATIVE) Urine Barbiturates Screen Negative (NEGATIVE) Phencyclidine (PCP) Screen Negative (NEGATIVE) Urine Amphetamines Screen Negative (NEGATIVE) Urine Benzodiazepines Screen Negative (NEGATIVE) Urine Cocaine Screen Negative (NEGATIVE) Urine Marijuana (THC) Screen Negative (NEGATIVE) General Appearance: well appearing, no apparent distress, alert Head: normocephalic EENT: PERRL/EOMI, normal ENT inspection Neck: supple Respiratory: normal breath sounds, no respiratory distress Cardiovascular: normal rate Gastrointestinal: normal inspection, non tender, soft, normal bowel sounds, non -distended Rectal: deferred Genitourinary: no CVA tenderness Musculoskeletal: normal inspection, back normal Neurologic: normal inspection, alert, responsive Psychiatric: memory normal Skin: normal inspection, normal color, no rash, warm/dry, palpation normal, well hydrated Lymphatic: normal inspection, no adenopathy Current Medications Current Medications Medications (Trade) Dose Ordered Sig/[place] Route PRN Reason Start Time Stop Time Status Last Admin Dose Admin Acetaminophen (Tylenol) 650 mg Q4H PRN ORAL T>100.5 12/21/17 14:45 01/20/18 14:44 Al Hydroxide/Mg Hydroxide (Mylanta II) 30 ml Q6H PRN ORAL dyspepsia 12/21/17 14:45 01/20/18 14:44 Dextrose (Dextrose 50%) 25 ml PRN IV Hypoglycemia 12/21/17 16:15 01/20/18 16:14 Dextrose (Dextrose 50%) 50 ml PRN IV hypoglycemia 12/21/17 16:15 01/20/18 16:14 Diphenhydramine HCl (Benadryl) 25 mg Q6H PRN ORAL Itching/Pruritis 12/21/17 14:45 01/20/18 14:44 Duloxetine HCl (Cymbalta) 30 mg DAILY ORAL 12/22/17 09:00 01/21/18 08:59 Famotidine (Pepcid I.v.) 20 mg Q12HR IVP 12/21/17 14:00 12/21/17 18:00 12/21/17 13:56 Gabapentin (Neurontin) 400 mg TWICE A DAY ORAL 12/21/17 18:00 01/20/18 17:59 Heparin Sodium (Porcine) (Heparin 5000 units/ml) 5,000 units EVERY 12 HOURS SUBQ 12/21/17 21:00 01/20/18 20:59 Insulin Aspart (NovoLOG) BEFORE MEALS AND HS SUBQ 12/21/17 16:30 01/20/18 16:29 Memantine (Namenda) 5 mg TWICE A DAY ORAL 12/21/17 18:00 01/20/18 17:59 Montelukast Sodium (Singulair) 10 mg DAILY ORAL 12/22/17 09:00 01/21/18 08:59 Morphine Sulfate (Morphine Sulfate) 2 mg Q4H PRN IVP Severe Pain (Pain Scale 7-10) 12/21/17 14:45 12/28/17 14:44 Nitroglycerin (Ntg) 0.4 mg Q5M X 3 DOSES PRN SL Prn Chest Pain 12/21/17 14:45 01/20/18 14:44 Olanzapine (ZyPREXA) 15 mg QHS ORAL 12/21/17 21:00 01/20/18 20:59 Ondansetron HCl (Zofran) 4 mg Q6H PRN IVP Nausea & Vomiting 12/21/17 14:45 01/20/18 14:44 Polyethylene Glycol (Miralax) 17 gm HSPRN PRN ORAL Constipation 12/21/17 21:00 01/20/18 20:59 Quetiapine Fumarate (SEROquel) 50 mg QHS ORAL 12/21/17 21:00 01/20/18 20:59 Sodium Chloride 1,000 ml @ 50 mls/hr Q20H IV 12/21/17 17:00 01/20/18 16:59 Temazepam (Restoril) 15 mg HSPRN PRN ORAL Insomnia 12/21/17 21:00 12/28/17 20:59 Theophylline (Norberto-Dur) 100 mg EVERY 12 HOURS ORAL 12/21/17 21:00 01/20/18 20:59 GI: Plan Problems: (1) Gastric ulcer (2) GERD (gastroesophageal reflux disease) (3) PUD (peptic ulcer disease) (4) Abdominal pain (5) Dementia (6) Anemia (7) IBS (irritable bowel syndrome) Plan will consider endoscopy if abdominal pain not controlled with medical management dc H2B, start PPI + carafate monitor for diarrhea, send stool studies/cdiff if present zofran prn okay to advance diet after abdominal U/S anemia work up OB stool r/o GI bleed monitor H&H, prn transfusions bowel regime fu labs Discussed with Dr. Crump. Thank you for this patient referral, we will follow. The patient was seen and examined at bedside and all new and available data was reviewed in the patients chart. I agree with the above findings, impression and plan. (Patient seen earlier today. Signature stamp does not reflect patient encounter time.). - MD Terese Helton,[facility] [employer] Dec 21, 2017 16:38
[2017-12-21] MEDS: Memantine 5 MG TAB ORAL SCH (17:59)
[2017-12-21] MEDS ORDERED: Sucralfate 1gm tab ORAL SCH (18:00)
[2017-12-21 20:00] VITALS: BP 129/66
[2017-12-21] MEDS: Theophylline ER 100mg ORAL SCH (20:32)
[2017-12-21] MEDS: Heparin 5000 units/ml inj SUBQ SCH (20:33)
[2017-12-21] MEDS ORDERED: Miralax 17gm pkt ORAL PRN (21:00)
--- NOTE | 2017-12-21 21:45 | History and Physical Report ---
DATE OF ADMISSION: 12/21/2017 TIME: 2 p.m. CONSULTANTS: 1. Ortega Crump M.D. 2. Gabino Almanza M.D. 3. Lizzie Haile M.D. 4. Nikolai Lagunas M.D. CHIEF COMPLAINT: Nausea, vomiting, headache, failure to thrive and weakness. BRIEF HISTORY: This is a 67-year-old female from [facility], presented with abdominal pain, nausea, and vomiting. She has some dizziness, headache as well and was brought to [facility] and being admitted currently. Currently, calm resting in the ER gurney, slight dizzy and weak and nauseous. No complaint. REVIEW OF SYSTEMS: No chest pain. Slight short of breath. Slight nausea and vomiting. No diarrhea. PAST MEDICAL HISTORY: Weakness, failure to thrive, psychiatric history and dementia. PAST SURGICAL HISTORY: Appendectomy. MEDICATIONS: Famotidine and aspirin. ALLERGIES: Aspirin, ibuprofen and . SOCIAL HISTORY: No smoking. No alcohol. No intravenous drug abuse. FAMILY HISTORY: Noncontributory. PHYSICAL EXAMINATION: GENERAL: Calm in bed, oriented x2, in no acute distress. VITAL SIGNS: Temperature is 98 degrees, pulse 88, respirations 18, and blood pressure 120/68. CARDIOVASCULAR: No murmur. LUNGS: Distant and clear. ABDOMEN: Bowel sounds positive. Nontender. Nondistended. EXTREMITIES: No cyanosis, clubbing, or edema. NEUROLOGIC: The patient moves all extremities, slightly weak. LABORATORY AND DIAGNOSTIC DATA: Labs show hemoglobin 7.7, otherwise CBC is normal. BMP is normal. BNP is 378. Albumin 3.2. Lipase 120. INR is 0.9. Urine toxicology is negative. Urinalysis, 2+ leukocyte esterase. ASSESSMENT: Nausea, vomiting, abdominal pain, headache, dizziness, anemia, UTI, failure to thrive, weakness, psychiatric history and dementia. PLAN: 1. Continue premeds. 2. IV fluid. 3. Antibiotics per Infectious Disease. 4. OT/PT. 5. Dietary evaluation. 6. Dr. Crump, Dr. Almanza, Dr. Haile, Dr. Lagunas, Dr. Bacon and Dr. Cruz to followup. 7. We will continue to follow this patient medically. 8. CBC and BMP in the morning. Antonio Alston D.O. DR: JONNY JOB#: [id number] CC:
[2017-12-22] VITALS: BP 113/65
[2017-12-22 04:00] VITALS: BP 101/64
[2017-12-22 07:52] LABS: BASOPHILS % (AUTO) 1.3 % (0.0-2.0); EOSINOPHILS % (AUTO) 4.5 % (0.0-3.0); HEMATOCRIT 35.3 % (37.0-47.0); HEMOGLOBIN 11.4 G/DL (12.0-16.0); LYMPHOCYTES % (AUTO) 12.2 % (20.0-45.0); MEAN CORPUSCULAR VOLUME 91 FL (80-99); MONOCYTES % (AUTO) 10.4 % (1.0-10.0); NEUTROPHILS % (AUTO) 71.7 % (45.0-75.0); PLATELET COUNT 187 K/UL (150-450); RED BLOOD COUNT 3.86 M/UL (4.20-5.40); RED CELL DISTRIBUTION WIDTH 12.3 % (11.6-14.8); WHITE BLOOD COUNT 6.2 K/UL (4.8-10.8)
[2017-12-22 08:00] VITALS: BP 109/51
[2017-12-22] MEDS: Memantine 5 MG TAB ORAL SCH ×2 (08:10→17:48)
[2017-12-22] MEDS: Montelukast 10mg tablet ORAL SCH (08:10)
[2017-12-22] MEDS: Theophylline ER 100mg ORAL SCH ×2 (08:10→21:46)
[2017-12-22] MEDS: Heparin 5000 units/ml inj SUBQ SCH ×2 (08:13→21:48)
[2017-12-22 08:15] LABS: ALANINE AMINOTRANSFERASE 33 U/L (12-78); ALBUMIN 2.7 G/DL (3.4-5.0); ALBUMIN/GLOBULIN RATIO 0.8 (1.0-2.7); ALKALINE PHOSPHATASE 84 U/L (46-116); ANION GAP 5 mmol/L (5-15); ASPARTATE AMINO TRANSFERASE 21 U/L (15-37); BILIRUBIN,TOTAL 0.4 MG/DL (0.2-1.0); BLOOD UREA NITROGEN 14 mg/dL (7-18); CALCIUM 8.7 MG/DL (8.5-10.1); CARBON DIOXIDE 30 MMOL/L (21-32); CHLORIDE 108 MMOL/L (98-107); CREATININE 0.8 MG/DL (0.55-1.30); POTASSIUM 3.9 MMOL/L (3.5-5.1); SODIUM 143 MMOL/L (136-145)
[2017-12-22] MEDS: DULoxetine 30mg cap ORAL SCH (08:27)
--- NOTE | 2017-12-22 10:40 | Consultation ---
Consult Note Consult Note NEUROLOGY CONSULTATION: Full note dictated #[id number] Ms. Ruth Bishop is a 67 y/o, RH, CF with a PH of an undefined psychiatric illness, dementia, generalized weakness, fibromyalgia, arthritis, a neuropathy, and "Jean Marie's Disease" diagnosed 1 year ago at [facility]. She was hospitalized on 12/21/17 for failure to thrive, gastrointestinal problems and dizziness. I was called in to evaluate her dizziness. ON EXAM: Mild problems with orientation and recent memory. Decreased position in toes. Globally diminished DTRs. OBL, limb and trunk dystonia and dyskinesia. IMPRESSION: 1. Dizziness - is a lightheaded feeling when she stands up from a sitting or lying down position. 2. The dystonic/dyskinetic movement disorder could either be due to a drug-induced etiology or if the patient is correct HD. 3. Neuropathic process - etiology ? REC: 1. W/U neuropathy. 2. Confirm diagnosis of HD - if correct consider treatment with tetrabenazine. Nikolai Lagunas M.D., M.S.P.H. NIKOLAI LAGUNAS Dec 22, 2017 10:40
--- NOTE | 2017-12-22 11:04 | GI Progress Note ---
Assessment/Plan Problems: (1) IBS (irritable bowel syndrome) ICD Codes: K58.9 - Irritable bowel syndrome without diarrhea SNOMED: 28864925 (2) Anemia ICD Codes: D64.9 - Anemia, unspecified SNOMED: 768510614 (3) GERD (gastroesophageal reflux disease) ICD Codes: K21.9 - Gastro-esophageal reflux disease without esophagitis SNOMED: 834859552 (4) Abdominal pain ICD Codes: R10.9 - Unspecified abdominal pain SNOMED: 96104765 (5) PUD (peptic ulcer disease) ICD Codes: K27.9 - Peptic ulcer, site unspecified, unspecified as acute or chronic, without hemorrhage or perforation SNOMED: 38984652 (6) Dementia ICD Codes: F03.90 - Unspecified dementia without behavioral disturbance SNOMED: 12874181 (7) Gastric ulcer ICD Codes: K25.9 - Gastric ulcer, unspecified as acute or chronic, without hemorrhage or perforation SNOMED: 824789324 Status: stable Status Narrative Discussed with Dr. Crump. Assessment/Plan will consider endoscopy if abdominal pain not controlled with medical management adv to regular diet PPI + carafate monitor for diarrhea, send stool studies/cdiff if present fu abdominal U/S zofran prn anemia work up OB stool r/o GI bleed monitor H&H, prn transfusions bowel regime fu labs The patient was seen and examined at bedside and all new and available data was reviewed in the patients chart. I agree with the above findings, impression and plan. (Patient seen earlier today. Signature stamp does not reflect patient encounter time.). - Ortega Crump MD Subjective Gastrointestinal/Abdominal: Reports: no symptoms Objective Last 24 Hour Vital Signs Date Time Temp Pulse Resp B/P (MAP) Pulse Ox O2 Delivery O2 Flow Rate FiO2 12/22/17 08:30 Room Air 12/22/17 08:00 99.0 78 18 109/51 (70) 90 99.0 12/22/17 04:00 99.3 73 20 101/64 (76) 91 99.3 12/22/17 00:00 98.3 71 20 113/65 (81) 92 98.3 12/21/17 21:00 Room Air 12/21/17 20:00 99.2 68 20 129/66 (87) 94 99.2 12/21/17 19:39 Room Air 12/21/17 15:30 98.1 79 21 127/80 100 Room Air 98.1 12/21/17 15:07 98.1 79 21 127/80 100 Room Air 98.1 12/21/17 14:21 98.1 88 18 120/68 100 Room Air 98.1 12/21/17 12:28 98.1 89 18 115/60 99 Room Air 98.1 12/21/17 12:10 98.1 66 18 115/60 99 Room Air 98.1 Intake and Output 12/21/17 12/22/17 19:00 07:00 Intake Total 50 ml 450 ml Balance 50 ml 450 ml Intake IV Total 50 ml 450 ml # Voids 1 2 Laboratory Tests Test 12/21/17 13:00 12/22/17 07:20 12/22/17 07:50 White Blood Count 7.0 K/UL (4.8-10.8) 6.2 K/UL (4.8-10.8) Red Blood Count 3.94 M/UL (4.20-5.40) L 3.86 M/UL (4.20-5.40) L Hemoglobin 11.7 G/DL (12.0-16.0) L 11.4 G/DL (12.0-16.0) L Hematocrit 36.1 % (37.0-47.0) L 35.3 % (37.0-47.0) L Mean Corpuscular Volume 92 FL (80-99) 91 FL (80-99) Mean Corpuscular Hemoglobin 29.8 PG (27.0-31.0) 29.4 PG (27.0-31.0) Mean Corpuscular Hemoglobin Concent 32.6 G/DL (32.0-36.0) 32.2 G/DL (32.0-36.0) Red Cell Distribution Width 12.2 % (11.6-14.8) 12.3 % (11.6-14.8) Platelet Count 220 K/UL (150-450) 187 K/UL (150-450) Mean Platelet Volume 5.5 FL (6.5-10.1) L 5.3 FL (6.5-10.1) L Neutrophils (%) (Auto) 69.1 % (45.0-75.0) 71.7 % (45.0-75.0) Lymphocytes (%) (Auto) 13.7 % (20.0-45.0) L 12.2 % (20.0-45.0) L Monocytes (%) (Auto) 11.3 % (1.0-10.0) H 10.4 % (1.0-10.0) H Eosinophils (%) (Auto) 4.0 % (0.0-3.0) H 4.5 % (0.0-3.0) H Basophils (%) (Auto) 1.8 % (0.0-2.0) 1.3 % (0.0-2.0) Prothrombin Time 10.0 SEC (9.30-11.50) 10.4 SEC (9.30-11.50) Prothromb Time International Ratio 0.9 (0.9-1.1) 1.0 (0.9-1.1) Urine Color Pale yellow Urine Appearance Slightly cloudy Urine pH 6 (4.5-8.0) Urine Specific [place] 1.005 (1.005-1.035) Urine Protein Negative (NEGATIVE) Urine Glucose (UA) Negative (NEGATIVE) Urine Ketones Negative (NEGATIVE) Urine Occult Blood 1+ (NEGATIVE) H Urine Nitrite Negative (NEGATIVE) Urine Bilirubin Negative (NEGATIVE) Urine Urobilinogen Normal MG/DL (0.0-1.0) Urine Leukocyte Esterase 2+ (NEGATIVE) H Urine RBC 2-4 /HPF (0 - 2) H Urine WBC 5-10 /HPF (0 - 2) H Urine Squamous Epithelial Cells Few /LPF (NONE/OCC) Urine Bacteria Few /HPF (NONE) Sodium Level 140 MMOL/L (136-145) 143 MMOL/L (136-145) Potassium Level 3.8 MMOL/L (3.5-5.1) 3.9 MMOL/L (3.5-5.1) Chloride Level 103 MMOL/L (98-107) 108 MMOL/L (98-107) H Carbon Dioxide Level 29 MMOL/L (21-32) 30 MMOL/L (21-32) Anion Gap 8 mmol/L (5-15) 5 mmol/L (5-15) Blood Urea Nitrogen 17 mg/dL (7-18) 14 mg/dL (7-18) Creatinine 0.9 MG/DL (0.55-1.30) 0.8 MG/DL (0.55-1.30) Estimat Glomerular Filtration Rate > 60 mL/min (>60) > 60 mL/min (>60) Glucose Level 86 MG/DL (74-106) 93 MG/DL (74-106) Calcium Level 9.2 MG/DL (8.5-10.1) 8.7 MG/DL (8.5-10.1) Total Bilirubin 0.3 MG/DL (0.2-1.0) 0.4 MG/DL (0.2-1.0) Aspartate Amino Transf (AST/SGOT) 25 U/L (15-37) 21 U/L (15-37) Alanine Aminotransferase (ALT/SGPT) 39 U/L (12-78) 33 U/L (12-78) Alkaline Phosphatase 87 U/L (46-116) 84 U/L (46-116) Troponin I 0.000 ng/mL (0.000-0.056) Pro-B-Type Natriuretic Peptide 357 pg/mL (0-125) H Total Protein 7.2 G/DL (6.4-8.2) 6.3 G/DL (6.4-8.2) L Albumin 3.2 G/DL (3.4-5.0) L 2.7 G/DL (3.4-5.0) L Globulin 4.0 g/dL 3.6 g/dL Albumin/Globulin Ratio 0.8 (1.0-2.7) L 0.8 (1.0-2.7) L Pending Lipase 120 U/L (73-393) 128 U/L (73-393) Urine Opiates Screen Negative (NEGATIVE) Urine Barbiturates Screen Negative (NEGATIVE) Phencyclidine (PCP) Screen Negative (NEGATIVE) Urine Amphetamines Screen Negative (NEGATIVE) Urine Benzodiazepines Screen Negative (NEGATIVE) Urine Cocaine Screen Negative (NEGATIVE) Urine Marijuana (THC) Screen Negative (NEGATIVE) Activated Partial Thromboplast Time 30 SEC (23-33) Hemoglobin A1c 5.9 % (4.3-6.0) Amylase Level 53 U/L (25-115) Thyroid Stimulating Hormone (TSH) 1.262 uiU/mL (0.358-3.740) Erythrocyte Sedimentation Rate Pending Total Protein (PEP) Pending Albumin (PEP) Pending Globulin (PEP) Pending [id number]-[id number] Pending Vklqs-2-Vzgojjjou Pending Beta Globulins Pending Beta Gamma Globulin Pending PEP Abnormal Protein Bands Pending Protein Electrophoresis Interpret Pending Vitamin B12 Level Pending Vitamin D 25-Hydroxy Pending 25-Hydroxy Vitamin D2 Pending 25-Hydroxy Vitamin D3 Pending Folate Pending Rapid Plasma Reagin Pending Height (Feet): 5 Height (Inches): 8.00 Weight (Pounds): 150 General Appearance: WD/WN, no apparent distress, alert Cardiovascular: normal rate Respiratory/Chest: normal breath sounds, no respiratory distress Abdominal Exam: normal bowel sounds, non tender, soft Extremities: normal range of motion, non-tender Agusto Gudino NP Dec 22, 2017 11:04
--- NOTE | 2017-12-22 11:20 | Diagnostic Imaging Report ---
Indication: Abdominal pain and vomiting Technique: Little-scale and duplex images of the upper abdomen were obtained Comparison: none Findings: Gallbladder is unremarkable, without stones, wall thickening, nor pericholecystic fluid. Sonographic Arango's sign is negative. Common bile duct measures 5 mm in diameter. No intrahepatic biliary ductal dilatation. Liver demonstrates normal echogenicity, no focal abnormality. Portal vein and hepatic veins are patent. Pancreas is unremarkable. Spleen is unremarkable. Left kidney measures 1.8 cm in length. Right kidney measures 10.1 cm length. Both kidneys demonstrate normal echogenicity. There is no hydronephrosis. No focal abnormality . Non-aneurysmal abdominal aorta . Impression: Negative
--- NOTE | 2017-12-22 11:22 | Consultation ---
History of Present Illness General Date patient seen: Dec 22, 2017 Chief Complaint: Abdominal Pain Referring physician: HERB SHANNON Reason for Consultation: ABDOMINAL PAIN Present Illness HPI 67 year old female with hx of psychiatric disorder, from [facility] presented to ER with repeated vomiting. She thinks due to gastritis. She reports last year she had EGD/colonoscopy and bx. Pt is admitted for further work up. Allergies: Coded Allergies: ASPIRIN (Verified Allergy, Unknown, 06/16/16) CELECOXIB (Verified Allergy, Unknown, 06/16/16) IBUPROFEN (Verified Allergy, Unknown, 06/16/16) Medication History Scheduled Calcium Carbonate (Tums), 500 MG PO BID, (Reported) Duloxetine Hcl* (Cymbalta*), 30 MG ORAL DAILY, (Reported) Gabapentin* (Gabapentin*), 400 MG ORAL TWICE A DAY, (Reported) Heparin Sod (Porcine) (Heparin Sodium*), 5,000 UNITS SUBQ EVERY 12 HOURS, ( Reported) Insulin Aspart* (Novolog*), 0 SUBQ AC+HS, (Reported) Levofloxacin (Levofloxacin*), 500 MG ORAL DAILY, (Reported) Loratadine (Claritin), 10 MG ORAL DAILY, (Reported) Loratadine (Claritin), 10 MG ORAL DAILY, (Reported) Lorazepam* (Ativan*), 1 MG ORAL EVERY 6 HOURS, (Reported) Lorazepam* (Ativan*), 0.5 MG ORAL EVERY 6 HOURS, (Reported) Memantine Hcl* (Namenda*), 5 MG ORAL TWICE A DAY, (Reported) Memantine Hcl* (Namenda*), 5 MG ORAL TWICE A DAY, (Reported) Methylprednisolone Sod Succ/Pf (Solu-Medrol (Pf) 40 Mg Vial), 60 MG IJ DAILY, ( Reported) Methylprednisolone* (Medrol*), 4 MG ORAL DAILY Montelukast Sodium* (Montelukast Sodium*), 10 MG ORAL DAILY, (Reported) Olanzapine* (Zyprexa*), 10 MG ORAL DAILY, (Reported) Olanzapine* (Zyprexa*), 15 MG ORAL DAILY, (Reported) [place]-3 Fatty Acids/Fish Oil ([place] 3 1,000 Mg Softgel), 2 EACH PO DAILY, ( Reported) Prednisone* (Prednisone*), 20 MG ORAL DAILY Quetiapine Fumarate* (Quetiapine Fumarate*), 50 MG ORAL DAILY, (Reported) Temazepam* (Restoril*), 15 ML ORAL EVERY 12 HOURS, (Reported) Tetrabenazine (Xenazine), 12.5 MG ORAL TID, (Reported) Theophylline (Theodur*), 100 MG ORAL EVERY 12 HOURS, (Reported) Vitamin D (Vitamin D3), 1,000 UNITS ORAL DAILY, (Reported) Scheduled PRN Dextrose 50 % In Water (Dextrose 50%-Water Vial), 50 ML IV PRN PRN for Hypoglycemia, (Reported) Lorazepam (Lorazepam), 0.5 MG IV Q4H PRN for For Anxiety, (Reported) Morphine Sulfate (Morphine Sulfate), 2 MG IJ EVERY 4 HOURS PRN for Severe Pain ( Pain Scale 7-10), (Reported) Nitroglycerin (Nitroglycerin), 0.4 MG SL [id number] PRN for CHEST PAIN, ( Reported) Ondansetron Hcl/Pf (Ondansetron 4 Mg/2 Ml Ampule), 4 MG IJ EVERY 6 HOURS PRN for Nausea & Vomiting, (Reported) Ondansetron Odt* (Zofran Odt*), 4 MG ORAL Q8H PRN for Nausea & Vomiting, ( Reported) Promethazine HCl/Codeine (Prometh-Codein 6.25-10 mg/5 ml), 5 ML PO EVERY 6 HOURS PRN for For Cough, (Reported) Miscellaneous Medications Benztropine Mesylate* (Cogentin*), 1 MG PO, (Reported) Fluticasone Propionate (Flonase Allergy Relief), 9.9 ML NS, (Reported) Patient History Healthcare decision maker Resuscitation status Full Code Advanced Directive on File Past Medical/Surgical History Past Medical/Surgical History: (1) COPD (chronic obstructive pulmonary disease) (2) IBS (irritable bowel syndrome) (3) Dementia (4) Gastric ulcer Review of Systems All Other Systems: negative except mentioned in HPI Physical Exam General Appearance: WD/WN Lines, tubes and drains: peripheral HEENT: normocephalic, atraumatic Neck: non-tender, normal alignment Respiratory/Chest: chest wall non-tender, normal breath sounds Breasts: no masses Cardiovascular/Chest: normal rate Abdomen: normal bowel sounds, hyperactive bowel sounds Last 24 Hour Vital Signs Date Time Temp Pulse Resp B/P (MAP) Pulse Ox O2 Delivery O2 Flow Rate FiO2 12/22/17 08:30 Room Air 12/22/17 08:00 99.0 78 18 109/51 (70) 90 99.0 12/22/17 04:00 99.3 73 20 101/64 (76) 91 99.3 12/22/17 00:00 98.3 71 20 113/65 (81) 92 98.3 12/21/17 21:00 Room Air 12/21/17 20:00 99.2 68 20 129/66 (87) 94 99.2 12/21/17 19:39 Room Air 12/21/17 15:30 98.1 79 21 127/80 100 Room Air 98.1 12/21/17 15:07 98.1 79 21 127/80 100 Room Air 98.1 12/21/17 14:21 98.1 88 18 120/68 100 Room Air 98.1 12/21/17 12:28 98.1 89 18 115/60 99 Room Air 98.1 12/21/17 12:10 98.1 66 18 115/60 99 Room Air 98.1 Intake and Output 12/21/17 12/22/17 19:00 07:00 Intake Total 50 ml 450 ml Balance 50 ml 450 ml Intake IV Total 50 ml 450 ml # Voids 1 2 Laboratory Tests Test 12/21/17 13:00 12/22/17 07:20 12/22/17 07:50 White Blood Count 7.0 K/UL (4.8-10.8) 6.2 K/UL (4.8-10.8) Red Blood Count 3.94 M/UL (4.20-5.40) L 3.86 M/UL (4.20-5.40) L Hemoglobin 11.7 G/DL (12.0-16.0) L 11.4 G/DL (12.0-16.0) L Hematocrit 36.1 % (37.0-47.0) L 35.3 % (37.0-47.0) L Mean Corpuscular Volume 92 FL (80-99) 91 FL (80-99) Mean Corpuscular Hemoglobin 29.8 PG (27.0-31.0) 29.4 PG (27.0-31.0) Mean Corpuscular Hemoglobin Concent 32.6 G/DL (32.0-36.0) 32.2 G/DL (32.0-36.0) Red Cell Distribution Width 12.2 % (11.6-14.8) 12.3 % (11.6-14.8) Platelet Count 220 K/UL (150-450) 187 K/UL (150-450) Mean Platelet Volume 5.5 FL (6.5-10.1) L 5.3 FL (6.5-10.1) L Neutrophils (%) (Auto) 69.1 % (45.0-75.0) 71.7 % (45.0-75.0) Lymphocytes (%) (Auto) 13.7 % (20.0-45.0) L 12.2 % (20.0-45.0) L Monocytes (%) (Auto) 11.3 % (1.0-10.0) H 10.4 % (1.0-10.0) H Eosinophils (%) (Auto) 4.0 % (0.0-3.0) H 4.5 % (0.0-3.0) H Basophils (%) (Auto) 1.8 % (0.0-2.0) 1.3 % (0.0-2.0) Prothrombin Time 10.0 SEC (9.30-11.50) 10.4 SEC (9.30-11.50) Prothromb Time International Ratio 0.9 (0.9-1.1) 1.0 (0.9-1.1) Urine Color Pale yellow Urine Appearance Slightly cloudy Urine pH 6 (4.5-8.0) Urine Specific [place] 1.005 (1.005-1.035) Urine Protein Negative (NEGATIVE) Urine Glucose (UA) Negative (NEGATIVE) Urine Ketones Negative (NEGATIVE) Urine Occult Blood 1+ (NEGATIVE) H Urine Nitrite Negative (NEGATIVE) Urine Bilirubin Negative (NEGATIVE) Urine Urobilinogen Normal MG/DL (0.0-1.0) Urine Leukocyte Esterase 2+ (NEGATIVE) H Urine RBC 2-4 /HPF (0 - 2) H Urine WBC 5-10 /HPF (0 - 2) H Urine Squamous Epithelial Cells Few /LPF (NONE/OCC) Urine Bacteria Few /HPF (NONE) Sodium Level 140 MMOL/L (136-145) 143 MMOL/L (136-145) Potassium Level 3.8 MMOL/L (3.5-5.1) 3.9 MMOL/L (3.5-5.1) Chloride Level 103 MMOL/L (98-107) 108 MMOL/L (98-107) H Carbon Dioxide Level 29 MMOL/L (21-32) 30 MMOL/L (21-32) Anion Gap 8 mmol/L (5-15) 5 mmol/L (5-15) Blood Urea Nitrogen 17 mg/dL (7-18) 14 mg/dL (7-18) Creatinine 0.9 MG/DL (0.55-1.30) 0.8 MG/DL (0.55-1.30) Estimat Glomerular Filtration Rate > 60 mL/min (>60) > 60 mL/min (>60) Glucose Level 86 MG/DL (74-106) 93 MG/DL (74-106) Calcium Level 9.2 MG/DL (8.5-10.1) 8.7 MG/DL (8.5-10.1) Total Bilirubin 0.3 MG/DL (0.2-1.0) 0.4 MG/DL (0.2-1.0) Aspartate Amino Transf (AST/SGOT) 25 U/L (15-37) 21 U/L (15-37) Alanine Aminotransferase (ALT/SGPT) 39 U/L (12-78) 33 U/L (12-78) Alkaline Phosphatase 87 U/L (46-116) 84 U/L (46-116) Troponin I 0.000 ng/mL (0.000-0.056) Pro-B-Type Natriuretic Peptide 357 pg/mL (0-125) H Total Protein 7.2 G/DL (6.4-8.2) 6.3 G/DL (6.4-8.2) L Albumin 3.2 G/DL (3.4-5.0) L 2.7 G/DL (3.4-5.0) L Globulin 4.0 g/dL 3.6 g/dL Albumin/Globulin Ratio 0.8 (1.0-2.7) L 0.8 (1.0-2.7) L Pending Lipase 120 U/L (73-393) 128 U/L (73-393) Urine Opiates Screen Negative (NEGATIVE) Urine Barbiturates Screen Negative (NEGATIVE) Phencyclidine (PCP) Screen Negative (NEGATIVE) Urine Amphetamines Screen Negative (NEGATIVE) Urine Benzodiazepines Screen Negative (NEGATIVE) Urine Cocaine Screen Negative (NEGATIVE) Urine Marijuana (THC) Screen Negative (NEGATIVE) Activated Partial Thromboplast Time 30 SEC (23-33) Hemoglobin A1c 5.9 % (4.3-6.0) Amylase Level 53 U/L (25-115) Thyroid Stimulating Hormone (TSH) 1.262 uiU/mL (0.358-3.740) Erythrocyte Sedimentation Rate Pending Total Protein (PEP) Pending Albumin (PEP) Pending Globulin (PEP) Pending [id number] Pending Occba-3-Zwzohydza Pending Beta Globulins Pending Beta Gamma Globulin Pending PEP Abnormal Protein Bands Pending Protein Electrophoresis Interpret Pending Vitamin B12 Level Pending Vitamin D 25-Hydroxy Pending 25-Hydroxy Vitamin D2 Pending 25-Hydroxy Vitamin D3 Pending Folate Pending Rapid Plasma Reagin Pending Height (Feet): 5 Height (Inches): 8.00 Weight (Pounds): 150 Medications Current Medications Medications (Trade) Dose Ordered Sig/Toyin Route PRN Reason Start Time Stop Time Status Last Admin Dose Admin Acetaminophen (Tylenol) 650 mg Q4H PRN ORAL T>100.5 12/21/17 14:45 01/20/18 14:44 12/22/17 08:11 Al Hydroxide/Mg Hydroxide (Mylanta II) 30 ml Q6H PRN ORAL dyspepsia 12/21/17 14:45 01/20/18 14:44 Diphenhydramine HCl (Benadryl) 25 mg Q6H PRN ORAL Itching/Pruritis 12/21/17 14:45 01/20/18 14:44 Duloxetine HCl (Cymbalta) 30 mg DAILY ORAL 12/22/17 09:00 01/21/18 08:59 12/22/17 08:27 Gabapentin (Neurontin) 400 mg TWICE A DAY ORAL 12/21/17 18:00 01/20/18 17:59 12/22/17 08:10 Heparin Sodium (Porcine) (Heparin 5000 units/ml) 5,000 units EVERY 12 HOURS SUBQ 12/21/17 21:00 8/17/18 20:59 12/22/17 08:13 Memantine (Namenda) 5 mg TWICE A DAY ORAL 12/21/17 18:00 01/20/18 17:59 12/22/17 08:10 Montelukast Sodium (Singulair) 10 mg DAILY ORAL 12/22/17 09:00 01/21/18 08:59 12/22/17 08:10 Morphine Sulfate (Morphine Sulfate) 2 mg Q4H PRN IVP Severe Pain (Pain Scale 7-10) 12/21/17 14:45 12/28/17 14:44 Nitroglycerin (Ntg) 0.4 mg Q5M X 3 DOSES PRN SL Prn Chest Pain 12/21/17 14:45 01/20/18 14:44 Olanzapine (ZyPREXA) 15 mg QHS ORAL 12/21/17 21:00 01/20/18 20:59 12/21/17 20:32 Ondansetron HCl (Zofran) 4 mg Q6H PRN IVP Nausea & Vomiting 12/21/17 14:45 01/20/18 14:44 12/21/17 20:32 Pantoprazole (Protonix) 40 mg DAILY ORAL 12/22/17 09:00 01/21/18 08:59 12/22/17 08:10 Polyethylene Glycol (Miralax) 17 gm HSPRN PRN ORAL Constipation 12/21/17 21:00 01/20/18 20:59 Quetiapine Fumarate (SEROquel) 50 mg QHS ORAL 12/21/17 21:00 01/20/18 20:59 12/21/17 20:31 Sodium Chloride 1,000 ml @ 50 mls/hr Q20H IV 12/21/17 17:00 01/20/18 16:59 12/21/17 18:00 Temazepam (Restoril) 15 mg HSPRN PRN ORAL Insomnia 12/21/17 21:00 12/28/17 20:59 Theophylline (Norberto-Dur) 100 mg EVERY 12 HOURS ORAL 12/21/17 21:00 01/20/18 20:59 12/22/17 08:10 Assessment/Plan Problem List: (1) Intractable nausea and vomiting ICD Codes: R11.2 - Nausea with vomiting, unspecified SNOMED: 243409352 (2) COPD (chronic obstructive pulmonary disease) ICD Codes: J44.9 - Chronic obstructive pulmonary disease, unspecified SNOMED: 32356329 (3) Dementia ICD Codes: F03.90 - Unspecified dementia without behavioral disturbance SNOMED: 12137462 (4) Gastric ulcer ICD Codes: K25.9 - Gastric ulcer, unspecified as acute or chronic, without hemorrhage or perforation SNOMED: 224650882 Assessment/Plan npo IV fluids symptomatic treatment check electrolytes respiratory treatment psych evaluation dvt prophylaxis. Gabino Almanza MD Dec 22, 2017 11:22
[2017-12-22 12:00] VITALS: BP 95/59
--- NOTE | 2017-12-22 15:09 | Consultation ---
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 Also diffuse muscle pain and abd pain. She had EGD and colonscopy last year. Dnies cp, diarrhea Allergies: Coded Allergies: ASPIRIN (Verified Allergy, Unknown, 06/16/16) CELECOXIB (Verified Allergy, Unknown, 06/16/16) IBUPROFEN (Verified Allergy, Unknown, 06/16/16) Medication History Scheduled Calcium Carbonate (Tums), 500 MG PO BID, (Reported) Duloxetine Hcl* (Cymbalta*), 30 MG ORAL DAILY, (Reported) Gabapentin* (Gabapentin*), 400 MG ORAL TWICE A DAY, (Reported) Heparin Sod (Porcine) (Heparin Sodium*), 5,000 UNITS SUBQ EVERY 12 HOURS, ( Reported) Insulin Aspart* (Novolog*), 0 SUBQ AC+HS, (Reported) Levofloxacin (Levofloxacin*), 500 MG ORAL DAILY, (Reported) Loratadine (Claritin), 10 MG ORAL DAILY, (Reported) Loratadine (Claritin), 10 MG ORAL DAILY, (Reported) Lorazepam* (Ativan*), 1 MG ORAL EVERY 6 HOURS, (Reported) Lorazepam* (Ativan*), 0.5 MG ORAL EVERY 6 HOURS, (Reported) Memantine Hcl* (Namenda*), 5 MG ORAL TWICE A DAY, (Reported) Memantine Hcl* (Namenda*), 5 MG ORAL TWICE A DAY, (Reported) Methylprednisolone Sod Succ/Pf (Solu-Medrol (Pf) 40 Mg Vial), 60 MG IJ DAILY, ( Reported) Methylprednisolone* (Medrol*), 4 MG ORAL DAILY Montelukast Sodium* (Montelukast Sodium*), 10 MG ORAL DAILY, (Reported) Olanzapine* (Zyprexa*), 10 MG ORAL DAILY, (Reported) Olanzapine* (Zyprexa*), 15 MG ORAL DAILY, (Reported) [place]-3 Fatty Acids/Fish Oil ([place] 3 1,000 Mg Softgel), 2 EACH PO DAILY, ( Reported) Prednisone* (Prednisone*), 20 MG ORAL DAILY Quetiapine Fumarate* (Quetiapine Fumarate*), 50 MG ORAL DAILY, (Reported) Temazepam* (Restoril*), 15 ML ORAL EVERY 12 HOURS, (Reported) Tetrabenazine (Xenazine), 12.5 MG ORAL TID, (Reported) Theophylline (Theodur*), 100 MG ORAL EVERY 12 HOURS, (Reported) Vitamin D (Vitamin D3), 1,000 UNITS ORAL DAILY, (Reported) Scheduled PRN Dextrose 50 % In Water (Dextrose 50%-Water Vial), 50 ML IV PRN PRN for Hypoglycemia, (Reported) Lorazepam (Lorazepam), 0.5 MG IV Q4H PRN for For Anxiety, (Reported) Morphine Sulfate (Morphine Sulfate), 2 MG IJ EVERY 4 HOURS PRN for Severe Pain ( Pain Scale 7-10), (Reported) Nitroglycerin (Nitroglycerin), 0.4 MG SL [id number] PRN for CHEST PAIN, ( Reported) Ondansetron Hcl/Pf (Ondansetron 4 Mg/2 Ml Ampule), 4 MG IJ EVERY 6 HOURS PRN for Nausea & Vomiting, (Reported) Ondansetron Odt* (Zofran Odt*), 4 MG ORAL Q8H PRN for Nausea & Vomiting, ( Reported) Promethazine HCl/Codeine (Prometh-Codein 6.25-10 mg/5 ml), 5 ML PO EVERY 6 HOURS PRN for For Cough, (Reported) Miscellaneous Medications Benztropine Mesylate* (Cogentin*), 1 MG PO, (Reported) Fluticasone Propionate (Flonase Allergy Relief), 9.9 ML NS, (Reported) Patient History Healthcare decision maker Resuscitation status Full Code Advanced Directive on File Patient History Narrative Pmhx: as above Shx: No smoking. No alcohol. No intravenous drug abuse. Fhx: non contributory Review of Systems All Other Systems: negative except mentioned in HPI Physical Exam Physical Exam Narrative GENERAL: Calm in bed, oriented x2, in no acute distress. VITAL SIGNS: Temperature is 98 degrees, pulse 88, respirations 18, and blood pressure 120/68. CARDIOVASCULAR: No murmur. LUNGS: Distant and clear. ABDOMEN: Bowel sounds positive. Nontender. Nondistended. EXTREMITIES: No cyanosis, clubbing, or edema. NEUROLOGIC: The patient moves all extremities, slightly weak. Last 24 Hour Vital Signs Date Time Temp Pulse Resp B/P (MAP) Pulse Ox O2 Delivery O2 Flow Rate FiO2 12/22/17 12:00 99.3 64 18 95/59 (71) 92 99.3 12/22/17 08:30 Room Air 12/22/17 08:00 99.0 78 18 109/51 (70) 90 99.0 12/22/17 04:00 99.3 73 20 101/64 (76) 91 99.3 12/22/17 00:00 98.3 71 20 113/65 (81) 92 98.3 12/21/17 21:00 Room Air 12/21/17 20:00 99.2 68 20 129/66 (87) 94 99.2 12/21/17 19:39 Room Air 12/21/17 15:30 98.1 79 21 127/80 100 Room Air 98.1 12/21/17 15:07 98.1 79 21 127/80 100 Room Air 98.1 Intake and Output 12/21/17 12/22/17 19:00 07:00 Intake Total 50 ml 450 ml Balance 50 ml 450 ml Intake IV Total 50 ml 450 ml # Voids 1 2 Laboratory Tests Test 12/22/17 07:20 12/22/17 07:50 White Blood Count 6.2 K/UL (4.8-10.8) Red Blood Count 3.86 M/UL (4.20-5.40) L Hemoglobin 11.4 G/DL (12.0-16.0) L Hematocrit 35.3 % (37.0-47.0) L Mean Corpuscular Volume 91 FL (80-99) Mean Corpuscular Hemoglobin 29.4 PG (27.0-31.0) Mean Corpuscular Hemoglobin Concent 32.2 G/DL (32.0-36.0) Red Cell Distribution Width 12.3 % (11.6-14.8) Platelet Count 187 K/UL (150-450) Mean Platelet Volume 5.3 FL (6.5-10.1) L Neutrophils (%) (Auto) 71.7 % (45.0-75.0) Lymphocytes (%) (Auto) 12.2 % (20.0-45.0) L Monocytes (%) (Auto) 10.4 % (1.0-10.0) H Eosinophils (%) (Auto) 4.5 % (0.0-3.0) H Basophils (%) (Auto) 1.3 % (0.0-2.0) Prothrombin Time 10.4 SEC (9.30-11.50) Prothromb Time International Ratio 1.0 (0.9-1.1) Activated Partial Thromboplast Time 30 SEC (23-33) Sodium Level 143 MMOL/L (136-145) Potassium Level 3.9 MMOL/L (3.5-5.1) Chloride Level 108 MMOL/L (98-107) H Carbon Dioxide Level 30 MMOL/L (21-32) Anion Gap 5 mmol/L (5-15) Blood Urea Nitrogen 14 mg/dL (7-18) Creatinine 0.8 MG/DL (0.55-1.30) Estimat Glomerular Filtration Rate > 60 mL/min (>60) Glucose Level 93 MG/DL (74-106) Hemoglobin A1c 5.9 % (4.3-6.0) Calcium Level 8.7 MG/DL (8.5-10.1) Total Bilirubin 0.4 MG/DL (0.2-1.0) Aspartate Amino Transf (AST/SGOT) 21 U/L (15-37) Alanine Aminotransferase (ALT/SGPT) 33 U/L (12-78) Alkaline Phosphatase 84 U/L (46-116) Total Protein 6.3 G/DL (6.4-8.2) L Albumin 2.7 G/DL (3.4-5.0) L Globulin 3.6 g/dL Albumin/Globulin Ratio 0.8 (1.0-2.7) L Pending Amylase Level 53 U/L (25-115) Lipase 128 U/L (73-393) Thyroid Stimulating Hormone (TSH) 1.262 uiU/mL (0.358-3.740) Erythrocyte Sedimentation Rate 17 MM/HR (0-30) Total Protein (PEP) Pending Albumin (PEP) Pending Globulin (PEP) Pending Bmxod-3-Plqdnkmpy Pending Yqfaq-0-Kapkmyfbx Pending Beta Globulins Pending Beta Gamma Globulin Pending PEP Abnormal Protein Bands Pending Protein Electrophoresis Interpret Pending Vitamin B12 Level 535 PG/ML (193-986) Vitamin D 25-Hydroxy Pending 25-Hydroxy Vitamin D2 Pending 25-Hydroxy Vitamin D3 Pending Folate 8.1 NG/ML (8.6-58.9) L Rapid Plasma Reagin Pending Height (Feet): 5 Height (Inches): 8.00 Weight (Pounds): 150 Medications Current Medications Medications (Trade) Dose Ordered Sig/Toyin Route PRN Reason Start Time Stop Time Status Last Admin Dose Admin Acetaminophen (Tylenol) 650 mg Q4H PRN ORAL T>100.5 12/21/17 14:45 01/20/18 14:44 12/22/17 08:11 Al Hydroxide/Mg Hydroxide (Mylanta II) 30 ml Q6H PRN ORAL dyspepsia 12/21/17 14:45 01/20/18 14:44 Diphenhydramine HCl (Benadryl) 25 mg Q6H PRN ORAL Itching/Pruritis 12/21/17 14:45 01/20/18 14:44 Duloxetine HCl (Cymbalta) 30 mg DAILY ORAL 12/22/17 09:00 01/21/18 08:59 12/22/17 08:27 Gabapentin (Neurontin) 400 mg TWICE A DAY ORAL 12/21/17 18:00 01/20/18 17:59 12/22/17 08:10 Heparin Sodium (Porcine) (Heparin 5000 units/ml) 5,000 units EVERY 12 HOURS SUBQ 12/21/17 21:00 01/20/18 20:59 12/22/17 08:13 Memantine (Namenda) 5 mg TWICE A DAY ORAL 12/21/17 18:00 01/20/18 17:59 12/22/17 08:10 Montelukast Sodium (Singulair) 10 mg DAILY ORAL 12/22/17 09:00 01/21/18 08:59 12/22/17 08:10 Morphine Sulfate (Morphine Sulfate) 2 mg Q4H PRN IVP Severe Pain (Pain Scale 7-10) 12/21/17 14:45 12/28/17 14:44 Nitroglycerin (Ntg) 0.4 mg Q5M X 3 DOSES PRN SL Prn Chest Pain 12/21/17 14:45 01/20/18 14:44 Olanzapine (ZyPREXA) 15 mg QHS ORAL 12/21/17 21:00 01/20/18 20:59 12/21/17 20:32 Ondansetron HCl (Zofran) 4 mg Q6H PRN IVP Nausea & Vomiting 12/21/17 14:45 01/20/18 14:44 12/21/17 20:32 Pantoprazole (Protonix) 40 mg DAILY ORAL 12/22/17 09:00 01/21/18 08:59 12/22/17 08:10 Polyethylene Glycol (Miralax) 17 gm HSPRN PRN ORAL Constipation 12/21/17 21:00 01/20/18 20:59 Quetiapine Fumarate (SEROquel) 50 mg QHS ORAL 12/21/17 21:00 01/20/18 20:59 12/21/17 20:31 Sodium Chloride 1,000 ml @ 50 mls/hr Q20H IV 12/21/17 17:00 01/20/18 16:59 12/21/17 18:00 Temazepam (Restoril) 15 mg HSPRN PRN ORAL Insomnia 12/21/17 21:00 12/28/17 20:59 Theophylline (Norberto-Dur) 100 mg EVERY 12 HOURS ORAL 12/21/17 21:00 01/20/18 20:59 12/22/17 08:10 Assessment/Plan Assessment/Plan Abx: None Assessment: Vomiting, now resolved (recurrent)- r/o gastroparesis vs PUD vs ?gastroenteritis -CXR: Mild hyperinflation, could indicate COPD changes. Left basilar atelectasis. Borderline cardiomegaly -Abd US: Negative FTT Low grade fever- at present no evidence of infectious process -V. duplex: no DVT. 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 Will continue to follow along with you. Discussed with Mandy Cleaning.D. Dec 22, 2017 15:09
[2017-12-22 16:00] VITALS: BP 99/55
--- NOTE | 2017-12-22 16:15 | General Progress Note ---
Assessment/Plan Problem List: (1) Nausea & vomiting ICD Codes: R11.2 - Nausea with vomiting, unspecified SNOMED: 22021146 (2) Abdominal pain ICD Codes: R10.9 - Unspecified abdominal pain SNOMED: 41224938 (3) UTI (urinary tract infection) ICD Codes: N39.0 - Urinary tract infection, site not specified SNOMED: 88466730 (4) FTT (failure to thrive) in adult ICD Codes: R62.7 - Adult failure to thrive SNOMED: 763213656 (5) Weak ICD Codes: R53.1 - Weakness SNOMED: 09632840 (6) Dementia ICD Codes: F03.90 - Unspecified dementia without behavioral disturbance SNOMED: 60713810 Status: unchanged Assessment/Plan ot pt diet abx pain control gi f/u cbc bmp am Subjective Constitutional: Reports: weakness Allergies: Coded Allergies: ASPIRIN (Verified Allergy, Unknown, 06/16/16) CELECOXIB (Verified Allergy, Unknown, 06/16/16) IBUPROFEN (Verified Allergy, Unknown, 06/16/16) All Systems: reviewed and negative except above Subjective sleepy in bed Objective Last 24 Hour Vital Signs Date Time Temp Pulse Resp B/P (MAP) Pulse Ox O2 Delivery O2 Flow Rate FiO2 12/22/17 12:00 99.3 64 18 95/59 (71) 92 99.3 12/22/17 08:30 Room Air 12/22/17 08:00 99.0 78 18 109/51 (70) 90 99.0 12/22/17 04:00 99.3 73 20 101/64 (76) 91 99.3 12/22/17 00:00 98.3 71 20 113/65 (81) 92 98.3 12/21/17 21:00 Room Air 12/21/17 20:00 99.2 68 20 129/66 (87) 94 99.2 12/21/17 19:39 Room Air Intake and Output 12/21/17 12/22/17 19:00 07:00 Intake Total 50 ml 450 ml Balance 50 ml 450 ml Intake IV Total 50 ml 450 ml # Voids 1 2 Laboratory Tests 12/22/17 07:20: White Blood Count 6.2, Red Blood Count 3.86L, Hemoglobin 11.4L, Hematocrit 35.3L , Mean Corpuscular Volume 91, Mean Corpuscular Hemoglobin 29.4, Mean Corpuscular Hemoglobin Concent 32.2, Red Cell Distribution Width 12.3, Platelet Count 187, Mean Platelet Volume 5.3L, Neutrophils (%) (Auto) 71.7, Lymphocytes ( %) (Auto) 12.2L, Monocytes (%) (Auto) 10.4H, Eosinophils (%) (Auto) 4.5H, Basophils (%) (Auto) 1.3, Prothrombin Time 10.4, Prothromb Time International Ratio 1.0, Activated Partial Thromboplast Time 30, Sodium Level 143, Potassium Level 3.9, Chloride Level 108H, Carbon Dioxide Level 30, Anion Gap 5, Blood Urea Nitrogen 14, Creatinine 0.8, Estimat Glomerular Filtration Rate > 60, Glucose Level 93, Hemoglobin A1c 5.9, Calcium Level 8.7, Total Bilirubin 0.4, Aspartate Amino Transf (AST/SGOT) 21, Alanine Aminotransferase (ALT/SGPT) 33, Alkaline Phosphatase 84, Total Protein 6.3L, Albumin 2.7L, Globulin 3.6, Albumin /Globulin Ratio 0.8L, Amylase Level 53, Lipase 128, Thyroid Stimulating Hormone (TSH) 1.262 12/22/17 07:50: Albumin/Globulin Ratio [Pending], Erythrocyte Sedimentation Rate 17, Total Protein (PEP) [Pending], Albumin (PEP) [Pending], Globulin (PEP) [Pending], [id number] [Pending], Qadtc-8-Ofebovzht [Pending], Beta Globulins [ Pending], Beta Gamma Globulin [Pending], PEP Abnormal Protein Bands [Pending], Protein Electrophoresis Interpret [Pending], Vitamin B12 Level 535, Vitamin D 25 -Hydroxy [Pending], 25-Hydroxy Vitamin D2 [Pending], 25-Hydroxy Vitamin D3 [ Pending], Folate 8.1L, Rapid Plasma Reagin [Pending] Height (Feet): 5 Height (Inches): 8.00 Weight (Pounds): 150 General Appearance: lethargic EENT: normal ENT inspection Neck: normal alignment Cardiovascular: normal peripheral pulses, normal rate, regular rhythm Respiratory/Chest: chest wall non-tender, lungs clear, normal breath sounds Abdomen: normal bowel sounds, non tender, soft Extremities: normal inspection Edema: no edema noted Leg (L) Neurologic: motor weakness Skin: normal pigmentation, warm/dry Antonio Alston DO Dec 22, 2017 16:15
--- NOTE | 2017-12-22 17:00 | Consultation ---
DATE OF CONSULTATION: 12/22/2017 NEUROLOGY CONSULTATION CONSULTING PHYSICIAN: Nikolai Lagunas M.D. REQUESTING PHYSICIAN: Antonio Alston D.O. HISTORY: Ms. Ruth Bishop is a 67-year-old, right-handed, lady, who does have a past history of an undefined psychiatric illness - which she denies, dementia, generalized weakness, fibromyalgia, arthritis, neuropathy due to unknown reasons, and approximately 1 year ago, she was diagnosed with Laporte's disease at [facility]. She was hospitalized on 12/21/2017 for failure to thrive, gastrointestinal problems of nausea, vomiting, and stomach upset, and a feeling of dizziness. I was called in to evaluate her dizziness. As per the patient, she has had dizziness for the last few months. The dizzy feeling is intermittent. It only occurs when she stands up from lying down or sitting position. The dizziness lasts for a few seconds to a few minutes and then improves with time. She feels that this dizzy feeling is a sensation of lightheadedness rather than a sensation of motion. She denies any associated weakness on one side or the other, numbness on one side or the other, problems with speech, problems with language, problems with vision, and problems with her memory. Approximately 1 year ago, she states that she was at [facility] where she was diagnosed with Jean Marie's disease after they did some blood tests. She has had abnormal mouth and limb movements for few years now. PAST MEDICAL HISTORY: Significant for an undefined psychiatric illness, which the patient denies, dementia, which again the patient denies, generalized weakness, fibromyalgia, arthritis, neuropathy, and Laporte's disease. FAMILY HISTORY: Nothing significant with no family history of any neurological or psychiatric illness. PERSONAL HISTORY: Home: She lives in a fpc. 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 Habits: She denies use of tobacco, alcohol, or illicit drugs. PRESENT MEDICATIONS: Cymbalta, Singulair, Protonix, Zyprexa 15 mg at bedtime, Seroquel 50 mg at bedtime, theophylline, heparin for DVT prophylaxis, temazepam p.r.n., MiraLAX p.r.n., gabapentin 400 mg twice a day, memantine 5 mg twice a day, Tylenol p.r.n., morphine p.r.n., Zofran p.r.n., Benadryl p.r.n., Mylanta p.r.n., and nitroglycerin p.r.n. PHYSICAL EXAMINATION: GENERAL: She is a well-developed, well-nourished, pleasant lady, lying in bed, exhibiting oral buccal, lingual, limb, and trunk dyskinesias and dystonia. VITAL SIGNS: Pulse 78 per minute, blood pressure 109/51 mmHg, respirations 18 per minute, and temperature 99 degrees Fahrenheit. HEAD: Normocephalic and atraumatic. EENT: Examination benign. NECK: No neck rigidity was observed. NEUROLOGICAL EXAMINATION: MENTAL STATUS EXAMINATION: She was awake and alert. She was oriented to person, place, and time except for the exact date. She was able to recall 3/3 words immediately, but could only remember 2/3 words in 1 minute and 3 minutes on the first trial. On the second trial, she was able to remember all 3 words in 1 minute and 3 minutes. She was able to remember presidents Trump through Andino Sr. with minimal hints. Her mathematical skills were fairly good. Her visuospatial function was preserved. SPEECH: She had no dysarthria. LANGUAGE: She had a mild anomia for low-frequency words. CRANIAL NERVE EXAMINATION: II: The visual matias were intact on confrontation testing. III, IV & : The external ocular movements were full and the pupils 3 mm in diameter, equal, round, regular, and reactive to light. V: She had normal facial sensations, and the temporales, masseters, and pterygoids functioned normally. VII: She had normal facial expressions and no facial asymmetry. VIII: She was able to hear well bilaterally and had no nystagmus. IX: The palate moved symmetrically on phonation. X: She had no hoarseness of voice. XI: The sternocleidomastoids and trapezii functioned normally. XII: The tongue was in the midline without any fasciculations or atrophy. MOTOR SYSTEM: The tone was normal in all four extremities. Examination of muscle mass revealed no focal wasting. Examination of power revealed grade 5/5 power in all muscle groups tested. SENSORY EXAMINATION: She had intact sensations to pinprick, light touch, and graphesthesia. Position sense was diminished in the toes bilaterally, but was normal in the fingers bilaterally. REFLEXES: Trace+ and bilaterally symmetrical at the biceps, triceps, brachioradialis, and knees. 0 at both ankles. The plantar responses were flexor bilaterally. COORDINATION: She performed well on [id number] and zglc-[id number]-[id number] testing. On Romberg test, she swayed, but did not fall to one side or the other. STANCE: She stood up independently. GAIT: She walked relatively well independently. ABNORMAL MOVEMENTS: Orobuccolingual, limb, and trunk dystonia and dyskinesia: G 2. DIAGNOSTIC IMPRESSION: 1. Ms. Ruth Bishop is a 67-year-old, right-handed, lady, who does have a past history of an undefined psychiatric illness, questionable dementia, generalized weakness, fibromyalgia, arthritis, neuropathy, and what she says is Laporte's disease, who was hospitalized for failure to thrive, nausea, vomiting, stomach upset, and dizziness. 2. On neurological examination, at this time, she does have mild problems with orientation, recent and remote memory, decreased position sense in the toes bilaterally, globally diminished deep tendon reflexes, and orobuccal, lingual, limb, and trunk dystonia and dyskinesias. 3. Laboratory data obtained thus far have revealed a mild anemia with a hemoglobin of 11.4 G. The chemistry panel is essentially benign except for low albumin at 2.7. The toxicology screen is benign and her urine analysis reveals 2+ leukocyte esterase, 2-4 red blood cells, and 5-10 white blood cells per high-power field. 4. The patient's history and neurological examination are most compatible with dizziness, which in her case is the lightheaded feeling when she stands up from sitting or lying down position most probably related to postural blood pressure changes, which may in turn be related to decreased intravascular volume in this patient, who is not eating and drinking too well. 5. The patient's dystonic and dyskinetic movement disorder could either be due to drug-related etiology as she is on neuroleptics and most probably has been on neuroleptics for some time. 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 6. The patient does have a neuropathic process. The etiology of which is unclear at this point in time. RECOMMENDATIONS: 1. Agree with management thus far. 2. Would keep the patient well hydrated. 3. She should be worked up thoroughly for other treatable causes of neuropathy. 4. Her diagnosis of Laporte's disease, should be confirmed or refuted. If confirmed, it may be worth considering starting the patient on tetrabenazine to help her with her movement disorder. 5. The patient should be kept as active as possible. 6. Depending on how she fares over the next day or so, further recommendations will be given. Thank you for entrusting me with the care of Ms. Bishop. I shall follow her with you. Nikolai Lagunas M.D., M.S.P.H. DR: DANITA JOB#: [id number] MTDD
[2017-12-22 20:00] VITALS: BP 100/45
[2017-12-23] VITALS: BP 116/50
[2017-12-23 04:00] VITALS: BP 100/54
[2017-12-23 07:08] LABS: BASOPHILS % (AUTO) 1.4 % (0.0-2.0); EOSINOPHILS % (AUTO) 5.1 % (0.0-3.0); HEMATOCRIT 36.5 % (37.0-47.0); HEMOGLOBIN 11.9 G/DL (12.0-16.0); LYMPHOCYTES % (AUTO) 14.8 % (20.0-45.0); MEAN CORPUSCULAR VOLUME 91 FL (80-99); MONOCYTES % (AUTO) 10.8 % (1.0-10.0); NEUTROPHILS % (AUTO) 67.9 % (45.0-75.0); PLATELET COUNT 202 K/UL (150-450)
[2017-12-23 07:36] LABS: ANION GAP 5 mmol/L (5-15); BLOOD UREA NITROGEN 18 mg/dL (7-18); CALCIUM 8.9 MG/DL (8.5-10.1); CARBON DIOXIDE 31 MMOL/L (21-32); CHLORIDE 108 MMOL/L (98-107); POTASSIUM 4.1 MMOL/L (3.5-5.1); SODIUM 143 MMOL/L (136-145)
[2017-12-23 08:00] VITALS: BP 105/54
[2017-12-23] MEDS: Theophylline ER 100mg ORAL SCH ×2 (09:05→21:53)
[2017-12-23] MEDS: Memantine 5 MG TAB ORAL SCH ×2 (09:05→17:21)
[2017-12-23] MEDS: Montelukast 10mg tablet ORAL SCH (09:05)
[2017-12-23] MEDS: Heparin 5000 units/ml inj SUBQ SCH ×2 (09:10→21:58)
--- NOTE | 2017-12-23 09:11 | Neurology Progress Note ---
Interim History Interim History Interim History Ms. Bishop feels better. The dizziness is gone. The mind is clear. She has had no change in her abnormal movements. She denies any new neurologic problems. Her cognitive function is stable. When she stands and walks she is steady. Review of Systems Neuro Review of Systems Benign. Objective Physical Exam Last Vital Signs Date Time Temp Pulse Resp B/P (MAP) Pulse Ox O2 Delivery O2 Flow Rate FiO2 12/23/17 04:00 97.0 63 20 100/54 (69) 92 97.0 12/22/17 21:00 Room Air Laboratory Tests Test 12/23/17 06:30 White Blood Count 6.0 K/UL (4.8-10.8) Red Blood Count 4.00 M/UL (4.20-5.40) L Hemoglobin 11.9 G/DL (12.0-16.0) L Hematocrit 36.5 % (37.0-47.0) L Mean Corpuscular Volume 91 FL (80-99) Mean Corpuscular Hemoglobin 29.8 PG (27.0-31.0) Mean Corpuscular Hemoglobin Concent 32.7 G/DL (32.0-36.0) Red Cell Distribution Width 12.0 % (11.6-14.8) Platelet Count 202 K/UL (150-450) Mean Platelet Volume 5.6 FL (6.5-10.1) L Neutrophils (%) (Auto) 67.9 % (45.0-75.0) Lymphocytes (%) (Auto) 14.8 % (20.0-45.0) L Monocytes (%) (Auto) 10.8 % (1.0-10.0) H Eosinophils (%) (Auto) 5.1 % (0.0-3.0) H Basophils (%) (Auto) 1.4 % (0.0-2.0) Sodium Level 143 MMOL/L (136-145) Potassium Level 4.1 MMOL/L (3.5-5.1) Chloride Level 108 MMOL/L (98-107) H Carbon Dioxide Level 31 MMOL/L (21-32) Anion Gap 5 mmol/L (5-15) Blood Urea Nitrogen 18 mg/dL (7-18) Creatinine 1.0 MG/DL (0.55-1.30) Estimat Glomerular Filtration Rate 55.3 mL/min (>60) Glucose Level 94 MG/DL (74-106) Calcium Level 8.9 MG/DL (8.5-10.1) Treponema pallidum Ab (FTA-ABS) Pending HIV (1&2) Antibody Rapid Negative (NEGATIVE) Neurologic Exam Objective PHYSICAL EXAMINATION: GENERAL: She is a well-developed, well-nourished, pleasant lady, lying in bed, exhibiting orobuccolingual, limb, and trunk dyskinesias and dystonias. HEAD: Normocephalic and atraumatic. EENT: Examination benign. NECK: No neck rigidity was observed. NEUROLOGICAL EXAMINATION: MENTAL STATUS EXAMINATION: She was awake and alert. She was oriented to person, place, and time except for the exact date. She was able to recall 3/3 words immediately, but could only remember 2/3 words in 1 minute and 3 minutes on the first trial. On the second trial, she was able to remember all 3 words in 1 minute and 3 minutes. She was able to remember presidents Trump through Andino Sr. with minimal hints. Her mathematical skills were fairly good. Her visuospatial function was preserved. SPEECH: She had no dysarthria. LANGUAGE: She had a mild anomia for low-frequency words. CRANIAL NERVE EXAMINATION: II: The visual matias were intact on confrontation testing. III, IV & : The external ocular movements were full and the pupils 3 mm in diameter, equal, round, regular, and reactive to light. V: She had normal facial sensations, and the temporales, masseters, and pterygoids functioned normally. VII: She had normal facial expressions and no facial asymmetry. VIII: She was able to hear well bilaterally and had no nystagmus. IX: The palate moved symmetrically on phonation. X: She had no hoarseness of voice. XI: The sternocleidomastoids and trapezii functioned normally. XII: The tongue was in the midline without any fasciculations or atrophy. MOTOR SYSTEM: The tone was normal in all four extremities. Examination of muscle mass revealed no focal wasting. Examination of power revealed grade 5/5 power in all muscle groups tested. SENSORY EXAMINATION: She had intact sensations to pinprick, light touch, and graphesthesia. Position sense was diminished in the toes bilaterally, but was normal in the fingers bilaterally. REFLEXES: Trace+ and bilaterally symmetrical at the biceps, triceps, brachioradialis, and knees. 0 at both ankles. The plantar responses were flexor bilaterally. COORDINATION: She performed well on shgujj-nt-dzto and nnot-sr-yvap testing. On Romberg test, she swayed, but did not fall to one side or the other. STANCE: She stood up independently. GAIT: She walked relatively well independently. ABNORMAL MOVEMENTS: Orobuccolingual, limb, and trunk dystonia and dyskinesia: G 07/10. Impression/Recommendations Diagnostic Impression 1. Ms. 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 2. She feels better. The dizziness is gone. The mind is clear. She has had no change in her abnormal movements. She denies any new neurologic problems. Her cognitive function is stable. When she stands and walks she is steady. 3. On neurological examination, at this time, she does have mild problems with orientation, recent and remote memory, decreased position sense in the toes bilaterally, globally diminished deep tendon reflexes, and orobuccal, lingual, limb, and trunk dystonia and dyskinesias. 4. Laboratory data obtained thus far have revealed a mild anemia with a hemoglobin of 11.4 G. The chemistry panel is essentially benign except for low albumin at 2.7. The toxicology screen is benign and her urine analysis reveals 2+ leukocyte esterase, 2-4 red blood cells, and 5-10 white blood cells per high- power field. Her B12 and TSH are normal but her folate is low at 8.1. 5. The patient's history and neurological examination are most compatible with dizziness, which in her case is the lightheaded feeling when she stands up from sitting or lying down position most probably related to postural blood pressure changes, which may in turn be related to decreased intravascular volume in this patient, who is not eating and drinking too well. The dizziness has resolved now. 6. The patient's dystonic and dyskinetic movement disorder could either be due to drug-related etiology as she is on neuroleptics and most probably has been on neuroleptics for some time. 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 7. The patient does have a neuropathic process. She is folic acid deficient which could be contributing to her neuropathy. Recommendations 1. Continue present management. 2. Keep well hydrated. 3. Folic acid 1 mg q day. 4. Her diagnosis of Jean Marie's disease, should be confirmed or refuted. If confirmed, it may be worth considering starting the patient on tetrabenazine to help her with her movement disorder. 5. The patient should be kept as active as possible. Nikolai Sauer M.D., M.S.P.H. NIKOLAI SAUER Dec 23, 2017 09:11
[2017-12-23] MEDS: DULoxetine 30mg cap ORAL SCH (10:07)
--- NOTE | 2017-12-23 10:20 | GI Progress Note ---
Assessment/Plan Problems: (1) IBS (irritable bowel syndrome) ICD Codes: K58.9 - Irritable bowel syndrome without diarrhea SNOMED: 42139261 (2) Anemia ICD Codes: D64.9 - Anemia, unspecified SNOMED: 879837284 (3) GERD (gastroesophageal reflux disease) ICD Codes: K21.9 - Gastro-esophageal reflux disease without esophagitis SNOMED: 525230933 (4) Abdominal pain ICD Codes: R10.9 - Unspecified abdominal pain SNOMED: 69541239 (5) PUD (peptic ulcer disease) ICD Codes: K27.9 - Peptic ulcer, site unspecified, unspecified as acute or chronic, without hemorrhage or perforation SNOMED: 37386195 (6) Dementia ICD Codes: F03.90 - Unspecified dementia without behavioral disturbance SNOMED: 47156416 (7) Gastric ulcer ICD Codes: K25.9 - Gastric ulcer, unspecified as acute or chronic, without hemorrhage or perforation SNOMED: 103244722 Status: stable Status Narrative Discussed with Dr. Crump. Assessment/Plan abdominal US negative okay for DC per GI standpoint will consider endoscopy if abdominal pain not controlled with medical management adv to regular diet PPI + carafate monitor for diarrhea, send stool studies/cdiff if present zofran prn OB stool r/o GI bleed monitor H&H, prn transfusions bowel regime fu labs The patient was seen and examined at bedside and all new and available data was reviewed in the patients chart. I agree with the above findings, impression and plan. (Patient seen earlier today. Signature stamp does not reflect patient encounter time.). - Ortega Crump MD Subjective Gastrointestinal/Abdominal: Reports: no symptoms Subjective abdominal pain resolved Objective Last 24 Hour Vital Signs Date Time Temp Pulse Resp B/P (MAP) Pulse Ox O2 Delivery O2 Flow Rate FiO2 12/23/17 09:07 100.4 12/23/17 04:00 97.0 63 20 100/54 (69) 92 97.0 12/23/17 00:00 98.1 60 20 116/50 (72) 93 98.1 12/22/17 21:00 Room Air 12/22/17 20:00 100.4 75 20 100/45 (63) 92 100.4 12/22/17 18:47 101.2 12/22/17 17:48 100.2 12/22/17 16:00 100.2 60 18 99/55 (70) 95 100.2 12/22/17 12:00 99.3 64 18 95/59 (71) 92 99.3 Intake and Output 12/22/17 12/23/17 19:00 07:00 Intake Total 1100 ml 600 ml Balance 1100 ml 600 ml Intake Oral 500 ml IV Total 600 ml 600 ml # Voids 4 2 Laboratory Tests Test 12/23/17 06:30 White Blood Count 6.0 K/UL (4.8-10.8) Red Blood Count 4.00 M/UL (4.20-5.40) L Hemoglobin 11.9 G/DL (12.0-16.0) L Hematocrit 36.5 % (37.0-47.0) L Mean Corpuscular Volume 91 FL (80-99) Mean Corpuscular Hemoglobin 29.8 PG (27.0-31.0) Mean Corpuscular Hemoglobin Concent 32.7 G/DL (32.0-36.0) Red Cell Distribution Width 12.0 % (11.6-14.8) Platelet Count 202 K/UL (150-450) Mean Platelet Volume 5.6 FL (6.5-10.1) L Neutrophils (%) (Auto) 67.9 % (45.0-75.0) Lymphocytes (%) (Auto) 14.8 % (20.0-45.0) L Monocytes (%) (Auto) 10.8 % (1.0-10.0) H Eosinophils (%) (Auto) 5.1 % (0.0-3.0) H Basophils (%) (Auto) 1.4 % (0.0-2.0) Sodium Level 143 MMOL/L (136-145) Potassium Level 4.1 MMOL/L (3.5-5.1) Chloride Level 108 MMOL/L (98-107) H Carbon Dioxide Level 31 MMOL/L (21-32) Anion Gap 5 mmol/L (5-15) Blood Urea Nitrogen 18 mg/dL (7-18) Creatinine 1.0 MG/DL (0.55-1.30) Estimat Glomerular Filtration Rate 55.3 mL/min (>60) Glucose Level 94 MG/DL (74-106) Calcium Level 8.9 MG/DL (8.5-10.1) Treponema pallidum Ab (FTA-ABS) Pending HIV (1&2) Antibody Rapid Negative (NEGATIVE) Height (Feet): 5 Height (Inches): 8.00 Weight (Pounds): 150 General Appearance: WD/WN, no apparent distress, alert Cardiovascular: normal rate Respiratory/Chest: normal breath sounds, no respiratory distress Abdominal Exam: normal bowel sounds, non tender, soft Extremities: normal range of motion, non-tender Agusto Gudino [employer] Dec 23, 2017 10:20
--- NOTE | 2017-12-23 10:35 | Infectious Diseases Prog Note ---
Assessment/Plan Assessment/Plan Abx: None Assessment: Vomiting, now resolved (recurrent)- r/o gastroparesis vs PUD vs ?gastroenteritis -CXR: Mild hyperinflation, could indicate COPD changes. Left basilar atelectasis. Borderline cardiomegaly -Abd US: Negative FTT Low grade fever- at present no evidence of infectious process -V. duplex: no DVT. 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 Will continue to follow along with you. Discussed with RN. Subjective Allergies: Coded Allergies: ASPIRIN (Verified Allergy, Unknown, 06/16/16) CELECOXIB (Verified Allergy, Unknown, 06/16/16) IBUPROFEN (Verified Allergy, Unknown, 06/16/16) Subjective Tm 100.4 no leukocytosis eating regular food Objective Vital Signs Last 24 Hour Vital Signs Date Time Temp Pulse Resp B/P (MAP) Pulse Ox O2 Delivery O2 Flow Rate FiO2 12/23/17 10:06 97.5 12/23/17 09:07 100.4 12/23/17 04:00 97.0 63 20 100/54 (69) 92 97.0 12/23/17 00:00 98.1 60 20 116/50 (72) 93 98.1 12/22/17 21:00 Room Air 12/22/17 20:00 100.4 75 20 100/45 (63) 92 100.4 12/22/17 17:48 100.2 12/22/17 16:00 100.2 60 18 99/55 (70) 95 100.2 12/22/17 12:00 99.3 64 18 95/59 (71) 92 99.3 Height (Feet): 5 Height (Inches): 8.00 Weight (Pounds): 150 Objective GENERAL: Calm in bed, oriented x2, in no acute distress. VITAL SIGNS: Temperature is 98 degrees, pulse 88, respirations 18, and blood pressure 120/68. CARDIOVASCULAR: No murmur. LUNGS: Distant and clear. ABDOMEN: Bowel sounds positive. Nontender. Nondistended. EXTREMITIES: No cyanosis, clubbing, or edema. NEUROLOGIC: The patient moves all extremities, slightly weak. Microbiology Date/Time Source Procedure Growth Status 12/21/17 15:20 Rectum VRE Culture - Final NO VANCOMYCIN RESISTANT ENTEROCOCCUS ... Complete 12/21/17 15:20 Rectum - Final NO CARBAPENEM-RESISTANT ENTEROBACTERI... Complete Laboratory Tests Test 12/23/17 06:30 White Blood Count 6.0 K/UL (4.8-10.8) Red Blood Count 4.00 M/UL (4.20-5.40) L Hemoglobin 11.9 G/DL (12.0-16.0) L Hematocrit 36.5 % (37.0-47.0) L Mean Corpuscular Volume 91 FL (80-99) Mean Corpuscular Hemoglobin 29.8 PG (27.0-31.0) Mean Corpuscular Hemoglobin Concent 32.7 G/DL (32.0-36.0) Red Cell Distribution Width 12.0 % (11.6-14.8) Platelet Count 202 K/UL (150-450) Mean Platelet Volume 5.6 FL (6.5-10.1) L Neutrophils (%) (Auto) 67.9 % (45.0-75.0) Lymphocytes (%) (Auto) 14.8 % (20.0-45.0) L Monocytes (%) (Auto) 10.8 % (1.0-10.0) H Eosinophils (%) (Auto) 5.1 % (0.0-3.0) H Basophils (%) (Auto) 1.4 % (0.0-2.0) Sodium Level 143 MMOL/L (136-145) Potassium Level 4.1 MMOL/L (3.5-5.1) Chloride Level 108 MMOL/L (98-107) H Carbon Dioxide Level 31 MMOL/L (21-32) Anion Gap 5 mmol/L (5-15) Blood Urea Nitrogen 18 mg/dL (7-18) Creatinine 1.0 MG/DL (0.55-1.30) Estimat Glomerular Filtration Rate 55.3 mL/min (>60) Glucose Level 94 MG/DL (74-106) Calcium Level 8.9 MG/DL (8.5-10.1) Treponema pallidum Ab (FTA-ABS) Pending HIV (1&2) Antibody Rapid Negative (NEGATIVE) Current Medications Medications (Trade) Dose Ordered Sig/Toyin Route PRN Reason Start Time Stop Time Status Last Admin Dose Admin Acetaminophen (Tylenol) 650 mg Q4H PRN ORAL T>100.5 12/21/17 14:45 01/20/18 14:44 12/23/17 09:07 Al Hydroxide/Mg Hydroxide (Mylanta II) 30 ml Q6H PRN ORAL dyspepsia 12/21/17 14:45 01/20/18 14:44 Diphenhydramine HCl (Benadryl) 25 mg Q6H PRN ORAL Itching/Pruritis 12/21/17 14:45 01/20/18 14:44 Duloxetine HCl (Cymbalta) 30 mg DAILY ORAL 12/22/17 09:00 01/21/18 08:59 12/23/17 10:07 Gabapentin (Neurontin) 400 mg TWICE A DAY ORAL 12/21/17 18:00 01/20/18 17:59 12/23/17 09:05 Heparin Sodium (Porcine) (Heparin 5000 units/ml) 5,000 units EVERY 12 HOURS SUBQ 12/21/17 21:00 01/20/18 20:59 12/23/17 09:10 Memantine (Namenda) 5 mg TWICE A DAY ORAL 12/21/17 18:00 01/20/18 17:59 12/23/17 09:05 Montelukast Sodium (Singulair) 10 mg DAILY ORAL 12/22/17 09:00 01/21/18 08:59 12/23/17 09:05 Morphine Sulfate (Morphine Sulfate) 2 mg Q4H PRN IVP Severe Pain (Pain Scale 7-10) 12/21/17 14:45 12/28/17 14:44 Nitroglycerin (Ntg) 0.4 mg Q5M X 3 DOSES PRN SL Prn Chest Pain 12/21/17 14:45 01/20/18 14:44 Olanzapine (ZyPREXA) 15 mg QHS ORAL 12/21/17 21:00 01/20/18 20:59 12/22/17 21:47 Ondansetron HCl (Zofran) 4 mg Q6H PRN IVP Nausea & Vomiting 12/21/17 14:45 01/20/18 14:44 12/21/17 20:32 Pantoprazole (Protonix) 40 mg DAILY ORAL 12/22/17 09:00 01/21/18 08:59 12/23/17 09:05 Polyethylene Glycol (Miralax) 17 gm HSPRN PRN ORAL Constipation 12/21/17 21:00 01/20/18 20:59 Quetiapine Fumarate (SEROquel) 50 mg QHS ORAL 12/21/17 21:00 01/20/18 20:59 12/22/17 21:47 Sodium Chloride 1,000 ml @ 50 mls/hr Q20H IV 12/21/17 17:00 01/20/18 16:59 12/23/17 09:07 Temazepam (Restoril) 15 mg HSPRN PRN ORAL Insomnia 12/21/17 21:00 12/28/17 20:59 Theophylline (Norberto-Dur) 100 mg EVERY 12 HOURS ORAL 12/21/17 21:00 01/20/18 20:59 12/23/17 09:05 Mandy Miller M.D. Dec 23, 2017 10:35
[2017-12-23 12:00] VITALS: BP 103/51
--- NOTE | 2017-12-23 12:08 | General Progress Note ---
Assessment/Plan Problem List: (1) Nausea & vomiting ICD Codes: R11.2 - Nausea with vomiting, unspecified SNOMED: 18443007 (2) Abdominal pain ICD Codes: R10.9 - Unspecified abdominal pain SNOMED: 64590276 (3) UTI (urinary tract infection) ICD Codes: N39.0 - Urinary tract infection, site not specified SNOMED: 81127438 (4) FTT (failure to thrive) in adult ICD Codes: R62.7 - Adult failure to thrive SNOMED: 508019502 (5) Weak ICD Codes: R53.1 - Weakness SNOMED: 58959768 (6) Dementia ICD Codes: F03.90 - Unspecified dementia without behavioral disturbance SNOMED: 80216129 Status: stable, progressing Assessment/Plan ot pt diet abx pain control gi f/u cbc bmp am dc plan Subjective Constitutional: Reports: weakness Allergies: Coded Allergies: ASPIRIN (Verified Allergy, Unknown, 06/16/16) CELECOXIB (Verified Allergy, Unknown, 06/16/16) IBUPROFEN (Verified Allergy, Unknown, 06/16/16) All Systems: reviewed and negative except above Subjective sleepy in bed Objective Last 24 Hour Vital Signs Date Time Temp Pulse Resp B/P (MAP) Pulse Ox O2 Delivery O2 Flow Rate FiO2 12/23/17 10:06 97.5 12/23/17 09:07 100.4 12/23/17 09:00 Room Air 12/23/17 08:00 100.4 73 20 105/54 (71) 93 100.4 12/23/17 04:00 97.0 63 20 100/54 (69) 92 97.0 12/23/17 00:00 98.1 60 20 116/50 (72) 93 98.1 12/22/17 21:00 Room Air 12/22/17 20:00 100.4 75 20 100/45 (63) 92 100.4 12/22/17 17:48 100.2 12/22/17 16:00 100.2 60 18 99/55 (70) 95 100.2 Intake and Output 12/22/17 12/23/17 19:00 07:00 Intake Total 1100 ml 600 ml Balance 1100 ml 600 ml Intake Oral 500 ml IV Total 600 ml 600 ml # Voids 4 2 Laboratory Tests 12/23/17 06:30: White Blood Count 6.0, Red Blood Count 4.00L, Hemoglobin 11.9L, Hematocrit 36.5L , Mean Corpuscular Volume 91, Mean Corpuscular Hemoglobin 29.8, Mean Corpuscular Hemoglobin Concent 32.7, Red Cell Distribution Width 12.0, Platelet Count 202, Mean Platelet Volume 5.6L, Neutrophils (%) (Auto) 67.9, Lymphocytes ( %) (Auto) 14.8L, Monocytes (%) (Auto) 10.8H, Eosinophils (%) (Auto) 5.1H, Basophils (%) (Auto) 1.4, Sodium Level 143, Potassium Level 4.1, Chloride Level 108H, Carbon Dioxide Level 31, Anion Gap 5, Blood Urea Nitrogen 18, Creatinine 1.0, Estimat Glomerular Filtration Rate 55.3, Glucose Level 94, Calcium Level 8.9, Treponema pallidum Ab (FTA-ABS) [Pending], HIV (1&2) Antibody Rapid Negative Height (Feet): 5 Height (Inches): 8.00 Weight (Pounds): 150 General Appearance: lethargic EENT: normal ENT inspection Neck: normal alignment Cardiovascular: normal peripheral pulses, normal rate, regular rhythm Respiratory/Chest: chest wall non-tender, lungs clear, normal breath sounds Abdomen: normal bowel sounds, non tender, soft Extremities: normal inspection Edema: no edema noted Arm (L), no edema noted Arm (R), no edema noted Leg (L), no edema noted Leg (R), no edema noted Pedal (L), no edema noted Pedal (R), no edema noted Generalized Neurologic: motor weakness Skin: normal pigmentation, warm/dry Antonio Alston DO Dec 23, 2017 12:08
--- NOTE | 2017-12-23 12:35 | Pulmonology Progress Note ---
Assessment/Plan Problems: (1) Sepsis (2) Intractable nausea and vomiting (3) COPD (chronic obstructive pulmonary disease) (4) Dementia (5) Gastric ulcer Assessment/Plan frey culture abx as per ID respiratory treatment symptomatic treatment all reviewed dvt prophylaxis. Subjective ROS Limited/Unobtainable: No Constitutional: Reports: no symptoms HEENT: Repors: no symptoms Respiratory: Reports: no symptoms Allergies: Coded Allergies: ASPIRIN (Verified Allergy, Unknown, 06/16/16) CELECOXIB (Verified Allergy, Unknown, 06/16/16) IBUPROFEN (Verified Allergy, Unknown, 06/16/16) Objective Last 24 Hour Vital Signs Date Time Temp Pulse Resp B/P (MAP) Pulse Ox O2 Delivery O2 Flow Rate FiO2 12/23/17 10:06 97.5 12/23/17 09:07 100.4 12/23/17 09:00 Room Air 12/23/17 08:00 100.4 73 20 105/54 (71) 93 100.4 12/23/17 04:00 97.0 63 20 100/54 (69) 92 97.0 12/23/17 00:00 98.1 60 20 116/50 (72) 93 98.1 12/22/17 21:00 Room Air 12/22/17 20:00 100.4 75 20 100/45 (63) 92 100.4 12/22/17 17:48 100.2 12/22/17 16:00 100.2 60 18 99/55 (70) 95 100.2 Intake and Output 12/22/17 12/23/17 19:00 07:00 Intake Total 1100 ml 600 ml Balance 1100 ml 600 ml Intake Oral 500 ml IV Total 600 ml 600 ml # Voids 4 2 General Appearance: WD/WN HEENT: atraumatic Respiratory/Chest: chest wall non-tender, lungs clear Breasts: no masses Cardiovascular: normal peripheral pulses Abdomen: soft, non tender, non distended Skin: no rash Microbiology Date/Time Source Procedure Growth Status 12/21/17 15:20 Nasal Nares MRSA Culture - Final Staphylococcus Aureus - Mrsa Complete 12/21/17 15:20 Rectum VRE Culture - Final NO VANCOMYCIN RESISTANT ENTEROCOCCUS ... Complete 12/21/17 15:20 Rectum - Final NO CARBAPENEM-RESISTANT ENTEROBACTERI... Complete Laboratory Tests 12/23/17 06:30: White Blood Count 6.0, Red Blood Count 4.00L, Hemoglobin 11.9L, Hematocrit 36.5L , Mean Corpuscular Volume 91, Mean Corpuscular Hemoglobin 29.8, Mean Corpuscular Hemoglobin Concent 32.7, Red Cell Distribution Width 12.0, Platelet Count 202, Mean Platelet Volume 5.6L, Neutrophils (%) (Auto) 67.9, Lymphocytes ( %) (Auto) 14.8L, Monocytes (%) (Auto) 10.8H, Eosinophils (%) (Auto) 5.1H, Basophils (%) (Auto) 1.4, Sodium Level 143, Potassium Level 4.1, Chloride Level 108H, Carbon Dioxide Level 31, Anion Gap 5, Blood Urea Nitrogen 18, Creatinine 1.0, Estimat Glomerular Filtration Rate 55.3, Glucose Level 94, Calcium Level 8.9, Treponema pallidum Ab (FTA-ABS) [Pending], HIV (1&2) Antibody Rapid Negative Current Medications Medications (Trade) Dose Ordered Sig/Toyin Route PRN Reason Start Time Stop Time Status Last Admin Dose Admin Acetaminophen (Tylenol) 650 mg Q4H PRN ORAL T>100.5 12/21/17 14:45 01/20/18 14:44 12/23/17 09:07 Al Hydroxide/Mg Hydroxide (Mylanta II) 30 ml Q6H PRN ORAL dyspepsia 12/21/17 14:45 01/20/18 14:44 Diphenhydramine HCl (Benadryl) 25 mg Q6H PRN ORAL Itching/Pruritis 12/21/17 14:45 01/20/18 14:44 Duloxetine HCl (Cymbalta) 30 mg DAILY ORAL 12/22/17 09:00 01/21/18 08:59 12/23/17 10:07 Gabapentin (Neurontin) 400 mg TWICE A DAY ORAL 12/21/17 18:00 01/20/18 17:59 12/23/17 09:05 Heparin Sodium (Porcine) (Heparin 5000 units/ml) 5,000 units EVERY 12 HOURS SUBQ 12/21/17 21:00 01/20/18 20:59 12/23/17 09:10 Memantine (Namenda) 5 mg TWICE A DAY ORAL 12/21/17 18:00 01/20/18 17:59 12/23/17 09:05 Montelukast Sodium (Singulair) 10 mg DAILY ORAL 12/22/17 09:00 01/21/18 08:59 12/23/17 09:05 Morphine Sulfate (Morphine Sulfate) 2 mg Q4H PRN IVP Severe Pain (Pain Scale 7-10) 12/21/17 14:45 12/28/17 14:44 Nitroglycerin (Ntg) 0.4 mg Q5M X 3 DOSES PRN SL Prn Chest Pain 12/21/17 14:45 01/20/18 14:44 Olanzapine (ZyPREXA) 15 mg QHS ORAL 12/21/17 21:00 01/20/18 20:59 12/22/17 21:47 Ondansetron HCl (Zofran) 4 mg Q6H PRN IVP Nausea & Vomiting 12/21/17 14:45 01/20/18 14:44 12/21/17 20:32 Pantoprazole (Protonix) 40 mg DAILY ORAL 12/22/17 09:00 01/21/18 08:59 12/23/17 09:05 Polyethylene Glycol (Miralax) 17 gm HSPRN PRN ORAL Constipation 12/21/17 21:00 01/20/18 20:59 Quetiapine Fumarate (SEROquel) 50 mg QHS ORAL 12/21/17 21:00 01/20/18 20:59 12/22/17 21:47 Sodium Chloride 1,000 ml @ 50 mls/hr Q20H IV 12/21/17 17:00 01/20/18 16:59 12/23/17 09:07 Temazepam (Restoril) 15 mg HSPRN PRN ORAL Insomnia 12/21/17 21:00 12/28/17 20:59 Theophylline (Norberto-Dur) 100 mg EVERY 12 HOURS ORAL 12/21/17 21:00 01/20/18 20:59 12/23/17 09:05 Gabino Almanza MD Dec 23, 2017 12:35
--- NOTE | 2017-12-23 14:34 | Diagnostic Imaging Report ---
Indication: Cough Technique: One view of the chest Comparison: 03/23/2018 Findings: There is atelectasis at the left lung base. Lungs and pleural spaces are otherwise clear. The heart is borderline enlarged. No significant change Impression: Left basilar atelectasis No definite acute process otherwise
[2017-12-23 16:00] VITALS: BP 92/55
--- NOTE | 2017-12-23 17:03 | Cardiology Report ---
APPROVED REPORT EKG Measurement Heart [id number] Normal sinus rhythm Normal ECG
--- NOTE | 2017-12-23 19:40 | Cardiology Progress Note ---
Assessment/Plan Assessment/Plan The patient is seen and examined, full consult note will be dictated. Objective Last 24 Hour Vital Signs Date Time Temp Pulse Resp B/P (MAP) Pulse Ox O2 Delivery O2 Flow Rate FiO2 12/23/17 18:46 98.3 12/23/17 17:47 98.3 12/23/17 16:00 98.3 60 18 92/55 (67) 94 98.3 12/23/17 12:00 95.0 71 20 103/51 (68) 71 95.0 12/23/17 09:07 100.4 12/23/17 09:00 Room Air 12/23/17 08:00 100.4 73 20 105/54 (71) 93 100.4 12/23/17 04:00 97.0 63 20 100/54 (69) 92 97.0 12/23/17 00:00 98.1 60 20 116/50 (72) 93 98.1 12/22/17 21:00 Room Air 12/22/17 20:00 100.4 75 20 100/45 (63) 92 100.4 Intake and Output 12/22/17 12/23/17 19:00 07:00 Intake Total 1100 ml 600 ml Balance 1100 ml 600 ml Intake Oral 500 ml IV Total 600 ml 600 ml # Voids 4 2 Laboratory Tests Test 12/23/17 06:30 White Blood Count 6.0 K/UL (4.8-10.8) Red Blood Count 4.00 M/UL (4.20-5.40) L Hemoglobin 11.9 G/DL (12.0-16.0) L Hematocrit 36.5 % (37.0-47.0) L Mean Corpuscular Volume 91 FL (80-99) Mean Corpuscular Hemoglobin 29.8 PG (27.0-31.0) Mean Corpuscular Hemoglobin Concent 32.7 G/DL (32.0-36.0) Red Cell Distribution Width 12.0 % (11.6-14.8) Platelet Count 202 K/UL (150-450) Mean Platelet Volume 5.6 FL (6.5-10.1) L Neutrophils (%) (Auto) 67.9 % (45.0-75.0) Lymphocytes (%) (Auto) 14.8 % (20.0-45.0) L Monocytes (%) (Auto) 10.8 % (1.0-10.0) H Eosinophils (%) (Auto) 5.1 % (0.0-3.0) H Basophils (%) (Auto) 1.4 % (0.0-2.0) Sodium Level 143 MMOL/L (136-145) Potassium Level 4.1 MMOL/L (3.5-5.1) Chloride Level 108 MMOL/L (98-107) H Carbon Dioxide Level 31 MMOL/L (21-32) Anion Gap 5 mmol/L (5-15) Blood Urea Nitrogen 18 mg/dL (7-18) Creatinine 1.0 MG/DL (0.55-1.30) Estimat Glomerular Filtration Rate 55.3 mL/min (>60) Glucose Level 94 MG/DL (74-106) Calcium Level 8.9 MG/DL (8.5-10.1) Treponema pallidum Ab (FTA-ABS) Pending HIV (1&2) Antibody Rapid Negative (NEGATIVE) Microbiology Date/Time Source Procedure Growth Status 12/21/17 15:20 Nasal Nares MRSA Culture - Final Staphylococcus Aureus - Mrsa Complete 12/21/17 15:20 Rectum VRE Culture - Final NO VANCOMYCIN RESISTANT ENTEROCOCCUS ... Complete 12/21/17 15:20 Rectum - Final NO CARBAPENEM-RESISTANT ENTEROBACTERI... Complete Milind Cruz MD Dec 23, 2017 19:40
[2017-12-23 20:00] VITALS: BP 117/55
[2017-12-24] VITALS: BP 100/57
--- NOTE | 2017-12-24 01:30 | Consultation ---
DATE OF CONSULTATION: 12/23/2017 CARDIOLOGY CONSULTATION CONSULTING PHYSICIAN: Milind Cruz M.D. REFERRING PHYSICIAN: Antonio Alston D.O. REASON FOR CONSULTATION: Management of hypotension. HISTORY OF PRESENT ILLNESS: The patient is a very unfortunate 67-year-old female, who is a resident of a detention facility, who was brought to the emergency department of [facility] for repeated vomiting, most likely secondary to gastritis. The patient reports esophagogastroduodenoscopy and colonoscopy last year, for which she was given medication. Apparently, she is compliant with her medication. She has dementia and history is somewhat unreliable. According to Dr. Alston, primary care physician, she was unable to tolerate p.o. She also has some component of psychiatric disorder. She was believed to be in a decompensated state. The patient at the time of arrival to the hospital had normal hemodynamics, however, in the course of her stay in the Medical/Surgical unit, developed hypotension with blood pressure as low as 92/55 mmHg. She also developed fever 100.4 degrees Fahrenheit and heart rate remained to vary between 65 to 89. Cardiology consultation was made to address hypotension. PAST MEDICAL HISTORY: Includes chronic obstructive pulmonary disease, history of gastritis, and diabetes mellitus. SURGERIES: Endoscopy, upper and lower. MEDICATIONS: List of medications from the nursing facility included benztropine mesylate 1 mg p.o. daily, Tums 500 mg p.o. twice daily, Cymbalta 30 mg p.o. daily, Flonase 9.9 mL nasal spray twice daily, gabapentin 400 mg twice daily, 5000 units subcutaneous q.12 hours, NovoLog insulin, levofloxacin 500 mg p.o. daily, Claritin 10 mg p.o. daily, lorazepam 0.5 mg intravenous q.4 hours p.r.n. anxiety, Ativan 1 mg p.o. q.6 hours, Namenda 5 mg p.o. twice daily, Solu-Medrol 60 mg IJ daily, Medrol 4 mg p.o. daily, montelukast 10 mg p.o. daily, morphine sulfate 2 mg IJ every 4 h p.r.n. severe pain, nitroglycerin 0.4 mg sublingual q.5 minutes x3 dose p.r.n. chest pain, Zyprexa 10 mg p.o. daily, omega-3 fatty acid 1000 mg two capsules daily, Zofran 4 mg IJ every six hours p.r.n. nausea and vomiting, promethazine codeine syrup 5 mL p.o. q.6 hours p.r.n. cough, Seroquel 50 mg p.o. daily, Restoril 15 mg p.o. q.12 hours, 12.5 mg three times a day, Norberto-Dur 100 mg p.o. q.12 h., and vitamin D3 1000 units p.o. daily. ALLERGIES: Aspirin, celecoxib, and ibuprofen. FAMILY HISTORY: No premature coronary artery disease in first-degree relatives. HABITS: Denies any tobacco, alcohol, or illicit drug use. REVIEW OF SYSTEMS: HEENT: Denies any headache, diplopia, or blurred vision. CONSTITUTIONAL: Generalized weakness was reported. The patient also had some subjective fever, but no night sweats, weight loss, or weight gain. CARDIOVASCULAR: Denies any chest pain, shortness of breath, PND, orthopnea, or leg swelling. PULMONARY: Denies any cough, hemoptysis, or wheezing. GASTROINTESTINAL: Had repeated vomiting, inability to tolerate p.o., but no diarrhea, constipation, or GI bleed. GENITOURINARY: Denies any hematuria, dysuria, or incontinence. NEUROLOGY: Denies any motor dysfunction, sensory deficit, or altered speech. PHYSICAL EXAMINATION: VITAL SIGNS: Blood pressure was down to 95/59, heart rate of 64, respirations 18, temperature 100.2 degrees Fahrenheit, and O2 saturation of 95% on room air. GENERAL: The patient is a very pleasant 67-year-old female, in no apparent respiratory distress. Calm and quiet in room. HEENT: Atraumatic and normocephalic. Anicteric. Pupils are equal, round, and reactive to light and accommodation. Extraocular muscles intact. NECK: JVP less than 5 cm. No carotid bruit. Carotid upstrokes is 2+ bilaterally. CVS: Normal S1, S2. Regular rate and rhythm. No murmurs, gallops, or rubs. PMI is at fourth intercostal space in the midclavicular line. LUNGS: Clear to auscultation bilaterally. ABDOMEN: Soft, nontender, and nondistended. No hepatosplenomegaly. Positive bowel sounds. EXTREMITIES: There is no evidence of edema, clubbing, or cyanosis. IMAGING DATA: Chest x-ray showed mild hyperinflation, could be chronic obstructive pulmonary disease changes, left basal atelectasis, and borderline cardiomegaly. Abdominal ultrasound was negative. A 12-lead electrocardiogram showed sinus rhythm rate at the rate of 63, which is normal. LABORATORY FINDINGS: WBC 7.0, hemoglobin 11.7, hematocrit of 36.1, and platelet count was 220,000. Chemistry showed sodium of 140, potassium is 3.8, chloride 103, bicarbonate 29, BUN of 17, creatinine 0.9, glucose 86, and calcium is 9.2. Troponin I is 0.0. ProBNP was 357. INR was 0.9. Toxicology was negative. ASSESSMENT AND PLAN: This is a very unfortunate 67-year-old female, seen in Cardiology consultation at the request of Dr. Alston. 1. Hypotension. This is most likely hypovolemia. The patient requires to be well hydrated. Initial laboratory finding showed some evidence of contraction alkalosis. We will like to repeat a chemistry. Slight elevation of proBNP has low positive predictive value and the patient should be continued on hydration. There is no clinical signs of heart failure at this time. None. 2. History of diabetes mellitus. 3. History of psychiatric disorder. 4. History of dementia. I would like to thank, Dr. Alston, for allowing me to participate in the care of this patient. Milind Cruz M.D. DR: JOSIE JOB#: [id number] CC:
[2017-12-24 04:00] VITALS: BP 101/54
[2017-12-24 06:22] LABS: BASOPHILS % (AUTO) 1.1 % (0.0-2.0); HEMOGLOBIN 11.1 G/DL (12.0-16.0); LYMPHOCYTES % (AUTO) 16.3 % (20.0-45.0); MEAN CORPUSCULAR VOLUME 91 FL (80-99); MONOCYTES % (AUTO) 10.4 % (1.0-10.0); NEUTROPHILS % (AUTO) 67.2 % (45.0-75.0); PLATELET COUNT 205 K/UL (150-450); RED BLOOD COUNT 3.84 M/UL (4.20-5.40); RED CELL DISTRIBUTION WIDTH 12.1 % (11.6-14.8); WHITE BLOOD COUNT 6.6 K/UL (4.8-10.8)
[2017-12-24 06:32] LABS: ANION GAP 6 mmol/L (5-15); BLOOD UREA NITROGEN 18 mg/dL (7-18); CALCIUM 8.5 MG/DL (8.5-10.1); CARBON DIOXIDE 28 MMOL/L (21-32); CHLORIDE 110 MMOL/L (98-107); CREATININE 0.9 MG/DL (0.55-1.30); POTASSIUM 3.7 MMOL/L (3.5-5.1); SODIUM 144 MMOL/L (136-145)
--- NOTE | 2017-12-24 07:03 | General Progress Note ---
Assessment/Plan Problem List: (1) Nausea & vomiting ICD Codes: R11.2 - Nausea with vomiting, unspecified SNOMED: 69930151 (2) Abdominal pain ICD Codes: R10.9 - Unspecified abdominal pain SNOMED: 37248315 (3) UTI (urinary tract infection) ICD Codes: N39.0 - Urinary tract infection, site not specified SNOMED: 07930264 (4) FTT (failure to thrive) in adult ICD Codes: R62.7 - Adult failure to thrive SNOMED: 605272442 (5) Weak ICD Codes: R53.1 - Weakness SNOMED: 04904963 (6) Dementia ICD Codes: F03.90 - Unspecified dementia without behavioral disturbance SNOMED: 74984291 Status: stable, progressing Assessment/Plan ot pt diet abx pain control gi f/u cbc bmp am dc plan snf Subjective Constitutional: Reports: weakness Allergies: Coded Allergies: ASPIRIN (Verified Allergy, Unknown, 06/16/16) CELECOXIB (Verified Allergy, Unknown, 06/16/16) IBUPROFEN (Verified Allergy, Unknown, 06/16/16) All Systems: reviewed and negative except above Subjective sleepy in bed Objective Last 24 Hour Vital Signs Date Time Temp Pulse Resp B/P (MAP) Pulse Ox O2 Delivery O2 Flow Rate FiO2 12/24/17 04:00 98.1 60 19 101/54 (70) 98.1 12/24/17 00:00 98.6 56 19 100/57 (71) 92 98.6 12/24/17 00:00 98.6 56 19 100/57 (71) 92 98.6 12/23/17 21:00 Room Air 12/23/17 20:00 99.3 62 19 117/55 (75) 92 99.3 12/23/17 18:46 98.3 12/23/17 17:47 98.3 12/23/17 16:00 98.3 60 18 92/55 (67) 94 98.3 12/23/17 12:00 95.0 71 20 103/51 (68) 71 95.0 12/23/17 09:07 100.4 12/23/17 09:00 Room Air 12/23/17 08:00 100.4 73 20 105/54 (71) 93 100.4 Intake and Output 12/23/17 12/24/17 19:00 07:00 Intake Total 810 ml 550 ml Balance 810 ml 550 ml Intake Oral 260 ml IV Total 550 ml 550 ml # Voids 1 2 # Bowel Movements 1 Laboratory Tests 12/24/17 05:40: White Blood Count 6.6, Red Blood Count 3.84L, Hemoglobin 11.1L, Hematocrit 35.0L , Mean Corpuscular Volume 91, Mean Corpuscular Hemoglobin 28.8, Mean Corpuscular Hemoglobin Concent 31.6L, Red Cell Distribution Width 12.1, Platelet Count 205, Mean Platelet Volume 5.3L, Neutrophils (%) (Auto) 67.2, Lymphocytes (%) (Auto) 16.3L, Monocytes (%) (Auto) 10.4H, Eosinophils (%) (Auto ) 5.0H, Basophils (%) (Auto) 1.1, Sodium Level 144, Potassium Level 3.7, Chloride Level 110H, Carbon Dioxide Level 28, Anion Gap 6, Blood Urea Nitrogen 18, Creatinine 0.9, Estimat Glomerular Filtration Rate > 60, Glucose Level 92, Calcium Level 8.5 Height (Feet): 5 Height (Inches): 8.00 Weight (Pounds): 150 General Appearance: lethargic EENT: normal ENT inspection Neck: normal alignment Cardiovascular: normal peripheral pulses, normal rate, regular rhythm Respiratory/Chest: chest wall non-tender, lungs clear, normal breath sounds Abdomen: normal bowel sounds, non tender, soft Extremities: normal inspection Edema: no edema noted Arm (L), no edema noted Arm (R), no edema noted Leg (L), no edema noted Leg (R), no edema noted Pedal (L), no edema noted Pedal (R), no edema noted Generalized Neurologic: motor weakness Skin: normal pigmentation, warm/dry Antonio Alston DO Dec 24, 2017 07:03
--- NOTE | 2017-12-24 07:56 | General Progress Note ---
Assessment/Plan Problem List: (1) Abdominal pain ICD Codes: R10.9 - Unspecified abdominal pain SNOMED: 31454256 (2) IBS (irritable bowel syndrome) ICD Codes: K58.9 - Irritable bowel syndrome without diarrhea SNOMED: 90211201 (3) Anemia ICD Codes: D64.9 - Anemia, unspecified SNOMED: 660798940 (4) Abdominal pain ICD Codes: R10.9 - Unspecified abdominal pain SNOMED: 73296023 (5) GERD (gastroesophageal reflux disease) ICD Codes: K21.9 - Gastro-esophageal reflux disease without esophagitis SNOMED: 786347675 (6) PUD (peptic ulcer disease) ICD Codes: K27.9 - Peptic ulcer, site unspecified, unspecified as acute or chronic, without hemorrhage or perforation SNOMED: 07411930 Assessment/Plan PPI + carafate monitor for diarrhea, send stool studies/cdiff if present zofran prn OB stool r/o GI bleed monitor H&H, prn transfusions bowel regime fu labs anemia work up plan GI procedures if stool ob positive otherwise fu as out patient Subjective ROS Limited/Unobtainable: Yes Allergies: Coded Allergies: ASPIRIN (Verified Allergy, Unknown, 06/16/16) CELECOXIB (Verified Allergy, Unknown, 06/16/16) IBUPROFEN (Verified Allergy, Unknown, 06/16/16) Subjective mild abd pain Objective Last 24 Hour Vital Signs Date Time Temp Pulse Resp B/P (MAP) Pulse Ox O2 Delivery O2 Flow Rate FiO2 12/24/17 04:00 98.1 60 19 101/54 (70) 98.1 12/24/17 00:00 98.6 56 19 100/57 (71) 92 98.6 12/24/17 00:00 98.6 56 19 100/57 (71) 92 98.6 12/23/17 21:00 Room Air 12/23/17 20:00 99.3 62 19 117/55 (75) 92 99.3 12/23/17 18:46 98.3 12/23/17 17:47 98.3 12/23/17 16:00 98.3 60 18 92/55 (67) 94 98.3 12/23/17 12:00 95.0 71 20 103/51 (68) 71 95.0 12/23/17 09:07 100.4 12/23/17 09:00 Room Air 12/23/17 08:00 100.4 73 20 105/54 (71 93 100.4 Intake and Output 12/23/17 12/24/17 19:00 07:00 Intake Total 810 ml 550 ml Balance 810 ml 550 ml Intake Oral 260 ml IV Total 550 ml 550 ml # Voids 1 2 # Bowel Movements 1 Laboratory Tests 12/24/17 05:40: White Blood Count 6.6, Red Blood Count 3.84L, Hemoglobin 11.1L, Hematocrit 35.0L , Mean Corpuscular Volume 91, Mean Corpuscular Hemoglobin 28.8, Mean Corpuscular Hemoglobin Concent 31.6L, Red Cell Distribution Width 12.1, Platelet Count 205, Mean Platelet Volume 5.3L, Neutrophils (%) (Auto) 67.2, Lymphocytes (%) (Auto) 16.3L, Monocytes (%) (Auto) 10.4H, Eosinophils (%) (Auto ) 5.0H, Basophils (%) (Auto) 1.1, Sodium Level 144, Potassium Level 3.7, Chloride Level 110H, Carbon Dioxide Level 28, Anion Gap 6, Blood Urea Nitrogen 18, Creatinine 0.9, Estimat Glomerular Filtration Rate > 60, Glucose Level 92, Calcium Level 8.5 Height (Feet): 5 Height (Inches): 8.00 Weight (Pounds): 150 General Appearance: alert EENT: normal ENT inspection Neck: supple Cardiovascular: normal rate Respiratory/Chest: decreased breath sounds Abdomen: normal bowel sounds, non tender, soft Extremities: non-tender Ortega Crump MD Dec 24, 2017 07:56
[2017-12-24 08:00] VITALS: BP 102/62
[2017-12-24] MEDS: Montelukast 10mg tablet ORAL SCH (08:31)
[2017-12-24] MEDS: Memantine 5 MG TAB ORAL SCH ×2 (08:31→17:48)
[2017-12-24] MEDS: Theophylline ER 100mg ORAL SCH ×2 (08:31→20:48)
[2017-12-24] MEDS: DULoxetine 30mg cap ORAL SCH (08:31)
[2017-12-24] MEDS: Heparin 5000 units/ml inj SUBQ SCH ×2 (08:36→20:52)
--- NOTE | 2017-12-24 10:12 | Infectious Diseases Prog Note ---
Assessment/Plan Assessment/Plan Assessment: Vomiting, now resolved (recurrent)- r/o gastroparesis vs PUD vs ?gastroenteritis -CXR: Mild hyperinflation, could indicate COPD changes. Left basilar atelectasis. Borderline cardiomegaly -Abd US: Negative Low grade fever- at present no evidence of infectious process -V. duplex: no DVT. 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 Plan: -Continue to monitor off abx unless persistent/high fevers and/or HD unstable -low treshold for contrast CT if recurrent vomiting/abd pain and/or worsening fevers -Monitor CBC/CMP, temperatures -GI, Neuro f/u -aspiration precautions -f/u Bcx x2 -Cdiff and stool cx if diarrhea -f/u FTA-abs Subjective Constitutional: Denies: no symptoms, fever, chills, fatigue, anorexia, drenching sweats, other Allergies: Coded Allergies: ASPIRIN (Verified Allergy, Unknown, 06/16/16) CELECOXIB (Verified Allergy, Unknown, 06/16/16) IBUPROFEN (Verified Allergy, Unknown, 06/16/16) Objective Vital Signs Last 24 Hour Vital Signs Date Time Temp Pulse Resp B/P (MAP) Pulse Ox O2 Delivery O2 Flow Rate FiO2 12/24/17 04:00 98.1 60 19 101/54 (70) 98.1 12/24/17 00:00 98.6 56 19 100/57 (71) 92 98.6 12/24/17 00:00 98.6 56 19 100/57 (71) 92 98.6 12/23/17 21:00 Room Air 12/23/17 20:00 99.3 62 19 117/55 (75) 92 99.3 12/23/17 18:46 98.3 12/23/17 17:47 98.3 12/23/17 16:00 98.3 60 18 92/55 (67) 94 98.3 12/23/17 12:00 95.0 71 20 103/51 (68) 71 95.0 Height (Feet): 5 Height (Inches): 8.00 Weight (Pounds): 150 HEENT: anicteric Respiratory/Chest: no respiratory distress Cardiovascular: regularly irregular Abdomen: no organomegaly Microbiology Date/Time Source Procedure Growth Status 12/22/17 19:00 Blood Blood Culture - Preliminary NO GROWTH AFTER 24 HOURS Resulted 12/22/17 18:45 Blood Blood Culture - Preliminary NO GROWTH AFTER 24 HOURS Resulted 12/21/17 15:20 Nasal Nares MRSA Culture - Final Staphylococcus Aureus - Mrsa Complete 12/21/17 15:20 Rectum VRE Culture - Final NO VANCOMYCIN RESISTANT ENTEROCOCCUS ... Complete 12/21/17 15:20 Rectum - Final NO CARBAPENEM-RESISTANT ENTEROBACTERI... Complete Laboratory Tests Test 12/24/17 05:40 White Blood Count 6.6 K/UL (4.8-10.8) Red Blood Count 3.84 M/UL (4.20-5.40) L Hemoglobin 11.1 G/DL (12.0-16.0) L Hematocrit 35.0 % (37.0-47.0) L Mean Corpuscular Volume 91 FL (80-99) Mean Corpuscular Hemoglobin 28.8 PG (27.0-31.0) Mean Corpuscular Hemoglobin Concent 31.6 G/DL (32.0-36.0) L Red Cell Distribution Width 12.1 % (11.6-14.8) Platelet Count 205 K/UL (150-450) Mean Platelet Volume 5.3 FL (6.5-10.1) L Neutrophils (%) (Auto) 67.2 % (45.0-75.0) Lymphocytes (%) (Auto) 16.3 % (20.0-45.0) L Monocytes (%) (Auto) 10.4 % (1.0-10.0) H Eosinophils (%) (Auto) 5.0 % (0.0-3.0) H Basophils (%) (Auto) 1.1 % (0.0-2.0) Sodium Level 144 MMOL/L (136-145) Potassium Level 3.7 MMOL/L (3.5-5.1) Chloride Level 110 MMOL/L (98-107) H Carbon Dioxide Level 28 MMOL/L (21-32) Anion Gap 6 mmol/L (5-15) Blood Urea Nitrogen 18 mg/dL (7-18) Creatinine 0.9 MG/DL (0.55-1.30) Estimat Glomerular Filtration Rate > 60 mL/min (>60) Glucose Level 92 MG/DL (74-106) Calcium Level 8.5 MG/DL (8.5-10.1) Current Medications Medications (Trade) Dose Ordered Sig/Toyin Route PRN Reason Start Time Stop Time Status Last Admin Dose Admin Acetaminophen (Tylenol) 650 mg Q4H PRN ORAL T>100.5 12/21/17 14:45 01/20/18 14:44 12/24/17 08:46 Al Hydroxide/Mg Hydroxide (Mylanta II) 30 ml Q6H PRN ORAL dyspepsia 12/21/17 14:45 01/20/18 14:44 Diphenhydramine HCl (Benadryl) 25 mg Q6H PRN ORAL Itching/Pruritis 12/21/17 14:45 01/20/18 14:44 Duloxetine HCl (Cymbalta) 30 mg DAILY ORAL 12/22/17 09:00 01/21/18 08:59 12/24/17 08:31 Folic Acid (Folate) 1 mg DAILY ORAL 12/24/17 09:00 01/23/18 08:59 12/24/17 08:31 Gabapentin (Neurontin) 400 mg TWICE A DAY ORAL 12/21/17 18:00 01/20/18 17:59 12/24/17 08:31 Heparin Sodium (Porcine) (Heparin 5000 units/ml) 5,000 units EVERY 12 HOURS SUBQ 12/21/17 21:00 01/20/18 20:59 12/24/17 08:36 Memantine (Namenda) 5 mg TWICE A DAY ORAL 12/21/17 18:00 01/20/18 17:59 12/24/17 08:31 Montelukast Sodium (Singulair) 10 mg DAILY ORAL 12/22/17 09:00 01/21/18 08:59 12/24/17 08:31 Morphine Sulfate (Morphine Sulfate) 2 mg Q4H PRN IVP Severe Pain (Pain Scale 7-10) 12/21/17 14:45 12/28/17 14:44 Nitroglycerin (Ntg) 0.4 mg Q5M X 3 DOSES PRN SL Prn Chest Pain 12/21/17 14:45 01/20/18 14:44 Olanzapine (ZyPREXA) 15 mg QHS ORAL 12/21/17 21:00 01/20/18 20:59 12/23/17 21:56 Ondansetron HCl (Zofran) 4 mg Q6H PRN IVP Nausea & Vomiting 12/21/17 14:45 01/20/18 14:44 12/21/17 20:32 Pantoprazole (Protonix) 40 mg DAILY ORAL 12/22/17 09:00 01/21/18 08:59 12/24/17 08:31 Polyethylene Glycol (Miralax) 17 gm HSPRN PRN ORAL Constipation 12/21/17 21:00 01/20/18 20:59 Quetiapine Fumarate (SEROquel) 50 mg QHS ORAL 12/21/17 21:00 01/20/18 20:59 12/23/17 21:53 Sodium Chloride 1,000 ml @ 50 mls/hr Q20H IV 12/21/17 17:00 01/20/18 16:59 12/24/17 05:19 Temazepam (Restoril) 15 mg HSPRN PRN ORAL Insomnia 12/21/17 21:00 12/28/17 20:59 Theophylline (Norberto-Dur) 100 mg EVERY 12 HOURS ORAL 12/21/17 21:00 01/20/18 20:59 12/24/17 08:31 Herman Bacon MD Dec 24, 2017 10:12
[2017-12-24 12:00] VITALS: BP 99/71
--- NOTE | 2017-12-24 14:16 | Neurology Progress Note ---
Interim History Interim History Interim History Ms. Bishop feels well. She has had no dizziness. The mind is clear. She has had no change in her abnormal movements. She denies any new neurologic problems. Her cognitive function is stable. When she stands and walks she is steady. She had a fever and that is being investigated. Review of Systems Neuro Review of Systems Benign. Objective Physical Exam Last Vital Signs Date Time Temp Pulse Resp B/P (MAP) Pulse Ox O2 Delivery O2 Flow Rate FiO2 12/24/17 12:00 98.2 71 22 99/71 (80) 99 98.2 12/24/17 09:00 Room Air Laboratory Tests Test 12/24/17 05:40 White Blood Count 6.6 K/UL (4.8-10.8) Red Blood Count 3.84 M/UL (4.20-5.40) L Hemoglobin 11.1 G/DL (12.0-16.0) L Hematocrit 35.0 % (37.0-47.0) L Mean Corpuscular Volume 91 FL (80-99) Mean Corpuscular Hemoglobin 28.8 PG (27.0-31.0) Mean Corpuscular Hemoglobin Concent 31.6 G/DL (32.0-36.0) L Red Cell Distribution Width 12.1 % (11.6-14.8) Platelet Count 205 K/UL (150-450) Mean Platelet Volume 5.3 FL (6.5-10.1) L Neutrophils (%) (Auto) 67.2 % (45.0-75.0) Lymphocytes (%) (Auto) 16.3 % (20.0-45.0) L Monocytes (%) (Auto) 10.4 % (1.0-10.0) H Eosinophils (%) (Auto) 5.0 % (0.0-3.0) H Basophils (%) (Auto) 1.1 % (0.0-2.0) Sodium Level 144 MMOL/L (136-145) Potassium Level 3.7 MMOL/L (3.5-5.1) Chloride Level 110 MMOL/L (98-107) H Carbon Dioxide Level 28 MMOL/L (21-32) Anion Gap 6 mmol/L (5-15) Blood Urea Nitrogen 18 mg/dL (7-18) Creatinine 0.9 MG/DL (0.55-1.30) Estimat Glomerular Filtration Rate > 60 mL/min (>60) Glucose Level 92 MG/DL (74-106) Calcium Level 8.5 MG/DL (8.5-10.1) Neurologic Exam Objective PHYSICAL EXAMINATION: GENERAL: She is a well-developed, well-nourished, pleasant lady, lying in bed, exhibiting orobuccolingual, limb, and trunk dyskinesias and dystonias. HEAD: Normocephalic and atraumatic. EENT: Examination benign. NECK: No neck rigidity was observed. NEUROLOGICAL EXAMINATION: MENTAL STATUS EXAMINATION: She was awake and alert. She was oriented to person, place, and time except for the exact date. She was able to recall 3/3 words immediately, but could only remember 2/3 words in 1 minute and 3 minutes on the first trial. On the second trial, she was able to remember all 3 words in 1 minute and 3 minutes. She was able to remember presidents Trump through Andino Sr. with minimal hints. Her mathematical skills were fairly good. Her visuospatial function was preserved. SPEECH: She had no dysarthria. LANGUAGE: She had a mild anomia for low-frequency words. CRANIAL NERVE EXAMINATION: II: The visual matias were intact on confrontation testing. III, IV & : The external ocular movements were full and the pupils 3 mm in diameter, equal, round, regular, and reactive to light. V: She had normal facial sensations, and the temporales, masseters, and pterygoids functioned normally. VII: She had normal facial expressions and no facial asymmetry. VIII: She was able to hear well bilaterally and had no nystagmus. IX: The palate moved symmetrically on phonation. X: She had no hoarseness of voice. XI: The sternocleidomastoids and trapezii functioned normally. XII: The tongue was in the midline without any fasciculations or atrophy. MOTOR SYSTEM: The tone was normal in all four extremities. Examination of muscle mass revealed no focal wasting. Examination of power revealed grade 5/5 power in all muscle groups tested. SENSORY EXAMINATION: She had intact sensations to pinprick, light touch, and graphesthesia. Position sense was diminished in the toes bilaterally, but was normal in the fingers bilaterally. REFLEXES: Trace+ and bilaterally symmetrical at the biceps, triceps, brachioradialis, and knees. 0 at both ankles. The plantar responses were flexor bilaterally. COORDINATION: She performed well on [id number] and [id number] testing. On Romberg test, she swayed, but did not fall to one side or the other. STANCE: She stood up independently. GAIT: She walked relatively well independently. ABNORMAL MOVEMENTS: Orobuccolingual, limb, and trunk dystonia and dyskinesia: G 2. Impression/Recommendations Diagnostic Impression 1. Ms. 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 2. She feels feels well. She has had no dizziness. The mind is clear. She has had no change in her abnormal movements. She denies any new neurologic problems. Her cognitive function is stable. When she stands and walks she is steady. She had a fever and that is being investigated. 3. On neurological examination, at this time, she does have mild problems with orientation, recent and remote memory, decreased position sense in the toes bilaterally, globally diminished deep tendon reflexes, and orobuccolingual, limb , and trunk dystonia and dyskinesias. 4. Laboratory data obtained thus far have revealed a mild anemia with a hemoglobin of 11.4 G. The chemistry panel is essentially benign except for low albumin at 2.7. The toxicology screen is benign and her urine analysis reveals 2+ leukocyte esterase, 2-4 red blood cells, and 5-10 white blood cells per high- power field. Her B12 and TSH are normal but her folate is low at 8.1. 5. The patient's history and neurological examination are most compatible with dizziness, which in her case is the lightheaded feeling when she stands up from sitting or lying down position most probably related to postural blood pressure changes, which may in turn be related to decreased intravascular volume in this patient, who was not eating and drinking too well. The dizziness has resolved now. 6. The patient's dystonic and dyskinetic movement disorder could either be due to drug-related etiology as she is on neuroleptics and most probably has been on neuroleptics for some time. 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 7. The patient does have a neuropathic process. She is folic acid deficient which could be contributing to her neuropathy. Recommendations 1. Continue present management. 2. Keep well hydrated. 3. Folic acid 1 mg q day. 4. Her diagnosis of Davis's disease, should be confirmed or refuted. If confirmed, it may be worth considering starting the patient on tetrabenazine to help her with her movement disorder. 5. The patient should be kept as active as possible. Nikolai Sauer M.D., M.S.P.Rhett. NIKOLAI SAUER Dec 24, 2017 14:16
[2017-12-24 16:00] VITALS: BP 107/57
--- NOTE | 2017-12-24 18:21 | Cardiology Progress Note ---
Assessment/Plan Assessment/Plan 1. Hypotension, BP has slightly improved, continue hydration, asymptomatic. 2. History of diabetes mellitus. 3. History of psychiatric disorder. 4. History of dementia. Subjective Subjective No cardiac events. Denies chest pain or SOB. Objective Last 24 Hour Vital Signs Date Time Temp Pulse Resp B/P (MAP) Pulse Ox O2 Delivery O2 Flow Rate FiO2 12/24/17 16:00 97.1 53 19 107/57 (74) 92 97.1 12/24/17 12:00 98.2 71 22 99/71 (80) 99 98.2 12/24/17 09:00 Room Air 12/24/17 08:00 97.1 70 22 102/62 (75) 96 97.1 12/24/17 04:00 98.1 60 19 101/54 (70) 98.1 12/24/17 00:00 98.6 56 19 100/57 (71) 92 98.6 12/24/17 00:00 98.6 56 19 100/57 (71) 92 98.6 12/23/17 21:00 Room Air 12/23/17 20:00 99.3 62 19 117/55 (75) 92 99.3 12/23/17 18:46 98.3 Intake and Output 12/23/17 12/24/17 19:00 07:00 Intake Total 810 ml 550 ml Balance 810 ml 550 ml Intake Oral 260 ml IV Total 550 ml 550 ml # Voids 1 2 # Bowel Movements 1 Laboratory Tests Test 12/24/17 05:40 White Blood Count 6.6 K/UL (4.8-10.8) Red Blood Count 3.84 M/UL (4.20-5.40) L Hemoglobin 11.1 G/DL (12.0-16.0) L Hematocrit 35.0 % (37.0-47.0) L Mean Corpuscular Volume 91 FL (80-99) Mean Corpuscular Hemoglobin 28.8 PG (27.0-31.0) Mean Corpuscular Hemoglobin Concent 31.6 G/DL (32.0-36.0) L Red Cell Distribution Width 12.1 % (11.6-14.8) Platelet Count 205 K/UL (150-450) Mean Platelet Volume 5.3 FL (6.5-10.1) L Neutrophils (%) (Auto) 67.2 % (45.0-75.0) Lymphocytes (%) (Auto) 16.3 % (20.0-45.0) L Monocytes (%) (Auto) 10.4 % (1.0-10.0) H Eosinophils (%) (Auto) 5.0 % (0.0-3.0) H Basophils (%) (Auto) 1.1 % (0.0-2.0) Sodium Level 144 MMOL/L (136-145) Potassium Level 3.7 MMOL/L (3.5-5.1) Chloride Level 110 MMOL/L (98-107) H Carbon Dioxide Level 28 MMOL/L (21-32) Anion Gap 6 mmol/L (5-15) Blood Urea Nitrogen 18 mg/dL (7-18) Creatinine 0.9 MG/DL (0.55-1.30) Estimat Glomerular Filtration Rate > 60 mL/min (>60) Glucose Level 92 MG/DL (74-106) Calcium Level 8.5 MG/DL (8.5-10.1) Microbiology Date/Time Source Procedure Growth Status 12/22/17 19:00 Blood Blood Culture - Preliminary NO GROWTH AFTER 24 HOURS Resulted 12/22/17 18:45 Blood Blood Culture - Preliminary NO GROWTH AFTER 24 HOURS Resulted Objective HEENT: Atraumatic and normocephalic. Anicteric. Pupils are equal, round, and reactive to light and accommodation. Extraocular muscles intact. NECK: JVP less than 5 cm. No carotid bruit. Carotid upstrokes is 2+ bilaterally. CVS: Normal S1, S2. Regular rate and rhythm. No murmurs, gallops, or rubs. PMI is at fourth intercostal space in the midclavicular line. LUNGS: Clear to auscultation bilaterally. ABDOMEN: Soft, nontender, and nondistended. No hepatosplenomegaly. Positive bowel sounds. EXTREMITIES: There is no evidence of edema, clubbing, or cyanosis. Milind Cruz MD Dec 24, 2017 18:21
--- NOTE | 2017-12-24 18:22 | Pulmonology Progress Note ---
Assessment/Plan Problems: (1) Sepsis (2) Intractable nausea and vomiting (3) COPD (chronic obstructive pulmonary disease) (4) Dementia (5) Gastric ulcer Assessment/Plan no new complains abx as per ID respiratory treatment symptomatic treatment all reviewed dvt prophylaxis. Subjective ROS Limited/Unobtainable: No Allergies: Coded Allergies: ASPIRIN (Verified Allergy, Unknown, 06/16/16) CELECOXIB (Verified Allergy, Unknown, 06/16/16) IBUPROFEN (Verified Allergy, Unknown, 06/16/16) Objective Last 24 Hour Vital Signs Date Time Temp Pulse Resp B/P (MAP) Pulse Ox O2 Delivery O2 Flow Rate FiO2 12/24/17 16:00 97.1 53 19 107/57 (74) 92 97.1 12/24/17 12:00 98.2 71 22 99/71 (80) 99 98.2 12/24/17 09:00 Room Air 12/24/17 08:00 97.1 70 22 102/62 (75) 96 97.1 12/24/17 04:00 98.1 60 19 101/54 (70) 98.1 12/24/17 00:00 98.6 56 19 100/57 (71) 92 98.6 12/24/17 00:00 98.6 56 19 100/57 (71) 92 98.6 12/23/17 21:00 Room Air 12/23/17 20:00 99.3 62 19 117/55 (75) 92 99.3 12/23/17 18:46 98.3 Intake and Output 12/23/17 12/24/17 19:00 07:00 Intake Total 810 ml 550 ml Balance 810 ml 550 ml Intake Oral 260 ml IV Total 550 ml 550 ml # Voids 1 2 # Bowel Movements 1 Objective General Appearance: WD/WN HEENT: atraumatic Respiratory/Chest: chest wall non-tender, lungs clear Breasts: no masses Cardiovascular: normal peripheral pulses Abdomen: soft, non tender, non distended Skin: no rash Microbiology Date/Time Source Procedure Growth Status 12/22/17 19:00 Blood Blood Culture - Preliminary NO GROWTH AFTER 24 HOURS Resulted 12/22/17 18:45 Blood Blood Culture - Preliminary NO GROWTH AFTER 24 HOURS Resulted Laboratory Tests 12/24/17 05:40: White Blood Count 6.6, Red Blood Count 3.84L, Hemoglobin 11.1L, Hematocrit 35.0L , Mean Corpuscular Volume 91, Mean Corpuscular Hemoglobin 28.8, Mean Corpuscular Hemoglobin Concent 31.6L, Red Cell Distribution Width 12.1, Platelet Count 205, Mean Platelet Volume 5.3L, Neutrophils (%) (Auto) 67.2, Lymphocytes (%) (Auto) 16.3L, Monocytes (%) (Auto) 10.4H, Eosinophils (%) (Auto ) 5.0H, Basophils (%) (Auto) 1.1, Sodium Level 144, Potassium Level 3.7, Chloride Level 110H, Carbon Dioxide Level 28, Anion Gap 6, Blood Urea Nitrogen 18, Creatinine 0.9, Estimat Glomerular Filtration Rate > 60, Glucose Level 92, Calcium Level 8.5 Current Medications Medications (Trade) Dose Ordered Sig/Toyin Route PRN Reason Start Time Stop Time Status Last Admin Dose Admin Acetaminophen (Tylenol) 650 mg Q4H PRN ORAL T>100.5 12/21/17 14:45 01/20/18 14:44 12/24/17 08:46 Al Hydroxide/Mg Hydroxide (Mylanta II) 30 ml Q6H PRN ORAL dyspepsia 12/21/17 14:45 01/20/18 14:44 Diphenhydramine HCl (Benadryl) 25 mg Q6H PRN ORAL Itching/Pruritis 12/21/17 14:45 01/20/18 14:44 Duloxetine HCl (Cymbalta) 30 mg DAILY ORAL 12/22/17 09:00 01/21/18 08:59 12/24/17 08:31 Folic Acid (Folate) 1 mg DAILY ORAL 12/24/17 09:00 01/23/18 08:59 12/24/17 08:31 Gabapentin (Neurontin) 400 mg TWICE A DAY ORAL 12/21/17 18:00 01/20/18 17:59 12/24/17 17:48 Heparin Sodium (Porcine) (Heparin 5000 units/ml) 5,000 units EVERY 12 HOURS SUBQ 12/21/17 21:00 01/20/18 20:59 12/24/17 08:36 Memantine (Namenda) 5 mg TWICE A DAY ORAL 12/21/17 18:00 01/20/18 17:59 12/24/17 17:48 Montelukast Sodium (Singulair) 10 mg DAILY ORAL 12/22/17 09:00 01/21/18 08:59 12/24/17 08:31 Morphine Sulfate (Morphine Sulfate) 2 mg Q4H PRN IVP Severe Pain (Pain Scale 7-10) 12/21/17 14:45 12/28/17 14:44 Nitroglycerin (Ntg) 0.4 mg Q5M X 3 DOSES PRN SL Prn Chest Pain 12/21/17 14:45 01/20/18 14:44 Olanzapine (ZyPREXA) 15 mg QHS ORAL 12/21/17 21:00 01/20/18 20:59 12/23/17 21:56 Ondansetron HCl (Zofran) 4 mg Q6H PRN IVP Nausea & Vomiting 12/21/17 14:45 01/20/18 14:44 12/21/17 20:32 Pantoprazole (Protonix) 40 mg DAILY ORAL 12/22/17 09:00 01/21/18 08:59 12/24/17 08:31 Polyethylene Glycol (Miralax) 17 gm HSPRN PRN ORAL Constipation 12/21/17 21:00 01/20/18 20:59 Quetiapine Fumarate (SEROquel) 50 mg QHS ORAL 12/21/17 21:00 01/20/18 20:59 12/23/17 21:53 Sodium Chloride 1,000 ml @ 50 mls/hr Q20H IV 12/21/17 17:00 01/20/18 16:59 12/24/17 05:19 Temazepam (Restoril) 15 mg HSPRN PRN ORAL Insomnia 12/21/17 21:00 12/28/17 20:59 Theophylline (Norberto-Dur) 100 mg EVERY 12 HOURS ORAL 12/21/17 21:00 01/20/18 20:59 12/24/17 08:31 Gabino Almanza MD Dec 24, 2017 18:22
[2017-12-24 20:00] VITALS: BP 115/66
[2017-12-25] VITALS: BP 108/54
--- NOTE | 2017-12-25 01:47 | Consultation ---
DATE OF CONSULTATION: 12/23/2017 "NOTE: POOR AUDIO QUALITY" PSYCHOTHERAPY CONSULTATION PROGRESS NOTE TREATING ATTENDING PHYSICIAN: Antonio Alston D.O. CONSULTING PHYSICIAN: Maycol Allred PsyD. HISTORY OF PRESENT ILLNESS: This is a female patient, 67-year-old, brought into the hospital for abdominal pain. The patient has a history of mental illness including paranoid schizophrenia. The patient is here for abdominal pain, however, has been experiencing anxiety, helplessness, and hopelessness due to her current medical condition. The patient states that whenever she has been seen, the symptoms exacerbated as well as she is complaining of increased anxiety and increased depression. The patient denies suicidal or homicidal thoughts of ideation treatment. The patient with this. However, her medical condition has been causing her distress. PAST MEDICAL HISTORY: Includes a history of muscle weakness and failure to thrive. ALLERGIES: The patient is allergic to aspirin and ibuprofen. SUBSTANCE ABUSE HISTORY: The patient denies history of alcohol use, illicit substance use, or smoking cigarettes. PAST PSYCHIATRIC HISTORY: The patient has history of schizophrenia and has been treated with psychotropic medications in the past. SOCIAL HISTORY: The patient is , she is 67-year-old, who is brought into the hospital for abdominal pain, nausea, vomiting, and . MENTAL STATUS EXAMINATION: The patient is alert and oriented to person, place, and time. Mood is anxious. Affect is congruent. Thought process, disorganized. Thought content, confused. She has poor attention and concentration. Poor insight, judgement, and impulse control. DIAGNOSES: [place] I Paranoid schizophrenia. [place] II Deferred. [place] III Per History and Physical. PLAN: Provide the patient with reality orientation and provide supportive psychotherapy. Provided the patient with immediate coping skills, relaxation exercises, and exercises. Continue with behavioral management. This clinician has reviewed the patient's chart and discussed the treatment with treatment team. Maycol Allred PsyD. DR: Morenita JOB#: [id number] CC:
[2017-12-25 04:00] VITALS: BP 101/52
[2017-12-25] MEDS ORDERED: LORazepam 1mg tab ORAL PRN (04:00)
--- NOTE | 2017-12-25 06:34 | General Progress Note ---
Assessment/Plan Problem List: (1) Nausea & vomiting ICD Codes: R11.2 - Nausea with vomiting, unspecified SNOMED: 32413475 (2) Abdominal pain ICD Codes: R10.9 - Unspecified abdominal pain SNOMED: 18828054 (3) UTI (urinary tract infection) ICD Codes: N39.0 - Urinary tract infection, site not specified SNOMED: 19946923 (4) FTT (failure to thrive) in adult ICD Codes: R62.7 - Adult failure to thrive SNOMED: 782011052 (5) Weak ICD Codes: R53.1 - Weakness SNOMED: 02083104 (6) Dementia ICD Codes: F03.90 - Unspecified dementia without behavioral disturbance SNOMED: 89388750 Assessment/Plan ot pt diet abx pain control gi f/u cbc bmp am dc plan snf Subjective Constitutional: Reports: weakness Allergies: Coded Allergies: ASPIRIN (Verified Allergy, Unknown, 06/16/16) CELECOXIB (Verified Allergy, Unknown, 06/16/16) IBUPROFEN (Verified Allergy, Unknown, 06/16/16) All Systems: reviewed and negative except above Subjective sleepy in bed Objective Last 24 Hour Vital Signs Date Time Temp Pulse Resp B/P (MAP) Pulse Ox O2 Delivery O2 Flow Rate FiO2 12/25/17 04:00 98.4 19 101/52 (68) 91 98.4 12/25/17 00:00 98.7 67 19 108/54 (72) 93 98.7 12/24/17 21:00 Room Air 12/24/17 20:00 99.3 60 19 115/66 (82) 94 99.3 12/24/17 16:00 97.1 53 19 107/57 (74) 92 97.1 12/24/17 12:00 98.2 71 22 99/71 (80) 99 98.2 12/24/17 09:00 Room Air 12/24/17 08:00 97.1 70 22 102/62 (75) 96 97.1 Intake and Output 12/24/17 12/25/17 19:00 07:00 Intake Total 1320 ml 670 ml Balance 1320 ml 670 ml Intake Oral 720 ml IV Total 600 ml 550 ml Tube Feeding 120 ml # Voids 5 3 # Bowel Movements 1 Height (Feet): 5 Height (Inches): 8.00 Weight (Pounds): 150 General Appearance: lethargic EENT: normal ENT inspection Neck: normal alignment Cardiovascular: normal peripheral pulses, normal rate, regular rhythm Respiratory/Chest: chest wall non-tender, lungs clear, normal breath sounds Abdomen: normal bowel sounds, non tender, soft Extremities: normal inspection Edema: no edema noted Arm (L), no edema noted Arm (R), no edema noted Leg (L), no edema noted Leg (R), no edema noted Pedal (L), no edema noted Pedal (R), no edema noted Generalized Neurologic: motor weakness Skin: normal pigmentation, warm/dry Antonio Alston DO Dec 25, 2017 06:34
[2017-12-25 08:00] VITALS: BP 115/56
--- NOTE | 2017-12-25 08:38 | General Progress Note ---
Assessment/Plan Problem List: (1) Abdominal pain ICD Codes: R10.9 - Unspecified abdominal pain SNOMED: 80538031 (2) IBS (irritable bowel syndrome) ICD Codes: K58.9 - Irritable bowel syndrome without diarrhea SNOMED: 11577100 (3) Anemia ICD Codes: D64.9 - Anemia, unspecified SNOMED: 593046275 (4) Abdominal pain ICD Codes: R10.9 - Unspecified abdominal pain SNOMED: 12715448 (5) GERD (gastroesophageal reflux disease) ICD Codes: K21.9 - Gastro-esophageal reflux disease without esophagitis SNOMED: 415534027 (6) PUD (peptic ulcer disease) ICD Codes: K27.9 - Peptic ulcer, site unspecified, unspecified as acute or chronic, without hemorrhage or perforation SNOMED: 33660172 Assessment/Plan PPI + carafate monitor for diarrhea, send stool studies/cdiff if present zofran prn OB stool r/o GI bleed monitor H&H, prn transfusions bowel regime fu labs anemia work up plan GI procedures if stool ob positive otherwise fu as out patient Subjective ROS Limited/Unobtainable: Yes Allergies: Coded Allergies: ASPIRIN (Verified Allergy, Unknown, 06/16/16) CELECOXIB (Verified Allergy, Unknown, 06/16/16) IBUPROFEN (Verified Allergy, Unknown, 06/16/16) Subjective mild abd pain Objective Last 24 Hour Vital Signs Date Time Temp Pulse Resp B/P (MAP) Pulse Ox O2 Delivery O2 Flow Rate FiO2 12/25/17 04:00 98.4 19 101/52 (68) 91 98.4 12/25/17 00:00 98.7 67 19 108/54 (72) 93 98.7 12/24/17 21:00 Room Air 12/24/17 20:00 99.3 60 19 115/66 (82) 94 99.3 12/24/17 16:00 97.1 53 19 107/57 (74) 92 97.1 12/24/17 12:00 98.2 71 22 99/71 (80) 99 98.2 12/24/17 09:00 Room Air Intake and Output 12/24/17 12/25/17 19:00 07:00 Intake Total 1320 ml 670 ml Balance 1320 ml 670 ml Intake Oral 720 ml IV Total 600 ml 550 ml Tube Feeding 120 ml # Voids 5 3 # Bowel Movements 1 Height (Feet): 5 Height (Inches): 8.00 Weight (Pounds): 150 General Appearance: alert EENT: normal ENT inspection Neck: supple Cardiovascular: normal rate Respiratory/Chest: decreased breath sounds Abdomen: normal bowel sounds, non tender, soft Extremities: non-tender Ortega Crump MD Dec 25, 2017 08:38
[2017-12-25] MEDS: Theophylline ER 100mg ORAL SCH ×2 (09:16→21:17)
[2017-12-25] MEDS: Memantine 5 MG TAB ORAL SCH ×2 (09:16→17:39)
[2017-12-25] MEDS: Montelukast 10mg tablet ORAL SCH (09:16)
[2017-12-25] MEDS: DULoxetine 30mg cap ORAL SCH (09:16)
[2017-12-25] MEDS: Heparin 5000 units/ml inj SUBQ SCH ×2 (09:19→21:18)
[2017-12-25 12:00] VITALS: BP 111/58
--- NOTE | 2017-12-25 12:24 | Pulmonology Progress Note ---
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 Subjective ROS Limited/Unobtainable: No Constitutional: Reports: no symptoms HEENT: Repors: no symptoms Respiratory: Reports: no symptoms Allergies: Coded Allergies: ASPIRIN (Verified Allergy, Unknown, 06/16/16) CELECOXIB (Verified Allergy, Unknown, 06/16/16) IBUPROFEN (Verified Allergy, Unknown, 06/16/16) Objective Last 24 Hour Vital Signs Date Time Temp Pulse Resp B/P (MAP) Pulse Ox O2 Delivery O2 Flow Rate FiO2 12/25/17 10:50 99.0 12/25/17 09:51 99.0 12/25/17 09:00 Room Air 12/25/17 08:00 99.0 75 18 115/56 (75) 93 99.0 12/25/17 04:00 98.4 19 101/52 (68) 91 98.4 12/25/17 00:00 98.7 67 19 108/54 (72) 93 98.7 12/24/17 21:00 Room Air 12/24/17 20:00 99.3 60 19 115/66 (82) 94 99.3 12/24/17 16:00 97.1 53 19 107/57 (74) 92 97.1 Intake and Output 12/24/17 12/25/17 19:00 07:00 Intake Total 1320 ml 670 ml Balance 1320 ml 670 ml Intake Oral 720 ml IV Total 600 ml 550 ml Tube Feeding 120 ml # Voids 5 3 # Bowel Movements 1 General Appearance: WD/WN HEENT: normocephalic, atraumatic Respiratory/Chest: chest wall non-tender, lungs clear Breasts: no masses Cardiovascular: normal peripheral pulses Abdomen: normal bowel sounds, soft, non tender Genitourinary: normal external genitalia Skin: no rash, no lesions Microbiology Date/Time Source Procedure Growth Status 12/22/17 19:00 Blood Blood Culture - Preliminary NO GROWTH AFTER 48 HOURS Resulted 12/22/17 18:45 Blood Blood Culture - Preliminary NO GROWTH AFTER 48 HOURS Resulted Laboratory Tests 12/25/17 11:15: White Blood Count [Pending], Red Blood Count [Pending], Hemoglobin [Pending], Hematocrit [Pending], Mean Corpuscular Volume [Pending], Mean Corpuscular Hemoglobin [Pending], Mean Corpuscular Hemoglobin Concent [Pending], Red Cell Distribution Width [Pending], Platelet Count [Pending], Mean Platelet Volume [ Pending], Neutrophils (%) (Auto) [Pending], Lymphocytes (%) (Auto) [Pending], Monocytes (%) (Auto) [Pending], Eosinophils (%) (Auto) [Pending], Basophils (%) (Auto) [Pending], Sodium Level [Pending], Potassium Level [Pending], Chloride Level [Pending], Carbon Dioxide Level [Pending], Blood Urea Nitrogen [Pending], Creatinine [Pending], Estimat Glomerular Filtration Rate [Pending], Glucose Level [Pending], Calcium Level [Pending], Iron Level [Pending], Unsaturated Iron Binding [Pending], Carcinoembryonic Antigen [Pending] Current Medications Medications (Trade) Dose Ordered Sig/Toyin Route PRN Reason Start Time Stop Time Status Last Admin Dose Admin Acetaminophen (Tylenol) 650 mg Q4H PRN ORAL Mild Pain/Temp > 100.5 12/25/17 09:30 01/20/18 09:29 12/25/17 09:51 Al Hydroxide/Mg Hydroxide (Mylanta II) 30 ml Q6H PRN ORAL dyspepsia 12/21/17 14:45 01/20/18 14:44 Diphenhydramine HCl (Benadryl) 25 mg Q6H PRN ORAL Itching/Pruritis 12/21/17 14:45 01/20/18 14:44 Duloxetine HCl (Cymbalta) 30 mg DAILY ORAL 12/22/17 09:00 01/21/18 08:59 12/25/17 09:16 Folic Acid (Folate) 1 mg DAILY ORAL 12/24/17 09:00 01/23/18 08:59 12/25/17 09:17 Gabapentin (Neurontin) 400 mg TWICE A DAY ORAL 12/21/17 18:00 01/20/18 17:59 12/25/17 09:16 Heparin Sodium (Porcine) (Heparin 5000 units/ml) 5,000 units EVERY 12 HOURS SUBQ 12/21/17 21:00 01/20/18 20:59 12/25/17 09:19 Lorazepam (Ativan) 1 mg Q6H PRN ORAL For Anxiety 12/25/17 04:00 01/01/18 03:59 Memantine (Namenda) 5 mg TWICE A DAY ORAL 12/21/17 18:00 01/20/18 17:59 12/25/17 09:16 Montelukast Sodium (Singulair) 10 mg DAILY ORAL 12/22/17 09:00 01/21/18 08:59 12/25/17 09:16 Morphine Sulfate (Morphine Sulfate) 2 mg Q4H PRN IVP Severe Pain (Pain Scale 7-10) 12/21/17 14:45 12/28/17 14:44 Nitroglycerin (Ntg) 0.4 mg Q5M X 3 DOSES PRN SL Prn Chest Pain 12/21/17 14:45 01/20/18 14:44 Olanzapine (ZyPREXA) 15 mg QHS ORAL 12/21/17 21:00 01/20/18 20:59 12/24/17 20:48 Ondansetron HCl (Zofran) 4 mg Q6H PRN IVP Nausea & Vomiting 12/21/17 14:45 01/20/18 14:44 12/21/17 20:32 Pantoprazole (Protonix) 40 mg DAILY ORAL 12/22/17 09:00 01/21/18 08:59 12/25/17 09:16 Polyethylene Glycol (Miralax) 17 gm HSPRN PRN ORAL Constipation 12/21/17 21:00 01/20/18 20:59 Quetiapine Fumarate (SEROquel) 50 mg QHS ORAL 12/21/17 21:00 01/20/18 20:59 12/24/17 20:49 Sodium Chloride 1,000 ml @ 50 mls/hr Q20H IV 12/21/17 17:00 01/20/18 16:59 12/25/17 01:08 Temazepam (Restoril) 15 mg HSPRN PRN ORAL Insomnia 12/21/17 21:00 12/28/17 20:59 Theophylline (Norberto-Dur) 100 mg EVERY 12 HOURS ORAL 12/21/17 21:00 01/20/18 20:59 12/25/17 09:16 Gabino Almanza MD Dec 25, 2017 12:24
[2017-12-25 12:25] LABS: EOSINOPHILS % (AUTO) 3.8 % (0.0-3.0); HEMATOCRIT 34.7 % (37.0-47.0); HEMOGLOBIN 11.1 G/DL (12.0-16.0); LYMPHOCYTES % (AUTO) 14.4 % (20.0-45.0); MEAN CORPUSCULAR VOLUME 91 FL (80-99); MONOCYTES % (AUTO) 8.7 % (1.0-10.0); NEUTROPHILS % (AUTO) 72.1 % (45.0-75.0); PLATELET COUNT 199 K/UL (150-450); RED BLOOD COUNT 3.81 M/UL (4.20-5.40); RED CELL DISTRIBUTION WIDTH 11.9 % (11.6-14.8); WHITE BLOOD COUNT 6.4 K/UL (4.8-10.8)
[2017-12-25 12:33] LABS: ANION GAP 6 mmol/L (5-15); BLOOD UREA NITROGEN 13 mg/dL (7-18); CALCIUM 8.7 MG/DL (8.5-10.1); CARBON DIOXIDE 31 MMOL/L (21-32); CHLORIDE 108 MMOL/L (98-107); CREATININE 0.8 MG/DL (0.55-1.30); POTASSIUM 3.9 MMOL/L (3.5-5.1); SODIUM 145 MMOL/L (136-145)
[2017-12-25 12:39] LABS: % IRON SATURATION 21 % (15-50); IRON 62 ug/dL (50-175); TOTAL IRON BINDING CAPACITY 297 ug/dL (250-450)
--- NOTE | 2017-12-25 13:31 | Neurology Progress Note ---
Interim History Interim History Interim History Ms. Bishop feels relatively well. She tells me that she has had fevers as high as 101 degrees. She has had no dizziness. The mind is clear. She has had no change in her abnormal movements. She denies any new neurologic problems. Her cognitive function is stable. When she stands and walks she is steady. Review of Systems Neuro Review of Systems Benign. Objective Physical Exam Last Vital Signs Date Time Temp Pulse Resp B/P (MAP) Pulse Ox O2 Delivery O2 Flow Rate FiO2 12/25/17 10:50 99.0 12/25/17 09:00 Room Air 12/25/17 08:00 75 18 115/56 (75) 93 Laboratory Tests Test 12/25/17 11:15 White Blood Count 6.4 K/UL (4.8-10.8) Red Blood Count 3.81 M/UL (4.20-5.40) L Hemoglobin 11.1 G/DL (12.0-16.0) L Hematocrit 34.7 % (37.0-47.0) L Mean Corpuscular Volume 91 FL (80-99) Mean Corpuscular Hemoglobin 29.1 PG (27.0-31.0) Mean Corpuscular Hemoglobin Concent 32.0 G/DL (32.0-36.0) Red Cell Distribution Width 11.9 % (11.6-14.8) Platelet Count 199 K/UL (150-450) Mean Platelet Volume 5.8 FL (6.5-10.1) L Neutrophils (%) (Auto) 72.1 % (45.0-75.0) Lymphocytes (%) (Auto) 14.4 % (20.0-45.0) L Monocytes (%) (Auto) 8.7 % (1.0-10.0) Eosinophils (%) (Auto) 3.8 % (0.0-3.0) H Basophils (%) (Auto) 1.0 % (0.0-2.0) Sodium Level 145 MMOL/L (136-145) Potassium Level 3.9 MMOL/L (3.5-5.1) Chloride Level 108 MMOL/L (98-107) H Carbon Dioxide Level 31 MMOL/L (21-32) Anion Gap 6 mmol/L (5-15) Blood Urea Nitrogen 13 mg/dL (7-18) Creatinine 0.8 MG/DL (0.55-1.30) Estimat Glomerular Filtration Rate > 60 mL/min (>60) Glucose Level 95 MG/DL (74-106) Calcium Level 8.7 MG/DL (8.5-10.1) Iron Level 62 ug/dL (50-175) Total Iron Binding Capacity 297 ug/dL (250-450) Percent Iron Saturation 21 % (15-50) Unsaturated Iron Binding 235 ug/dL (112-346) Carcinoembryonic Antigen Pending Neurologic Exam Objective PHYSICAL EXAMINATION: GENERAL: She is a well-developed, well-nourished, pleasant lady, lying in bed, exhibiting orobuccolingual, limb, and trunk dyskinesias and dystonias. HEAD: Normocephalic and atraumatic. EENT: Examination benign. NECK: No neck rigidity was observed. NEUROLOGICAL EXAMINATION: MENTAL STATUS EXAMINATION: She was awake and alert. She was oriented to person, place, and time except for the exact date. She was able to recall 3/3 words immediately, but could only remember 2/3 words in 1 minute and 3 minutes on the first trial. On the second trial, she was able to remember all 3 words in 1 minute and 3 minutes. She was able to remember presidents Trump through Andino Sr. with minimal hints. Her mathematical skills were fairly good. Her visuospatial function was preserved. SPEECH: She had no dysarthria. LANGUAGE: She had a mild anomia for low-frequency words. CRANIAL NERVE EXAMINATION: II: The visual matias were intact on confrontation testing. III, IV & : The external ocular movements were full and the pupils 3 mm in diameter, equal, round, regular, and reactive to light. V: She had normal facial sensations, and the temporales, masseters, and pterygoids functioned normally. VII: She had normal facial expressions and no facial asymmetry. VIII: She was able to hear well bilaterally and had no nystagmus. IX: The palate moved symmetrically on phonation. X: She had no hoarseness of voice. XI: The sternocleidomastoids and trapezii functioned normally. XII: The tongue was in the midline without any fasciculations or atrophy. MOTOR SYSTEM: The tone was normal in all four extremities. Examination of muscle mass revealed no focal wasting. Examination of power revealed grade 5/5 power in all muscle groups tested. SENSORY EXAMINATION: She had intact sensations to pinprick, light touch, and graphesthesia. Position sense was diminished in the toes bilaterally, but was normal in the fingers bilaterally. REFLEXES: Trace+ and bilaterally symmetrical at the biceps, triceps, brachioradialis, and knees. 0 at both ankles. The plantar responses were flexor bilaterally. COORDINATION: She performed well on [id number]-qh-[id number] and fmzl-dj-aldd testing. On Romberg test, she swayed, but did not fall to one side or the other. STANCE: She stood up independently. GAIT: She walked relatively well independently. ABNORMAL MOVEMENTS: Orobuccolingual, limb, and trunk dystonia and dyskinesia: G 2/4. Impression/Recommendations Diagnostic Impression 1. Ms. 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 2. She feels relatively well. She tells me that she has had fevers as high as 101 degrees. She has had no dizziness. The mind is clear. She has had no change in her abnormal movements. She denies any new neurologic problems. Her cognitive function is stable. When she stands and walks she is steady. 3. On neurological examination, at this time, she does have mild problems with orientation, recent and remote memory, decreased position sense in the toes bilaterally, globally diminished deep tendon reflexes, and orobuccolingual, limb , and trunk dystonia and dyskinesias. 4. Laboratory data obtained thus far have revealed a mild anemia with a hemoglobin of 11.4 G. The chemistry panel is essentially benign except for low albumin at 2.7. The toxicology screen is benign and her urine analysis reveals 2+ leukocyte esterase, 2-4 red blood cells, and 5-10 white blood cells per high- power field. Her B12 and TSH are normal but her folate is low at 8.1. 5. The patient's history and neurological examination are most compatible with dizziness, which in her case was a lightheaded feeling when she stood up from sitting or lying down position most probably related to postural blood pressure changes, which may in turn be related to decreased intravascular volume in this patient, who was not eating and drinking too well. The dizziness has resolved now. 6. The patient's dystonic and dyskinetic movement disorder could either be due to drug-related etiology as she is on neuroleptics and most probably has been on neuroleptics for some time. 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 7. The patient does have a neuropathic process. She is folic acid deficient which could be contributing to her neuropathy. Recommendations 1. Continue present management. 2. Keep well hydrated. 3. Folic acid 1 mg q day. 4. Her diagnosis of Jean Marie's disease, should be confirmed or refuted. If confirmed, it may be worth considering starting the patient on tetrabenazine to help her with her movement disorder. 5. The patient should be kept as active as possible. Nikolai Lagunas M.D., M.S.P.NIKOLAI VÁZQUEZ Dec 25, 2017 13:31
[2017-12-25 16:00] VITALS: BP 127/64
[2017-12-25 17:07] LABS: APPEARANCE,URINE CLEAR; BILIRUBIN, URINE NEGATIVE (NEGATIVE); COLOR,URINE PALE YELLOW; GLUCOSE, URINE (UA) NEGATIVE (NEGATIVE); KETONES,URINE NEGATIVE (NEGATIVE); LEUKOCYTE ESTERASE ,URINE 1+ (NEGATIVE); NITRITE,URINE NEGATIVE (NEGATIVE); PH,URINE 6 (4.5-8.0); PROTEIN,URINE NEGATIVE (NEGATIVE); UROBILINOGEN,URINE NORMAL MG/DL (0.0-1.0)
[2017-12-25 20:00] VITALS: BP 135/97
--- NOTE | 2017-12-25 21:00 | Consultation ---
DATE OF CONSULTATION: 12/25/2017 INITIAL PSYCHIATRIC EVALUATION CONSULTING PHYSICIAN: Lizzie Haile M.D. REQUESTING PHYSICIAN: Antonio Alston D.O. HISTORY OF PRESENT ILLNESS: The patient is a 67-year-old female patient who was admitted to [facility] secondary to abdominal pain, nausea, and vomiting. This patient is very confused and disorganized, but she has overlying diagnosis of paranoid schizophrenia with acute exacerbation that is why there was a psychiatric consultation requested to stabilize her mood, reduce agitation, irritability. As far as this patient's admission to the hospital, she has abdominal pain, nausea vomiting, dizziness, headache and that is the reason why she was brought in and in addition to that she has underlying diagnosis of paranoid schizophrenia. She has had mood lability and her cognition has declined below baseline worsened by stress of her medical illness. MEDICAL HISTORY: She has a history of failure to thrive, weakness. ALLERGIES: Aspirin and Motrin SOCIAL HISTORY: This patient is financially supported by [employer] and Medicare. She currently lives in [facility]. SUBSTANCE ABUSE HISTORY: Denies drug and alcohol use. PSYCHIATRIC HISTORY: Paranoid schizophrenia. She has had multiple psychiatric admissions. FAMILY PSYCHIATRIC HISTORY: Denies. STRENGTHS: She is motivated to get better and she has a place to live. WEAKNESSES: She is impulsive and has no support system. MENTAL STATUS EXAMINATION: This is a 67-year-old female. Appearance is disheveled. Attitude irritable and agitated. Affect guarded and restricted. Intellect poor. Mood depressed and anxious. Motor activity, psychomotor agitation. Attention span is poor. Orientation x2. Speech is low volume and slurred. Thought process, disorganized and illogical. Thought content, paranoid delusions. Insight and judgment is poor. As far as her short-term memory, she is able for recall 1/3 after 3 word recall with 5 minute delay and long-term memory is poor based on lack of ability to recall long events in her life such as high school days that she went through. DIAGNOSES: Paranoid schizophrenia with acute exacerbation, rule out dementia with psychosis. PLAN: Plan for this patient is I am going to continue her on Seroquel 50 mg p.o. bedtime, Zyprexa at a dose of 15 mg p.o. bedtime, Namenda at a dose of 5 mg twice a day, Neurontin 400 mg twice a day, and Cymbalta 30 mg p.o. daily. Provided with 20 minutes of cognitive behavioral therapy cognitive behavior therapy session, went over automatic negative thoughts and how to convert, and helping the patient to prevent automatic negative thoughts to more positive thoughts to reduce depression and impulsivity. She was seen and assessed at bedside. A 20 minutes of cognitive behavioral therapy provided. Chart reviewed and discussed with staff. The patient seen and assessed at bedside. She will continue to be followed by Psychiatry throughout hospital course. In addition, I am going to add Ativan 1 mg every 6 hours p.r.n. anxiety and agitation to help the patient with any potential anxiety issues and she will continue to be followed by Psychiatry throughout hospital course. Chart reviewed and discussed staff. The patient seen and assessed at bedside. Continue to follow this patient throughout hospital course. I would like to thank Dr. Antonio Alston for this interesting consultation. Lizzie Haile M.D. DR: Abdifatah JOB#: [id number] CC:
--- NOTE | 2017-12-25 23:38 | Cardiology Progress Note ---
Assessment/Plan Assessment/Plan 1. Hypotension, BP has slightly improved, continue hydration, asymptomatic. 2. History of diabetes mellitus. 3. History of psychiatric disorder. 4. History of dementia. Subjective Subjective No cardiac events. Denies chest pain or SOB. Objective Last 24 Hour Vital Signs Date Time Temp Pulse Resp B/P (MAP) Pulse Ox O2 Delivery O2 Flow Rate FiO2 12/25/17 21:00 Room Air 12/25/17 20:00 99.7 66 20 135/97 (110) 93 99.7 12/25/17 16:00 97.8 81 17 127/64 (85) 96 97.8 12/25/17 12:00 100.2 63 19 111/58 (75) 95 100.2 12/25/17 10:50 99.0 12/25/17 09:51 99.0 12/25/17 09:00 Room Air 12/25/17 08:00 99.0 75 18 115/56 (75) 93 99.0 12/25/17 04:00 98.4 19 101/52 (68) 91 98.4 12/25/17 00:00 98.7 67 19 108/54 (72) 93 98.7 Intake and Output 12/24/17 12/25/17 19:00 07:00 Intake Total 1320 ml 670 ml Balance 1320 ml 670 ml Intake Oral 720 ml IV Total 600 ml 550 ml Tube Feeding 120 ml # Voids 5 3 # Bowel Movements 1 Laboratory Tests Test 12/25/17 11:15 12/25/17 12:35 12/25/17 16:22 White Blood Count 6.4 K/UL (4.8-10.8) Red Blood Count 3.81 M/UL (4.20-5.40) L Hemoglobin 11.1 G/DL (12.0-16.0) L Hematocrit 34.7 % (37.0-47.0) L Mean Corpuscular Volume 91 FL (80-99) Mean Corpuscular Hemoglobin 29.1 PG (27.0-31.0) Mean Corpuscular Hemoglobin Concent 32.0 G/DL (32.0-36.0) Red Cell Distribution Width 11.9 % (11.6-14.8) Platelet Count 199 K/UL (150-450) Mean Platelet Volume 5.8 FL (6.5-10.1) L Neutrophils (%) (Auto) 72.1 % (45.0-75.0) Lymphocytes (%) (Auto) 14.4 % (20.0-45.0) L Monocytes (%) (Auto) 8.7 % (1.0-10.0) Eosinophils (%) (Auto) 3.8 % (0.0-3.0) H Basophils (%) (Auto) 1.0 % (0.0-2.0) Sodium Level 145 MMOL/L (136-145) Potassium Level 3.9 MMOL/L (3.5-5.1) Chloride Level 108 MMOL/L (98-107) H Carbon Dioxide Level 31 MMOL/L (21-32) Anion Gap 6 mmol/L (5-15) Blood Urea Nitrogen 13 mg/dL (7-18) Creatinine 0.8 MG/DL (0.55-1.30) Estimat Glomerular Filtration Rate > 60 mL/min (>60) Glucose Level 95 MG/DL (74-106) Calcium Level 8.7 MG/DL (8.5-10.1) Iron Level 62 ug/dL (50-175) Total Iron Binding Capacity 297 ug/dL (250-450) Percent Iron Saturation 21 % (15-50) Unsaturated Iron Binding 235 ug/dL (112-346) Carcinoembryonic Antigen Pending Stool Occult Blood Pending Urine Color Pale yellow Urine Appearance Clear Urine pH 6 (4.5-8.0) Urine Specific [place] 1.010 (1.005-1.035) Urine Protein Negative (NEGATIVE) Urine Glucose (UA) Negative (NEGATIVE) Urine Ketones Negative (NEGATIVE) Urine Occult Blood 1+ (NEGATIVE) H Urine Nitrite Negative (NEGATIVE) Urine Bilirubin Negative (NEGATIVE) Urine Urobilinogen Normal MG/DL (0.0-1.0) Urine Leukocyte Esterase 1+ (NEGATIVE) H Urine RBC 2-4 /HPF (0 - 2) H Urine WBC 2-4 /HPF (0 - 2) Urine Squamous Epithelial Cells Few /LPF (NONE/OCC) Urine Amorphous Sediment Few /LPF (NONE) H Urine Bacteria Few /HPF (NONE) Objective HEENT: Atraumatic and normocephalic. Anicteric. Pupils are equal, round, and reactive to light and accommodation. Extraocular muscles intact. NECK: JVP less than 5 cm. No carotid bruit. Carotid upstrokes is 2+ bilaterally. CVS: Normal S1, S2. Regular rate and rhythm. No murmurs, gallops, or rubs. PMI is at fourth intercostal space in the midclavicular line. LUNGS: Clear to auscultation bilaterally. ABDOMEN: Soft, nontender, and nondistended. No hepatosplenomegaly. Positive bowel sounds. EXTREMITIES: There is no evidence of edema, clubbing, or cyanosis. Milind Cruz MD Dec 25, 2017 23:38
[2017-12-26] VITALS: BP 112/54
[2017-12-26 04:00] VITALS: BP 119/60
[2017-12-26 08:00] VITALS: BP 113/55
[2017-12-26 08:05] LABS: BASOPHILS % (AUTO) 1.3 % (0.0-2.0); EOSINOPHILS % (AUTO) 4.2 % (0.0-3.0); HEMATOCRIT 36.8 % (37.0-47.0); HEMOGLOBIN 11.7 G/DL (12.0-16.0); LYMPHOCYTES % (AUTO) 19.3 % (20.0-45.0); MEAN CORPUSCULAR VOLUME 91 FL (80-99); MONOCYTES % (AUTO) 9.2 % (1.0-10.0); PLATELET COUNT 211 K/UL (150-450); RED BLOOD COUNT 4.03 M/UL (4.20-5.40); RED CELL DISTRIBUTION WIDTH 12.2 % (11.6-14.8); WHITE BLOOD COUNT 5.4 K/UL (4.8-10.8)
--- NOTE | 2017-12-26 08:24 | Neurology Progress Note ---
Interim History Interim History Interim History Ms. Bishop feels relatively well. She tells me that she has had no fevers. She has had no dizziness. The mind is clear. She has had no change in her abnormal movements. She denies any new neurologic problems. Her cognitive function is stable. When she stands and walks she is steady. Review of Systems Neuro Review of Systems Benign. Objective Physical Exam Last Vital Signs Date Time Temp Pulse Resp B/P (MAP) Pulse Ox O2 Delivery O2 Flow Rate FiO2 12/26/17 04:00 98.1 59 19 119/60 (79) 95 98.1 12/25/17 21:00 Room Air Laboratory Tests Test 12/25/17 11:15 12/25/17 12:35 12/25/17 16:22 12/26/17 07:35 White Blood Count 6.4 K/UL (4.8-10.8) 5.4 K/UL (4.8-10.8) Red Blood Count 3.81 M/UL (4.20-5.40) L 4.03 M/UL (4.20-5.40) L Hemoglobin 11.1 G/DL (12.0-16.0) L 11.7 G/DL (12.0-16.0) L Hematocrit 34.7 % (37.0-47.0) L 36.8 % (37.0-47.0) L Mean Corpuscular Volume 91 FL (80-99) 91 FL (80-99) Mean Corpuscular Hemoglobin 29.1 PG (27.0-31.0) 29.0 PG (27.0-31.0) Mean Corpuscular Hemoglobin Concent 32.0 G/DL (32.0-36.0) 31.8 G/DL (32.0-36.0) L Red Cell Distribution Width 11.9 % (11.6-14.8) 12.2 % (11.6-14.8) Platelet Count 199 K/UL (150-450) 211 K/UL (150-450) Mean Platelet Volume 5.8 FL (6.5-10.1) L 5.8 FL (6.5-10.1) L Neutrophils (%) (Auto) 72.1 % (45.0-75.0) 66.0 % (45.0-75.0) Lymphocytes (%) (Auto) 14.4 % (20.0-45.0) L 19.3 % (20.0-45.0) L Monocytes (%) (Auto) 8.7 % (1.0-10.0) 9.2 % (1.0-10.0) Eosinophils (%) (Auto) 3.8 % (0.0-3.0) H 4.2 % (0.0-3.0) H Basophils (%) (Auto) 1.0 % (0.0-2.0) 1.3 % (0.0-2.0) Sodium Level 145 MMOL/L (136-145) Pending Potassium Level 3.9 MMOL/L (3.5-5.1) Pending Chloride Level 108 MMOL/L (98-107) H Pending Carbon Dioxide Level 31 MMOL/L (21-32) Pending Anion Gap 6 mmol/L (5-15) Blood Urea Nitrogen 13 mg/dL (7-18) Pending Creatinine 0.8 MG/DL (0.55-1.30) Pending Estimat Glomerular Filtration Rate > 60 mL/min (>60) Pending Glucose Level 95 MG/DL (74-106) Pending Calcium Level 8.7 MG/DL (8.5-10.1) Pending Iron Level 62 ug/dL (50-175) Total Iron Binding Capacity 297 ug/dL (250-450) Percent Iron Saturation 21 % (15-50) Unsaturated Iron Binding 235 ug/dL (112-346) Carcinoembryonic Antigen Pending Stool Occult Blood Pending Urine Color Pale yellow Urine Appearance Clear Urine pH 6 (4.5-8.0) Urine Specific [place] 1.010 (1.005-1.035) Urine Protein Negative (NEGATIVE) Urine Glucose (UA) Negative (NEGATIVE) Urine Ketones Negative (NEGATIVE) Urine Occult Blood 1+ (NEGATIVE) H Urine Nitrite Negative (NEGATIVE) Urine Bilirubin Negative (NEGATIVE) Urine Urobilinogen Normal MG/DL (0.0-1.0) Urine Leukocyte Esterase 1+ (NEGATIVE) H Urine RBC 2-4 /HPF (0 - 2) H Urine WBC 2-4 /HPF (0 - 2) Urine Squamous Epithelial Cells Few /LPF (NONE/OCC) Urine Amorphous Sediment Few /LPF (NONE) H Urine Bacteria Few /HPF (NONE) Neurologic Exam Objective PHYSICAL EXAMINATION: GENERAL: She is a well-developed, well-nourished, pleasant lady, lying in bed, exhibiting orobuccolingual, limb, and trunk dyskinesias and dystonias. HEAD: Normocephalic and atraumatic. EENT: Examination benign. NECK: No neck rigidity was observed. NEUROLOGICAL EXAMINATION: MENTAL STATUS EXAMINATION: She was awake and alert. She was oriented to person, place, and time except for the exact date. She was able to recall 3/3 words immediately, but could only remember 2/3 words in 1 minute and 3 minutes on the first trial. On the second trial, she was able to remember all 3 words in 1 minute and 3 minutes. She was able to remember presidents Trump through Andino Sr. with minimal hints. Her mathematical skills were fairly good. Her visuospatial function was preserved. SPEECH: She had no dysarthria. LANGUAGE: She had a mild anomia for low-frequency words. CRANIAL NERVE EXAMINATION: II: The visual matias were intact on confrontation testing. III, IV & : The external ocular movements were full and the pupils 3 mm in diameter, equal, round, regular, and reactive to light. V: She had normal facial sensations, and the temporales, masseters, and pterygoids functioned normally. VII: She had normal facial expressions and no facial asymmetry. VIII: She was able to hear well bilaterally and had no nystagmus. IX: The palate moved symmetrically on phonation. X: She had no hoarseness of voice. XI: The sternocleidomastoids and trapezii functioned normally. XII: The tongue was in the midline without any fasciculations or atrophy. MOTOR SYSTEM: The tone was normal in all four extremities. Examination of muscle mass revealed no focal wasting. Examination of power revealed grade 5/5 power in all muscle groups tested. SENSORY EXAMINATION: She had intact sensations to pinprick, light touch, and graphesthesia. Position sense was diminished in the toes bilaterally, but was normal in the fingers bilaterally. REFLEXES: Trace+ and bilaterally symmetrical at the biceps, triceps, brachioradialis, and knees. 0 at both ankles. The plantar responses were flexor bilaterally. COORDINATION: She performed well on aswhhd-ln-bcpp and pnpq-bx-npqn testing. On Romberg test, she swayed, but did not fall to one side or the other. STANCE: She stood up independently. GAIT: She walked relatively well independently. ABNORMAL MOVEMENTS: Orobuccolingual, limb, and trunk dystonia and dyskinesia: G 2. Impression/Recommendations Diagnostic Impression 1. Ms. Ruth Bishop is a 67-year-old, right-handed, lady, who does have a past history of an undefined psychiatric illness, questionable dementia, generalized weakness, fibromyalgia, arthritis, neuropathy, and what she says is [place]'s disease, who was hospitalized for failure to thrive, nausea, vomiting, stomach upset, and dizziness. 2. She feels relatively well. She tells me that she has had no fevers. She has had no dizziness. The mind is clear. She has had no change in her abnormal movements. She denies any new neurologic problems. Her cognitive function is stable. When she stands and walks she is steady. 3. On neurological examination, at this time, she does have mild problems with orientation, recent and remote memory, decreased position sense in the toes bilaterally, globally diminished deep tendon reflexes, and orobuccolingual, limb , and trunk dystonia and dyskinesias. 4. Laboratory data obtained thus far have revealed a mild anemia with a hemoglobin of 11.4 G. The chemistry panel is essentially benign except for low albumin at 2.7. The toxicology screen is benign and her urine analysis reveals 2+ leukocyte esterase, 2-4 red blood cells, and 5-10 white blood cells per high- power field. Her B12 and TSH are normal but her folate is low at 8.1. 5. The patient's history and neurological examination are most compatible with dizziness, which in her case was a lightheaded feeling when she stood up from sitting or lying down position most probably related to postural blood pressure changes, which may in turn be related to decreased intravascular volume in this patient, who was not eating and drinking too well. The dizziness has resolved now. 6. The patient's dystonic and dyskinetic movement disorder could either be due to drug-related etiology as she is on neuroleptics and most probably has been on neuroleptics for some time. However, the patient tells me that she has [place]'s disease and that could also cause symptoms similar to what we are seeing. 7. The patient does have a neuropathic process. She is folic acid deficient which could be contributing to her neuropathy. Recommendations 1. Continue present management. 2. Keep well hydrated. 3. Folic acid 1 mg q day. 4. Her diagnosis of Jean Marie's disease, should be confirmed or refuted. If confirmed, it may be worth considering starting the patient on tetrabenazine to help her with her movement disorder. 5. The patient should be kept as active as possible. Nikolai Sauer M.D., M.S.P.H. NIKOLAI SAEUR Dec 26, 2017 08:24
[2017-12-26 09:08] LABS: ANION GAP 6 mmol/L (5-15); BLOOD UREA NITROGEN 15 mg/dL (7-18); CARBON DIOXIDE 29 MMOL/L (21-32); CHLORIDE 109 MMOL/L (98-107); CREATININE 0.8 MG/DL (0.55-1.30); POTASSIUM 4.6 MMOL/L (3.5-5.1); SODIUM 144 MMOL/L (136-145)
[2017-12-26] MEDS: Memantine 5 MG TAB ORAL SCH (09:46)
[2017-12-26] MEDS: Montelukast 10mg tablet ORAL SCH (09:47)
[2017-12-26] MEDS: Theophylline ER 100mg ORAL SCH (09:47)
[2017-12-26] MEDS: DULoxetine 30mg cap ORAL SCH (09:47)
[2017-12-26] MEDS: Heparin 5000 units/ml inj SUBQ SCH (09:50)
--- NOTE | 2017-12-26 11:21 | GI Progress Note ---
Assessment/Plan Problems: (1) IBS (irritable bowel syndrome) ICD Codes: K58.9 - Irritable bowel syndrome without diarrhea SNOMED: 30948430 (2) Anemia ICD Codes: D64.9 - Anemia, unspecified SNOMED: 602859427 (3) GERD (gastroesophageal reflux disease) ICD Codes: K21.9 - Gastro-esophageal reflux disease without esophagitis SNOMED: 378092044 (4) Abdominal pain ICD Codes: R10.9 - Unspecified abdominal pain SNOMED: 72530426 (5) PUD (peptic ulcer disease) ICD Codes: K27.9 - Peptic ulcer, site unspecified, unspecified as acute or chronic, without hemorrhage or perforation SNOMED: 40085832 (6) Dementia ICD Codes: F03.90 - Unspecified dementia without behavioral disturbance SNOMED: 40606725 (7) Gastric ulcer ICD Codes: K25.9 - Gastric ulcer, unspecified as acute or chronic, without hemorrhage or perforation SNOMED: 784928756 Status: stable Status Narrative Discussed with Dr. Crump. Assessment/Plan OB stool negative okay for DC per GI standpoint PPI + carafate monitor for diarrhea, send stool studies/cdiff if present zofran prn monitor H&H, prn transfusions bowel regime fu labs anemia work up outpatient GI procedures The patient was seen and examined at bedside and all new and available data was reviewed in the patients chart. I agree with the above findings, impression and plan. (Patient seen earlier today. Signature stamp does not reflect patient encounter time.). - Ortega Crump MD Subjective Subjective abdominal pain resolved Objective Last 24 Hour Vital Signs Date Time Temp Pulse Resp B/P (MAP) Pulse Ox O2 Delivery O2 Flow Rate FiO2 12/26/17 10:59 98.1 12/26/17 10:00 98.1 12/26/17 09:00 Room Air 12/26/17 08:00 98.1 62 18 113/55 (74) 96 98.1 12/26/17 04:00 98.1 59 19 119/60 (79) 95 98.1 12/26/17 00:00 98.8 60 18 112/54 (73) 92 98.8 12/25/17 21:00 Room Air 12/25/17 20:00 99.7 66 20 135/97 (110) 93 99.7 12/25/17 16:00 97.8 81 17 127/64 (85) 96 97.8 12/25/17 12:00 100.2 63 19 111/58 (75) 95 100.2 Intake and Output 12/25/17 12/26/17 19:00 07:00 Intake Total 1080 ml Balance 1080 ml IV Total 500 ml Other 580 ml # Voids 3 2 Laboratory Tests Test 12/25/17 12:35 12/25/17 16:22 12/26/17 07:35 Stool Occult Blood Negative (NEGATIVE) Urine Color Pale yellow Urine Appearance Clear Urine pH 6 (4.5-8.0) Urine Specific [place] 1.010 (1.005-1.035) Urine Protein Negative (NEGATIVE) Urine Glucose (UA) Negative (NEGATIVE) Urine Ketones Negative (NEGATIVE) Urine Occult Blood 1+ (NEGATIVE) H Urine Nitrite Negative (NEGATIVE) Urine Bilirubin Negative (NEGATIVE) Urine Urobilinogen Normal MG/DL (0.0-1.0) Urine Leukocyte Esterase 1+ (NEGATIVE) H Urine RBC 2-4 /HPF (0 - 2) H Urine WBC 2-4 /HPF (0 - 2) Urine Squamous Epithelial Cells Few /LPF (NONE/OCC) Urine Amorphous Sediment Few /LPF (NONE) H Urine Bacteria Few /HPF (NONE) White Blood Count 5.4 K/UL (4.8-10.8) Red Blood Count 4.03 M/UL (4.20-5.40) L Hemoglobin 11.7 G/DL (12.0-16.0) L Hematocrit 36.8 % (37.0-47.0) L Mean Corpuscular Volume 91 FL (80-99) Mean Corpuscular Hemoglobin 29.0 PG (27.0-31.0) Mean Corpuscular Hemoglobin Concent 31.8 G/DL (32.0-36.0) L Red Cell Distribution Width 12.2 % (11.6-14.8) Platelet Count 211 K/UL (150-450) Mean Platelet Volume 5.8 FL (6.5-10.1) L Neutrophils (%) (Auto) 66.0 % (45.0-75.0) Lymphocytes (%) (Auto) 19.3 % (20.0-45.0) L Monocytes (%) (Auto) 9.2 % (1.0-10.0) Eosinophils (%) (Auto) 4.2 % (0.0-3.0) H Basophils (%) (Auto) 1.3 % (0.0-2.0) Sodium Level 144 MMOL/L (136-145) Potassium Level 4.6 MMOL/L (3.5-5.1) Chloride Level 109 MMOL/L (98-107) H Carbon Dioxide Level 29 MMOL/L (21-32) Anion Gap 6 mmol/L (5-15) Blood Urea Nitrogen 15 mg/dL (7-18) Creatinine 0.8 MG/DL (0.55-1.30) Estimat Glomerular Filtration Rate > 60 mL/min (>60) Glucose Level 97 MG/DL (74-106) Calcium Level 9.0 MG/DL (8.5-10.1) Height (Feet): 5 Height (Inches): 8.00 Weight (Pounds): 150 General Appearance: WD/WN, no apparent distress, alert Cardiovascular: normal rate Respiratory/Chest: normal breath sounds, no respiratory distress Abdominal Exam: normal bowel sounds, non tender, soft Extremities: normal range of motion, non-tender Agusto Gudino NP Dec 26, 2017 11:21
[2017-12-26 11:55] VITALS: BP 117/56
--- NOTE | 2017-12-26 13:52 | General Progress Note ---
Assessment/Plan Problem List: (1) Nausea & vomiting ICD Codes: R11.2 - Nausea with vomiting, unspecified SNOMED: 82938924 (2) Abdominal pain ICD Codes: R10.9 - Unspecified abdominal pain SNOMED: 19366235 (3) UTI (urinary tract infection) ICD Codes: N39.0 - Urinary tract infection, site not specified SNOMED: 02284907 (4) FTT (failure to thrive) in adult ICD Codes: R62.7 - Adult failure to thrive SNOMED: 324457219 (5) Weak ICD Codes: R53.1 - Weakness SNOMED: 09478803 (6) Dementia ICD Codes: F03.90 - Unspecified dementia without behavioral disturbance SNOMED: 25443108 Status: stable, progressing Assessment/Plan ot pt diet abx pain control gi f/u dc to snf Subjective Constitutional: Reports: weakness Allergies: Coded Allergies: ASPIRIN (Verified Allergy, Unknown, 06/16/16) CELECOXIB (Verified Allergy, Unknown, 06/16/16) IBUPROFEN (Verified Allergy, Unknown, 06/16/16) All Systems: reviewed and negative except above Subjective sleepy in bed Objective Last 24 Hour Vital Signs Date Time Temp Pulse Resp B/P (MAP) Pulse Ox O2 Delivery O2 Flow Rate FiO2 12/26/17 11:55 97.8 59 18 117/56 (76) 94 97.8 12/26/17 10:59 98.1 12/26/17 10:00 98.1 12/26/17 09:00 Room Air 12/26/17 08:00 98.1 62 18 113/55 (74) 96 98.1 12/26/17 04:00 98.1 59 19 119/60 (79) 95 98.1 12/26/17 00:00 98.8 60 18 112/54 (73) 92 98.8 12/25/17 21:00 Room Air 12/25/17 20:00 99.7 66 20 135/97 (110) 93 99.7 12/25/17 16:00 97.8 81 17 127/64 (85) 96 97.8 Intake and Output 12/25/17 12/26/17 19:00 07:00 Intake Total 1080 ml 50 ml Balance 1080 ml 50 ml IV Total 500 ml 50 ml Other 580 ml # Voids 3 2 Laboratory Tests 12/25/17 16:22: Urine Color Pale yellow, Urine Appearance Clear, Urine pH 6, Urine Specific [place] 1.010, Urine Protein Negative, Urine Glucose (UA) Negative, Urine Ketones Negative, Urine Occult Blood 1+H, Urine Nitrite Negative, Urine Bilirubin Negative, Urine Urobilinogen Normal, Urine Leukocyte Esterase 1+H, Urine RBC 2-4H, Urine WBC 2-4, Urine Squamous Epithelial Cells Few, Urine Amorphous Sediment FewH, Urine Bacteria Few 12/26/17 07:35: White Blood Count 5.4, Red Blood Count 4.03L, Hemoglobin 11.7L, Hematocrit 36.8L , Mean Corpuscular Volume 91, Mean Corpuscular Hemoglobin 29.0, Mean Corpuscular Hemoglobin Concent 31.8L, Red Cell Distribution Width 12.2, Platelet Count 211, Mean Platelet Volume 5.8L, Neutrophils (%) (Auto) 66.0, Lymphocytes (%) (Auto) 19.3L, Monocytes (%) (Auto) 9.2, Eosinophils (%) (Auto) 4.2H, Basophils (%) (Auto) 1.3, Sodium Level 144, Potassium Level 4.6, Chloride Level 109H, Carbon Dioxide Level 29, Anion Gap 6, Blood Urea Nitrogen 15, Creatinine 0.8, Estimat Glomerular Filtration Rate > 60, Glucose Level 97, Calcium Level 9.0 Height (Feet): 5 Height (Inches): 8.00 Weight (Pounds): 150 General Appearance: lethargic EENT: normal ENT inspection Neck: normal alignment Cardiovascular: normal peripheral pulses, normal rate, regular rhythm Respiratory/Chest: chest wall non-tender, lungs clear, normal breath sounds Abdomen: normal bowel sounds, non tender, soft Extremities: normal inspection Edema: no edema noted Arm (L), no edema noted Arm (R), no edema noted Leg (L), no edema noted Leg (R), no edema noted Pedal (L), no edema noted Pedal (R), no edema noted Generalized Neurologic: motor weakness Skin: normal pigmentation, warm/dry Antonio Alston DO Dec 26, 2017 13:52
--- NOTE | 2017-12-26 13:57 | Pulmonology Progress Note ---
Assessment/Plan Problems: (1) Sepsis (2) Intractable nausea and vomiting (3) COPD (chronic obstructive pulmonary disease) (4) Dementia (5) Gastric ulcer Assessment/Plan all cultures negative no new complains respiratory treatment symptomatic treatment all reviewed dvt prophylaxis. dc planning Subjective ROS Limited/Unobtainable: No Constitutional: Reports: no symptoms HEENT: Repors: no symptoms Respiratory: Reports: no symptoms Allergies: Coded Allergies: ASPIRIN (Verified Allergy, Unknown, 06/16/16) CELECOXIB (Verified Allergy, Unknown, 06/16/16) IBUPROFEN (Verified Allergy, Unknown, 06/16/16) Objective Last 24 Hour Vital Signs Date Time Temp Pulse Resp B/P (MAP) Pulse Ox O2 Delivery O2 Flow Rate FiO2 12/26/17 11:55 97.8 59 18 117/56 (76) 94 97.8 12/26/17 10:59 98.1 12/26/17 10:00 98.1 12/26/17 09:00 Room Air 12/26/17 08:00 98.1 62 18 113/55 (74) 96 98.1 12/26/17 04:00 98.1 59 19 119/60 (79) 95 98.1 12/26/17 00:00 98.8 60 18 112/54 (73) 92 98.8 12/25/17 21:00 Room Air 12/25/17 20:00 99.7 66 20 135/97 (110) 93 99.7 12/25/17 16:00 97.8 81 17 127/64 (85) 96 97.8 Intake and Output 12/25/17 12/26/17 19:00 07:00 Intake Total 1080 ml 50 ml Balance 1080 ml 50 ml IV Total 500 ml 50 ml Other 580 ml # Voids 3 2 Objective General Appearance: WD/WN HEENT: atraumatic Respiratory/Chest: chest wall non-tender, lungs clear Breasts: no masses Cardiovascular: normal peripheral pulses Abdomen: soft, non tender, non distended Skin: no rash Laboratory Tests 12/25/17 16:22: Urine Color Pale yellow, Urine Appearance Clear, Urine pH 6, Urine Specific [place] 1.010, Urine Protein Negative, Urine Glucose (UA) Negative, Urine Ketones Negative, Urine Occult Blood 1+H, Urine Nitrite Negative, Urine Bilirubin Negative, Urine Urobilinogen Normal, Urine Leukocyte Esterase 1+H, Urine RBC 2-4H, Urine WBC 2-4, Urine Squamous Epithelial Cells Few, Urine Amorphous Sediment FewH, Urine Bacteria Few 12/26/17 07:35: White Blood Count 5.4, Red Blood Count 4.03L, Hemoglobin 11.7L, Hematocrit 36.8L , Mean Corpuscular Volume 91, Mean Corpuscular Hemoglobin 29.0, Mean Corpuscular Hemoglobin Concent 31.8L, Red Cell Distribution Width 12.2, Platelet Count 211, Mean Platelet Volume 5.8L, Neutrophils (%) (Auto) 66.0, Lymphocytes (%) (Auto) 19.3L, Monocytes (%) (Auto) 9.2, Eosinophils (%) (Auto) 4.2H, Basophils (%) (Auto) 1.3, Sodium Level 144, Potassium Level 4.6, Chloride Level 109H, Carbon Dioxide Level 29, Anion Gap 6, Blood Urea Nitrogen 15, Creatinine 0.8, Estimat Glomerular Filtration Rate > 60, Glucose Level 97, Calcium Level 9.0 Current Medications Medications (Trade) Dose Ordered Sig/[place] Route PRN Reason Start Time Stop Time Status Last Admin Dose Admin Acetaminophen (Tylenol) 650 mg Q4H PRN ORAL Mild Pain/Temp > 100.5 12/25/17 09:30 01/20/18 09:29 12/26/17 10:00 Al Hydroxide/Mg Hydroxide (Mylanta II) 30 ml Q6H PRN ORAL dyspepsia 12/21/17 14:45 01/20/18 14:44 Diphenhydramine HCl (Benadryl) 25 mg Q6H PRN ORAL Itching/Pruritis 12/21/17 14:45 01/20/18 14:44 Duloxetine HCl (Cymbalta) 30 mg DAILY ORAL 12/22/17 09:00 01/21/18 08:59 12/26/17 09:47 Folic Acid (Folate) 1 mg DAILY ORAL 12/24/17 09:00 01/23/18 08:59 12/26/17 09:46 Gabapentin (Neurontin) 400 mg TWICE A DAY ORAL 12/21/17 18:00 01/20/18 17:59 12/26/17 09:46 Heparin Sodium (Porcine) (Heparin 5000 units/ml) 5,000 units EVERY 12 HOURS SUBQ 12/21/17 21:00 01/20/18 20:59 12/26/17 09:50 Lorazepam (Ativan) 1 mg Q6H PRN ORAL For Anxiety 12/25/17 04:00 01/01/18 03:59 Memantine (Namenda) 5 mg TWICE A DAY ORAL 12/21/17 18:00 01/20/18 17:59 12/26/17 09:46 Montelukast Sodium (Singulair) 10 mg DAILY ORAL 12/22/17 09:00 01/21/18 08:59 12/26/17 09:47 Morphine Sulfate (Morphine Sulfate) 2 mg Q4H PRN IVP Severe Pain (Pain Scale 7-10) 12/21/17 14:45 12/28/17 14:44 Nitroglycerin (Ntg) 0.4 mg Q5M X 3 DOSES PRN SL Prn Chest Pain 12/21/17 14:45 01/20/18 14:44 Olanzapine (ZyPREXA) 15 mg QHS ORAL 12/21/17 21:00 01/20/18 20:59 12/25/17 21:17 Ondansetron HCl (Zofran) 4 mg Q6H PRN IVP Nausea & Vomiting 12/21/17 14:45 01/20/18 14:44 12/21/17 20:32 Pantoprazole (Protonix) 40 mg DAILY ORAL 12/22/17 09:00 01/21/18 08:59 12/26/17 09:46 Polyethylene Glycol (Miralax) 17 gm HSPRN PRN ORAL Constipation 12/21/17 21:00 01/20/18 20:59 Quetiapine Fumarate (SEROquel) 50 mg QHS ORAL 12/21/17 21:00 01/20/18 20:59 12/25/17 21:17 Sodium Chloride 1,000 ml @ 50 mls/hr Q20H IV 12/21/17 17:00 01/20/18 16:59 12/25/17 21:16 Temazepam (Restoril) 15 mg HSPRN PRN ORAL Insomnia 12/21/17 21:00 12/28/17 20:59 Theophylline (Norberto-Dur) 100 mg EVERY 12 HOURS ORAL 12/21/17 21:00 01/20/18 20:59 12/26/17 09:47 Gabino Almanza MD Dec 26, 2017 13:57
--- NOTE | 2017-12-26 14:15 | Progress Note ---
DATE: 12/26/2017 NOTE: POOR AUDIO SUBJECTIVE: The patient is a 67-year-old female, who is anxious, disorganized, confused, paranoid. MENTAL STATUS EXAMINATION: This is a 67-year-old female. auditory hallucinations and paranoid delusions. Denies suicidal or homicidal thoughts. disorganized thought process. Insight and judgment is poor. DIAGNOSIS: Paranoid schizophrenia with acute exacerbation. PLAN: Treatment with Seroquel 50 mg at bedtime, Namenda 5 mg twice a day, Cymbalta 30 a day, and Zyprexa 5 mg at bedtime. Provided 18 to 20 minutes of cognitive behavioral therapy . Seen and assessed at bedside. Chart reviewed. Discussed with staff. Lizzie Haile M.D. DR: CORINNE JOB#: [id number] CC:
--- NOTE | 2017-12-27 09:57 | Discharge Summary ---
Discharge Summary Discharge Summary _ DATE OF ADMISSION: 12/21/2017 DATE OF DISCHARGE: 12/26/2017 REASON FOR ADMISSION: 67 years old female with past medical history significant for COPD, diabetes mellitus, gastric ulcer, IBS , fibromyalgia, schizophrenia, dementia, recently diagnosed with Jean Marie disease, presented from the [facility] facility with episodes of repeated vomiting. Patient stated that could be because of gastritis. Patient reported EGD and colonoscopy with biopsy were done last year. Patient reported compliance with her medications, however patient had underlying dementia and her history was unreliable. On evaluation vital signs were stable , mild anemia with hemoglobin 11.7 hematocrit 36.1. Urinalysis revealed mild pyuria but no bacteria . Urine toxicology screen was negative. Electrolytes were stable. Troponin was negative. EKG with normal sinus rhythm, no l acute ischemic changes. Chest x-ray showed mild hyperinflation likely COPD changes, given history of COPD, Abdominal ultrasound was negative. Patient admitted with diagnosEs of abdominal pain, intractable nausea AND vomiting CONSULTANTS: insurance sales representative dr. Cruz neurologist Dr. Lagunas pulmonary Dr. Almanza ID specialist Dr. Bacon GI specialist psychiatrist Dr. Haile [facility] HOSPITAL COURSE: Patient admitted. Patient initially kept nothing by mouth. Patient was on IV fluids. [facility] medications resumed. GI and ID specialist closely followed. Symptomatic treatment provided with antiemetic as needed. Patient was on PPI and Carafate. Bowel regimen instituted. Hemoglobin and hematocrit were closely monitored with goal to keep hemoglobin above 7. Hemoglobin and hematocrit remained stable throughout patient's stay in the hospital. Anemia workup revealed stable iron but showed folic acid deficiency. Patient started on folic acid supplement. Stool for occult blood was negative. GI recommended outpatient GI procedure. Pain management was addressed, and pain was controlled. ID specialist closely followed. No evidence of infection. Abdominal ultrasound [id number] negative; chest x-ray with mild COPD changes, left basilar atelectasis, but no acute cardiopulmonary pathology. No leukocytosis. Infectious disease specialist recommended to monitor patient off antibiotics, unless persistent high fever and hemodynamically unstable. If recurrent vomiting and abdominal pain or worsening fever, recommend contrast CT. Blood culture were negative HIV and RPR tests were negative. Neurologist seen and evaluated patient. 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 Patient dystonic and dyskinetic movement could be due to the drug-related etiology as she was on neuroleptic and most probably for some time. However Jean Marie disease could also cause the symptoms similar to what patient was exhibited. Neurologist recommended to confirm or refute the diagnosis of Jean Marie disease. It diagnosis confirmed, he recommended to consider starting patient on tetrabenazine to help with movement disorder Patient noted at some point to have hypotension . Cardiology consult was requested . Per insurance sales representative , continue well-hydrate patient . Blood pressure stabilized. Patient was asymptomatic. Supplemental oxygen provided as needed to keep pulse oximetry above 92%. Pulmonary toilet was on standby as needed. Venous duplex bilateral lower extremity was negative for evidence of acute DVT. DVT prophylaxis provided. Psychiatry seen and evaluated the patient, and diagnosed patient with paranoid schizophrenia with acute exacerbation . Psychiatrist optimized psychiatric medication regimen . Patient clinically improved. Patient was working with physical and occupational therapists. Fall precautions were maintained. Blood sugar was managed with sliding scale of insulin on as needed basis. Hemoglobin A1c- 5.9, at goal. Patient started on diet with aspiration precaution. Patient was able to tolerate diet . No further episodes of nausea and vomiting. Abdominal pain controlled. Patient was stable for discharge back to [facility] for continuation of care FINAL DIAGNOSES: Intractable nausea and vomiting Abdominal pain IBS Gastric ulcer Folic acid deficiency Anemia Hypertension COPD Chronic pain syndrome Neuropathy Anemia GERD Dementia Diabetes mellitus Paranoid schizophrenia with acute exacerbation Failure to thrive DISCHARGE MEDICATIONS: See Medication Reconciliation list. DISCHARGE INSTRUCTIONS: Patient was discharged to the [facility] facility. Follow up with medical doctor at the facility. I have been assigned to dictate discharge summary for this account. I was not involved in the patient's management. Marce Jean NP Dec 27, 2017 09:57
== END 2017-12-26 16:55 | DRG 392 ==
LOC: EDBD 12:10 → EMR 13:22 → 4E 14:05 → EDBEDREQ 14:25 → 4E 15:47
DX: R10.9 Unspecified abdominal pain (principal); N39.0 Urinary tract infection, site not specified; F20.0 Paranoid schizophrenia; G10 Huntington's disease; R11.2 Nausea with vomiting, unspecified; K58.9 Irritable bowel syndrome, unspecified; E53.8 Deficiency of other specified B group vitamins; J44.9 Chronic obstructive pulmonary disease, unspecified; G89.4 Chronic pain syndrome; I95.9 Hypotension, unspecified; G62.9 Polyneuropathy, unspecified; D64.9 Anemia, unspecified; K21.9 Gastro-esophageal reflux disease without esophagitis; F03.90 Unspecified dementia, unspecified severity, without behavioral disturbance, psychotic disturbance, mood disturbance, and anxiety; E11.9 Type 2 diabetes mellitus without complications; K25.9 Gastric ulcer, unspecified as acute or chronic, without hemorrhage or perforation; I10 Essential (primary) hypertension; R62.7 Adult failure to thrive; Z88.6 Allergy status to analgesic agent; Z88.8 Allergy status to other drugs, medicaments and biological substances; M79.7 Fibromyalgia; R25.8 Other abnormal involuntary movements; G24.9 Dystonia, unspecified; E86.1 Hypovolemia; K29.70 Gastritis, unspecified, without bleeding
CPT/HCPCS: 36415; 71045; 76700; 80048; 80053; 80307; 81001; 81003; 82150; 82270; 82306; 82378; 82607; 82746; 82962; 83036; 83540; 83550; 83690; 83880; 84165; 84443; 84484; 85025; 85610; 85651; 85730; 86592; 86703; 86780; 87040; 87081; 93005; 93970; 99285; J1815; J2405